=== PATIENT | female | born 1960 | race Caucasian/White ===

== ENCOUNTER → 2018-01-14 08:12 | Outpatient (CLI) | payer OTHER, SELFPAY ==
[2018-01-14 10:37] LABS: AST(SGOT) 22 U/L (15-37); Alanine Aminotransfer ALT/SGPT 29 U/L (13-56); Cholesterol 146 mg/dL (200); High Density Lipoprotein 38 mg/dL; Thyroid Stim Hormone (TSH) 0.82 uIU/mL (0.358-3.74); Triglycerides 100 mg/dL; Very Low Density Lipoprotein 20 mg/dL (5-40)
[2018-01-15 08:54] LABS: Vitamin D,25 Hydroxy 20.5 ng/mL (29.95-100.01)
== END ==
PROVIDERS: Family Provider Family Medicine; PCP Family Medicine; Visit Provider Family Medicine
DX: E78.00 Pure hypercholesterolemia, unspecified (principal); E03.9 Hypothyroidism, unspecified; E55.9 Vitamin D deficiency, unspecified
CPT/HCPCS: 36415; 80061; 82306; 84443; 84450; 84460

== ENCOUNTER → 2018-04-14 13:23 | Outpatient (CLI) | payer OTHER, SELFPAY ==
--- NOTE | 2018-04-14 13:23 | DT_ITS ---
This patient was seen during an EMR downtime April 14, 2018 - April 21, 2018. This patient may have a combination of paper and electronic documentation or all paper documentation. All documentation is viewable within the e-chart portion of [employer] for each patient visit.
--- NOTE | 2018-04-14 13:25 | BI_ITS ---
MAMMOGRAPHY - BILATERAL SCREENING REASON FOR EXAM: Female, 57 years old. Routine annual screening examination. PERTINENT HISTORY: FAM HX OF AUNT @ AGE 49 - NO PREV SURG'S - BILAT MOLES MARKED TECHNIQUE: Digital bilateral breast kanu (3D mammographic acquisition) in the CC and MLO projections. 2-D mediolateral oblique (MLO) and craniocaudad (CC) views of both breasts were obtained. CAD: Full Field Digital Mammography with Computer Added Detection was performed. COMPARISON: 05/17/2017, 05/17/2016 and 03/19/2014 FINDINGS: Breast Composition: The breasts are heterogeneously dense, which may obscure small masses. There are no dominant masses or suspicious calcifications. No other significant abnormalities are identified. BI/SCREENING MAMM (CAD), BILAT IMPRESSION: Stable bilateral screening mammogram. Yearly follow-up mammogram recommended. (A) ASSESSMENT CATEGORY: BIRADS Category 2: Benign. A letter regarding these results will be sent to the patient by the facility within 30 days. Approximately 10% of breast cancers are not detected by mammography. A normal mammogram should not delay biopsy of a clinically suspicious abnormality. [id number] Electronically Signed: Emilio Dowell MD at 14:11 EDT Tel , Service support ,
== END ==
PROVIDERS: Family Provider Family Medicine; PCP Family Medicine; Visit Provider Obstetrics & Gynecology
DX: Z12.31 Encounter for screening mammogram for malignant neoplasm of breast (principal)
CPT/HCPCS: 77063; 77067

== ENCOUNTER 2018-08-20 10:27 | Day surgery (SDC) | payer OTHER, SELFPAY ==
--- NOTE | 2018-08-15 15:13 | EKG12_ITS ---
Test Reason : PREOP Blood Pressure : / mmHG Vent. Rate : 068 BPM Atrial Rate : 068 BPM P-R Int : 188 ms QRS Dur : 090 ms QT Int : 398 ms P-R-T Axes : 025 012 034 degrees QTc Int : 423 ms Normal sinus rhythm Septal infarct , age undetermined Abnormal ECG Confirmed by YANG ESPINOZA, OTTONIEL ([id number]), greeting card editor ROSEANN CERVANTES ([id number]) on 08/18/2018 2:23:01 PM Referred By: Jane Howard Confirmed By:OTTONIEL SORIA MD
[2018-08-15 16:47] LABS: Thyroid Stim Hormone (TSH) 2.29 uIU/mL (0.358-3.74)
[2018-08-20] VITALS (10 sets, daily range): BP systolic 113–127; BP diastolic 68–80; PULSE 58–88; RESP 16–18; TEMP 36.4–37.1; O2SAT 94–100; BMI 28.5
[2018-08-20 11:07] LABS: Hematocrit 45.9 % (37-47); Hemoglobin 15.2 g/dl (12.0-15.0); Mean Corp Hgb Conc 33.1 g/gl (32-36); Mean Corpuscular Volume 93.7 fL (81-99); Mean Platelet Vol. 9.2 fl (6.2-12.0); Platelet Count 205 K/mm3 (150-450); RBC Distribution Width SD 44.3 fl (35.1-43.9); White Blood Count 7.1 K/mm3 (4.4-11.0)
[2018-08-20 11:09] LABS: Scan Indicated on CBC? Y/N NO
[2018-08-20 11:13] LABS: International Normalized Ratio 1.1
[2018-08-20 11:14] LABS: Partial Thromboplast Time 34.7 Seconds (24.1-36.2)
--- NOTE | 2018-08-20 12:19 | PCM.DC.VHY ---
Discharge Diet: No Restrictions Discharge Activity: May not drive while taking narcotic pain medications., May Shower, May Take a Tub Bath Return to work on:: 09/29/18 May resume sexual activity in: 4-6 weeks Lifting Restrictions: 20 # or less for 4-6 wk to allow healing Call your doctor if you observe: Fever of 101 or Higher, Inability to have a bowel movement, Using more than one pad per hour, Calf discomfort, Uncontrolled pain Additional Instructions: OK to walk as tolerated. Allergies/Adverse Reactions: Allergies No Known Allergies Allergy (Verified 08/13/18 14:30) Medications to take at Discharge Cholecalciferol (VIT D3) [Vitamin D3] 2,000 unit PO DAILY 07/01/15 Levothyroxine [Synthroid] 75 mcg PO DAILY 07/01/15 Atorvastatin Calcium [Lipitor] 10 mg PO QHS 08/13/18 L.acidoph,Paracasei, B.lactis [Probiotic] 1 each PO DAILY 08/13/18 Multivits Min/Iron/FA/Herb#186 [Hair, Skin and Nails Caplet] 1 each PO DAILY 08/13/18 Ubidecarenone [Coq10] 100 mg PO DAILY 08/13/18 Docusate Sodium [Colace] 100 mg PO BID #30 capsule 08/20/18 Naproxen [Naprosyn] 250 - 500 mg PO TID PRN #30 tablet 08/20/18 Oxycodone [Oxyir] 5 - 10 mg PO Q6H PRN PRN 7 Days #20 tablet 08/20/18 The following prescriptions were given: Oxycodone [Oxyir] 5 - 10 mg PO Q6H PRN PRN 7 Days #20 tablet PRN Reason: Mod-Severe Pain (-08/20) Docusate Sodium [Colace] 100 mg PO BID #30 capsule Primary Care Physician: Tory Hernandez MD [Primary Care Provider] - Test Results: Test results from this visit will be discussed in further detail at your follow-up appointment, if applicable. Please Follow Up With: Jane Howard MD - [phone] When: in 2 wks as scheduled for postop follow up appointment Proposed Discharge Date: 08/21/18
--- NOTE | 2018-08-20 12:26 | DCINST_ITS ---
Discharge Diet: No Restrictions Discharge Activity: May not drive while taking narcotic pain medications., May Shower, May Take a Tub Bath Return to work on:: 09/29/18 May resume sexual activity in: 4-6 weeks Lifting Restrictions: 20 # or less for 4-6 wk to allow healing Call your doctor if you observe: Fever of 101 or Higher, Inability to have a bowel movement, Using more than one pad per hour, Calf discomfort, Uncontrolled pain Additional Instructions: OK to walk as tolerated. Allergies/Adverse Reactions: Allergies No Known Allergies Allergy (Verified 08/13/18 14:30) Medications to take at Discharge Cholecalciferol (VIT D3) [Vitamin D3] 2,000 unit PO DAILY 07/01/15 Levothyroxine [Synthroid] 75 mcg PO DAILY 07/01/15 Atorvastatin Calcium [Lipitor] 10 mg PO QHS 08/13/18 L.acidoph,Paracasei, B.lactis [Probiotic] 1 each PO DAILY 08/13/18 Multivits Min/Iron/FA/Herb#186 [Hair, Skin and Nails Caplet] 1 each PO DAILY 08/13/18 Ubidecarenone [Coq10] 100 mg PO DAILY 08/13/18 Docusate Sodium [Colace] 100 mg PO BID #30 capsule 08/20/18 Naproxen [Naprosyn] 250 - 500 mg PO TID PRN #30 tablet 08/20/18 Oxycodone [Oxyir] 5 - 10 mg PO Q6H PRN PRN 7 Days #20 tablet 08/20/18 The following prescriptions were given: Oxycodone [Oxyir] 5 - 10 mg PO Q6H PRN PRN 7 Days #20 tablet PRN Reason: Mod-Severe Pain (-08/20) Docusate Sodium [Colace] 100 mg PO BID #30 capsule Primary Care Physician: Tory Hernandez MD [Primary Care Provider] - Test Results: Test results from this visit will be discussed in further detail at your follow- up appointment, if applicable. Please Follow Up With: Jane Howard MD - [phone] When: in 2 wks as scheduled for postop follow up appointment Proposed Discharge Date: 08/21/18
--- NOTE | 2018-08-20 12:30 | UT_PTH ---
PATIENT: TILA NEGRO LOC: [facility] – [place] U#:[id number] AGE/SX: 57/F ROOM: RE08/20/[address]: Dr. Jane Howard MD : 1960 BED: DIS: 08/21/2018 SPEC #: [id number] RECD: 08/21/18 09:32 STATUS: MEGHAN NICANOR #: [id number] GURINDER: 08/20/18 12:[address]: Jane Howard DEPT: SURGICAL PATHOLOGY RECD BY: Simon Springer ENTERED: 08/21/18 12:03 SP TYPE: UTERUS OTHR DR: Dr. Tory Hernandez MD Tissues: Uterus, NOS Procedures: Surgery Specimen Level V HEADER OPERATION: Vaginal hysterectomy, A & P repair PRE-OP DIAGNOSIS: Incomplete uterovaginal prolapse, cystocele, rectocele TISSUE SUBMITTED: Uterus and vaginal mucosa MICROSCOPIC DIAGNOSIS Uterus, hysterectomy: Cervix - minimal chronic inflammation. Endometrium - weakly proliferative to inactive endometrium. Myometrium - adenomyosis. Vaginal mucosa, anterior and posterior repair: Vascular congestion and mild chronic inflammation. AM:isaiah 08/22/18 COMMENT Case has been reviewed in consultation with Dr. Pat who concurs with the above diagnosis. IDC:SJ MICROSCOPIC DESCRIPTION Slides are reviewed. GROSS DESCRIPTION Received in fixative is one container labeled with the patient's name and designated uterus and vaginal mucosa. The specimen consists of a hysterectomy specimen consisting of uterus with cervix and detached pieces of mucosal tissue. The uterus with cervix weighs 37.2 gm and measures 7.5 x 3.5 x 3 cm. The serosal surface is congested. The ectocervical mucosa is unremarkable. The external os is slitlike in contour. The endocervical canal measures 2 cm in length and the endocervical mucosa is chapin, glistening and unremarkable. The endometrial cavity is narrow and measures 3.5 cm in length and up to 1 cm in width. The endometrium is chapin, congested and without any mass lesion and measures <0.1 cm in thickness. Sections of the uterine wall do not reveal any mass lesion and it measures up to 1.5 cm in thickness. Also present in the container are six variable sized pieces of chapin mucosal tissue measuring in aggregate 5 x 4 x 1 cm. No mucosal lesion is identified. Paranormal Investigator sections are submitted in seven cassettes as follows: 1 - anterior cervix, 2 - posterior cervix, 3 & 4 - anterior uterine wall, 5 & 6 - posterior uterine wall, 7 - mucosal tissue. / ELKE:isaiah 08/21/18 TC:5 CPT: 31282
[2018-08-20] MEDS: Lubricating Jelly 60 GM Tube 30 GM TOPICAL (12:45)
--- NOTE | 2018-08-20 16:38 | PCM.OP.BLANK ---
Operative Report Date of Procedure: 08/20/18 PROCEDURE: Total vaginal hysterectomy. Anterior and posterior repair Preoperative diagnosis: Symptomatic , incomplete uterovaginal prolapse Grade I uterine prolapse Moderate rectocele Mild cystocele Postop diagnosis: Symptomatic , incomplete uterovaginal prolapse Grade I uterine prolapse Moderate rectocele Mild cystocele Anesthesia: General Dr. Morales, Gurjit Johnson MD and Wallace Watkins CRNA Surgeon: Jane Howard MD [employer] Principal: ALEXI Farris RNFA EBL 200 cc Complications: none Drains: Frias draining clear yellow urine Fluids: replacement LR Findings: On exam under anesthesia, the cervix has mild prolapse and is parous appearing. There is a small cystocele, and rectocele noted. PATH: Uterus, Strips of vaginal mucosa. Narrative account: After the risks, benefits and alternatives of the procedure were reviewed with the patient , informed consent was obtained. The patient was taken to the Operating room with an IV running . She was positioned in the dorsal supine position on the operating table and given general anesthesia. Once asleep she was positioned to the dorsal lithotomy position and prepped and draped in the usual sterile fashion. A Frias catheter was inserted to drain the bladder and left open to drain in the drape. The weighted speculum was placed into the vagina and a single tooth tenaculum was placed at the cervix. The cervical mucosal was then incised circumferentially using Bovie cautery and a knife. The posterior cul de sac was entered by sharp dissection with Garduno scissors and a weighted speculum was placed into the posterior cul se sac. Dissection then was initiated at the anterior cervix to enter the anterior cul se sac. The uterosacral ligaments were clamped bilaterally with curved Balaji clamps and the pedicles divided and suture ligated and tagged for later identification. Next the cardinal ligament was clamped bilaterally and divided and suture ligated. Adequate hemostasis was noted. The anterior cul de sac peritoneum was then entered by sharp dissection and a narrow Martinez retractor was placed into the anterior cul de sac to retract the bladder out of harm's way for the remainder of the case. The uterine arteries were clamped bilaterally , divided and suture ligated. Dissection then continued along each side of the uterus. Each pedicle was secured with a Balaji clamp, divided and suture ligated until ultimately the uterine fundus was reached. The superior pedicles on each side were secured with a curved Balaji clamp and the uterus and attached fallopian tubes were surgically amputated and set aside. The superior pedicle was then suture ligated, then free tied and tagged for identification. The superior pedicles were dry. There was bleeding noted along the posterior vaginal cuff and along the anterior vaginal cuff . The peritoneum was then closed with a running purse string suture of 1 Vicryl, incorporating the superior pedicles and uterosacral ligament tags. There was bleeding noted at the R uterine angle and this area was oversewn with a figure of eight stitch of 1 Vicryl. Attention was then turned to the anterior repair. Allis clamps were used to grasp the anterior vaginal mucosa and the vaginal mucosa was dissected from from the underlying pubovesical cervical fascia from the vaginal cuff to a point approximately 1-2 cm away from the urethra. Liliya plication stitches of 1Vicryl were placed, reducing the small cystocele. The anterior vaginal mucosa was trimmed and the anterior vaginal incision was then repaired with interrupted stitches of 2-0 chromic. The posterior vaginal cuff was then reapproximated with the posterior cul de sac peritoneum in a running locked fashion with 1 Vicryl for hemostasis. The vaginal cuff was then reapproximated with interrupted and fig of eight stitches of 1-0 Vicryl . Excellent hemostasis was noted. Attention was then turned to the posterior repair A triangular piece of tissue was excised at the posterior vagina / perineal body and the posterior vaginal longitudinal incision was then created using Metzenbaum scissors. The linear incision was carried from the posterior introitus to approx 2-3 cm proximal to the vaginal cuff repair. The vaginal epithelium was then dissected from the underlying rectovaginal septum. Liliya plication stitches of 1-0 Vicryl were then placed reducing the rectocele. The posterior vaginal mucosa was trimmed and the linear incision closed with 2-0 chromic in a running locked fashion. Vaginal packing was then inserted: 1 plain gauze Excellent hemostasis was noted. The Frias was attached to the Frias bag and clear yellow urine returned. The patient was then awaked from general anesthesia and transferred to the recovery room bed in stable condition after tolerating the procedure well. Sponge, lap, needle and instrument counts correct times two. Medications given preop and intraoperatively included: Cefotetan IV was given chemical radiation technician to the operating room. For a complete listing of medications given preop and intraoperatively, please see the anesthesia record.
[2018-08-20] MEDS: Ketorolac 30 MG/ML Syringe IV (18:10)
[2018-08-20] MEDS: Lactated Ringers 1,000 ML 125 ML IV (18:10)
[2018-08-20] MEDS: 0.9% NaCl Peripheral Flush Adult/Peds IV (18:10)
[2018-08-20] MEDS: Docusate Sodium 100 MG Capsule PO (21:19)
[2018-08-20] MEDS: Atorvastatin Calcium 10 MG Tablet PO (21:19)
[2018-08-21] MEDS: Ketorolac 30 MG/ML Syringe IV ×2 (00:23→05:44)
[2018-08-21] MEDS: 0.9% NaCl Peripheral Flush Adult/Peds IV ×2 (00:23→05:44)
[2018-08-21 02:40] VITALS: BP 116/72; PULSE 78; RESP 18; TEMP 36.8; O2SAT 97
[2018-08-21] MEDS: Levothyroxine 75 MCG Tablet PO (05:44)
[2018-08-21 06:47] LABS: Hematocrit 39.9 % (37-47); Hemoglobin 13.3 g/dl (12.0-15.0); Mean Corp Hgb Conc 33.3 g/gl (32-36); Mean Corpuscular Hgb 31.4 pg (27.0-32.0); Mean Corpuscular Volume 94.1 fL (81-99); Mean Platelet Vol. 9.4 fl (6.2-12.0); Platelet Count 163 K/mm3 (150-450); RBC Distribution Width CV 12.7 % (11.6-14.6); Red Blood Count 4.24 M/mm3 (4.2-5.4); White Blood Count 9.7 K/mm3 (4.4-11.0)
[2018-08-21 06:49] LABS: Scan Indicated on CBC? Y/N NO
[2018-08-21 07:00] LABS: Creatinine, Serum 0.78 mg/dL (0.55-1.02); EST Glomerular Filtration Rate 81 mL/min (>60); Est Glom Filt Rate - Afr Amer 98 mL/min (>60); Estimated Creatinine Clearance 70.74 ml/min
[2018-08-21 07:15] VITALS: O2SAT 92
--- NOTE | 2018-08-21 07:58 | PCM.PROGNOTE ---
Subjective: POD#1 TVH, A and P repair Doing well. Pain control adequate Rates at 1-2/ this am. Has been getting Toradol. Using K pad off and on. No N/V Some motion sickness initially postop. No concerns today. - Physical Exam General: Alert, Oriented x3, Cooperative, No apparent distress HEENT: Atraumatic Neck: Supple Abdomen: Soft, Non Tender Neurological: Cranial nerves II-XII grossly intact Psych/Mental Status: Normal Affect Comment: Peripad with scant dischg. White in place Vaginal packing removed. Vital Signs Temp Pulse Resp BP Pulse Ox 98.2 F 78 18 116/72 97 08/21/18 02:40 08/21/18 02:40 08/21/18 02:40 08/21/18 02:40 08/21/18 02:40 Oxygen Flow Rate (L/min) 2 Oxygen Delivery Method Room Air Weight: 79.2 kg Body Mass Index (BMI) 28.5 Intake and Output for Last 24 Hours 08/19/18 08/20/18 08/21/18 23:59 23:59 23:59 Intake Total 1983 / 1983 1759 / 1759 Output Total 150 / 150 825 / 825 Balance 1834 / 1834 934 / 934 Laboratory Tests Past 24 Hrs 08/20/18 08/20/18 08/20/18 11:00 11:00 11:00 WBC 7.1 RBC 4.90 Hgb 15.2 H Hct 45.9 MCV 93.7 MCH 31.0 MCHC 33.1 RDW 13.0 RDW Differential 44.3 H Plt Count 205 MPV 9.2 PT 14.0 INR 1.1 APTT 34.7 Creatinine Estim Creat Clear Calc Est GFR (MDRD) Af Amer Est GFR (MDRD) Non-Af Blood Type A POSITIVE Antibody Screen NEGATIVE 08/21/18 08/21/18 06:24 06:24 WBC 9.7 RBC 4.24 Hgb 13.3 Hct 39.9 MCV 94.1 MCH 31.4 MCHC 33.3 RDW 12.7 RDW Differential 43.0 Plt Count 163 MPV 9.4 PT INR APTT Creatinine 0.78 Estim Creat Clear Calc 70.74 Est GFR (MDRD) Af Amer 98 Est GFR (MDRD) Non-Af 81 Blood Type Antibody Screen Medical Necessity - Tobacco Use Smoking Status: Never smoker Assessment/Plan POD#1 TVH, A and P repair. Stable postop. Inc diet and activity sa tolerated. Begin po meds. D/C white for voiding trial. Dischg later today if criteria met. RTO in 2 kw for postop check.
[2018-08-21 08:50] VITALS: BP 111/69; PULSE 76; RESP 16; TEMP 36.6; O2SAT 94
[2018-08-21] MEDS: Enoxaparin 40 MG/0.4 ML Syringe SC (08:57)
[2018-08-21] MEDS: Polyethylene Glycol 3350 17 GM PACKET PO (08:57)
[2018-08-21] MEDS: Docusate Sodium 100 MG Capsule PO (08:57)
== END 2018-08-21 10:30 | disposition home or self-care (01) ==
LOC: SDC 10:28 → AC 10:28 → MS2 15:00
PROVIDERS: Family Provider Family Medicine; PCP Family Medicine; Visit Provider Obstetrics & Gynecology
PROC: (CPT 58260; principal; 2018-08-20 12:10)
DX: N81.2 Incomplete uterovaginal prolapse (principal); N72 Inflammatory disease of cervix uteri; N80.0 Endometriosis of uterus; N76.1 Subacute and chronic vaginitis; R32 Unspecified urinary incontinence; E07.9 Disorder of thyroid, unspecified; Z79.899 Other long term (current) drug therapy
CPT/HCPCS: 57285; 58260; 36415; 82565; 84443; 85027; 85610; 85730; 86850; 86900; 88307; 93005; J7120; A4216; J2405

== ENCOUNTER → 2018-10-20 15:19 | Outpatient (CLI) | payer OTHER, SELFPAY ==
[2018-08-20 15:59] VITALS: BMI 28.5
--- NOTE | 2018-10-20 15:22 | RAD_ITS ---
STUDY: X-RAY - RIGHT SHOULDER REASON FOR EXAM: Female, 58 years old. Pain for 2 months. TECHNIQUE: 4 view(s) of the shoulder. COMPARISON: None. FINDINGS: Normal glenohumeral articulation. Normal acromioclavicular joint. Normal acromion. Normal humeral head and visualized proximal humerus. The soft tissue structures are unremarkable. Normal visualized pulmonary apex. RAD/Shoulder min 2 Views IMPRESSION: Normal x-ray examination of the shoulder. Electronically Signed: Brock De La Rosa MD at 4:07 EST , Service support ,
--- OUTSIDE RECORDS SUMMARY | 2018-12-06 21:47 | XMS RPT_ITS ---
:1960 Author Organization [place] Support Name Relationship Address Phone RICHARDDAMARIS Unavailable Unavailable + [employer] Unavailable [address] + [place] [address] DWIGHT NEGRO Unavailable [address] + [place] [address] RICHARD DAMARIS Unavailable Unavailable + [employer] Unavailable [address] + [place] [address] DWIGHT NEGRO Unavailable [address] + [place] [address] BLAKE RAMOSA Unavailable Unavailable + [employer] Unavailable [address] + [place] [address] DWIGHT NEGRO Unavailable [address] + [place] [address] BLAKE RAMOSA Unavailable Unavailable + [employer] Unavailable [address] + [place] [address] DWIGHT NEGRO Unavailable [address] + [place] [address] BLAKE RAMOSA Unavailable Unavailable + [employer] Unavailable [address] + [place] [address] DWIGHT NEGRO Unavailable [address] + [place] [address] BLAKE RAMOSA Unavailable Unavailable + [employer] Unavailable [address] + [place] [address] Sharri NEGRO Unavailable [address] + [place] [address] DAMARIS RAMOS Unavailable . + VELMA, [place] U [employer] Unavailable [address] + [place] [address] Sharri NEGRO Unavailable [address] [facility] [address] + [place] [address] Care Team Providers Name Role Phone Tory Hernandez Attending Unavailable Jolliff, Tory Referring Unavailable Jolliff, Tory Primary Care Unavailable Jolliff, Tory Attending Unavailable Jolliff, Tory Primary Care Unavailable Jolliff, Tory Referring Unavailable Jolliff, Tory Primary Care Unavailable Referred, Self Attending Unavailable Jolliff, Tory Attending Unavailable Jolliff, Tory Primary Care Unavailable Benekos, Jane Attending Unavailable Jolliff, Tory Primary Care Unavailable Benekos, Jane Referring Unavailable Benekos, Jane Attending Unavailable Benekos, Jane Referring Unavailable Jolliff, Tory Primary Care Unavailable Jose Ramon, Hutchinson Attending Unavailable Benekos, Jane Referring Unavailable PROBLEMS PROBLEMS DATE TYPE CONDITION / CODE ATTENDING STATUS SOURCE 11/26/2018 Unknown S46.919D - Strain of Mary, Tory Active [place] unspecified muscle, Community fascia and tendon at Hospital shoulder and upper arm Repository level, unspecified arm, subsequent encounter / S46.919D(ICD-10) 08/21/2018 Unknown R10.9 - Unspecified Benekos, Jane Active [place] abdominal pain / Community R10.9(ICD-10) Hospital Repository 08/21/2018 Unknown Z90.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, 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 / Hospital Z90.710(ICD-10) Repository 09/11/2018 Unknown R94.31 - Abnormal Jose Ramon, Thomas Active [place] electrocardiogram Community [ECG] [EKG] / Hospital R94.31(ICD-10) Repository 05/07/2018 Unknown Z12.31 - Encounter for Benekos, Jane Active [place] screening mammogram Community for malignant neoplasm [facility] breast / Repository Z12.31(ICD-10) PROCEDURES PROCEDURES No Procedure Records FoundRESULTS RESULTS RE-EVALUATION - PT (1) Observed: 11/27/2018 Status: F Source: [place] 11:41 AM [facility] REPOSITORY [facility] [address] [place] [address]. [address] [place] [address] / REEVALUATION / MEDICARE RECERTIFICATION PHYSICAL THERAPY MR#: [id number] Acct: [id number] Name: LYNN NEGRO Rep #: [id number] : 1960 58 From: Gurjit Reno DPT, OCS, CSCS Referring Dr.: Tory Hernandez MD Status: REG RCR Insurance: [employer] SELF PAY INSURANCE Tory Hernandez MD, It has been my pleasure to treat LYNN NEGRO over the last 6 visits for R shoulder strain. Please see the progress note below for an update on the physical therapy plan of care! Subjective: Exercises 2x/day. Pain is up and down. Last week had maddie day in whole upper back. Next day was fine. Is perservering through and not letting it bother her. No f/u scheduled with doctor. Feels more free in shoulders but stills tiff R shoulder. Sliding up the wall ex still pretty tough. No pain since Saturday. Objective/Function: 70 ext rot, 145 flexiona dn 144 abd and belt line IR. Still tight at end range but slowly improving. Sterngth is symmetrical adn without pain today in shoulder and elbows. Plan Plan: increased aggressiveness of shoulder stretches adn f/u two weeks to check ROM and back to doctor or D/C if doing better. Goals Goal 1:: Full aROM R shoulder without scapular compensation Goal Time Frame: 4-6 Weeks Goal 2:: Pain in R shoulder 90% better adn 1/10 at worst. Goal Time Frame: 4-6 Weeks Goal 3:: Dress without noticing R shoulder Goal Time Frame: 4-6 Weeks Goal 4:: I approp HEP for R shoulder pain minimization Goal Time Frame: 4-6 Weeks Anticipated Interventions Patient/Client Instruction: Educate patient on: Condition, Plan of Care For the Purpose of:: To decrease pain, To increase ROM Therapeutic Exercise to Include: Strength training, Passive ROM, Active ROM, Scapular Strength/Stabilization For the Purpose of:: To decrease pain, To increase ROM, To increase tolerance to activity/condition/position, To improve ability of physical actions for home/community/work/leisure Manual Therapy Techniques to Include: Mobilization, Passive ROM For the Purpose of:: To increase ROM Cryotherapy (ice pack, ice massage): Yes Thermo therapy (hot pack): Yes For the Purpose of:: To decrease pain, To decrease swelling/inflammation, To improve nutrient delivery to tissue Please do not hesitate to contact me at [phone] by phone or if you have questions or concerns regarding this new plan of care! Sincerely, Gurjit Reno DPT, HADLEY, CSCS <Electronically signed by HADLEY Navarro DPT, CSCS> 11/27/18 1141 CC: Tory Hernandez MD EBG Signed For Medicare only, by signing this I certify the plan of care. Physicians Signature Date INITAL EVALUATION (1) Observed: 10/29/2018 Status: F Source: [place] - PT 7:00 AM [facility] REPOSITORY [facility] [address] [place] [address] Fax REHABILITATION SERVICES INITIAL EVALUATION MR#: [id number] Acct: [id number] Name: LYNN NEGRO Rep #: [id number] : 1960 58 From: HADLEY Navarro DPT, CSCS Referring Dr.: Tory Hernandez MD Status: REG RCR Insurance: [employer] SELF PAY INSURANCE Patient's Visit Information LYNN NEGRO is a 58 year old F referred to Physical Therapy by Tory Hernandez MD with a diagnosis of R shoulder strain. Date of Evaluation: 10/27/18 Physical Therapist: Gurjit Reno DPT, HADLEY, CSCS - Visit Plan Frequency: 2x /Week Duration: 4-6 Weeks Plan: 2x/week for 2-6 weeks... 1. start with adhesive capsulitis treatment of R shoulder AA-AROM, PROM, mobs for g-h. and montior tolerance. Strength of posture adn RC. Progress HEP ROM and strength. MH prior and ice after if needed. - Subjective Findings: 2 months ago started with gentle R shoulder pain. Had hysterectomy adn lost focus on shoulder but not improving. R shoulder hurts to lift laterally and makes her slow to raise and go behind back. Has knot R biceps says her massage therapist. R scapula also has some tenderness with massage therapy. Comfortable at rest. Sleep is OK with shoulder. Sleeps on L side adn back. Taking shirt off cross armed is not possible. has to modify the way she dresses for R shoulder ROM. Reaching into cupboards is doable but has to focus due to pain. 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 Modifies basic ADLs. Activity: Hobbies include taking care of mom, reading and biking. elliptical. - Pain R shoulder Pain Intensity (Out of 10): 0 Pain Intensity Range: 0, 8 - Objective Posture is forward shoulder and forward head. Tender to touch R suprascap adn subscap and biceps tendon. reflexes 2/3 bi and tri. Sensation UE WNl to gross light touch. ROM 135 flexion and abd limited by pain and stiffness PROM same with firm endfeel. ext rotation 45 with pain, IR to belt line with pain. Both are stiff passively and scapular compensation. - ext rotation lag test. - drop arm test. + Bakari Winter. - sulcus test - Goals Goal 1:: Full aROM R shoulder without scapular compensation Goal Time Frame: 4-6 Weeks Goal 2:: Pain in R shoulder 90% better adn 1/10 at worst. Goal Time Frame: 4-6 Weeks Goal 3:: Dress without noticing R shoulder Goal Time Frame: 4-6 Weeks Goal 4:: I approp HEP for R shoulder pain minimization Goal Time Frame: 4-6 Weeks - Rehabilitation Potential Physical Therapy Diagnosis: R shoulder tendonitis vs adhesive capsulitis. Rehabilitation Potential: Fair - Anticipated Interventions Patient/Client Instruction: Educate patient on: Condition, Plan of Care For the Purpose of:: To decrease pain, To increase ROM Therapeutic Exercise to Include: Strength training, Passive ROM, Active ROM, Scapular Strength/Stabilization For the Purpose of:: To decrease pain, To increase ROM, To increase tolerance to activity/condition/position, To improve ability of physical actions for home/community/work/leisure Manual Therapy Techniques to Include: Mobilization, Passive ROM For the Purpose of:: To increase ROM Cryotherapy (ice pack, ice massage): Yes Thermo therapy (hot pack): Yes For the Purpose of:: To decrease pain, To decrease swelling/inflammation, To improve nutrient delivery to tissue Thank you for the opportunity to evaluate your patient. For Medicare and Medicare HMO plans, please review the plan of care and approve it. It will need to be FAXED BACK to us at [phone] for Medicare purposes. For Medicare only, by signing this I certify the plan of care. Please let me know if there are questions or concerns regarding this plan of care. Physician Signature: Date: <Electronically signed by Gurjit Reno DPT, OCS, CSCS> 10/29/18 0700 CC: Tory Hernandez MD EBG Signed SHOULDER MIN 2 VIEWS Observed: 10/20/2018 Status: F Source: [place] 3:22 PM [facility] REPOSITORY [facility] Imaging Services [address] [place] [id number] Shoulder min 2 Views MR#: [id number] Acct: [id number] Name: LYNN NEGRO Rep #: [id number] : 1960 F 58 From: Brock De La Rosa PCP: Tory Hernandez MD Status: REG CLI Study: Shoulder min 2 Views Date of Exam: 10/20/18 Exam# [id number] Ordering Dr: Tory Hernandez MD STUDY: X-RAY - RIGHT SHOULDER REASON FOR EXAM: Female, 58 years old. Pain for 2 months. TECHNIQUE: 4 view(s) of the shoulder. COMPARISON: None. FINDINGS: Normal glenohumeral articulation. Normal acromioclavicular joint. Normal acromion. Normal humeral head and visualized proximal humerus. The soft tissue structures are unremarkable. Normal visualized pulmonary apex. RAD/Shoulder min 2 Views IMPRESSION: Normal x-ray examination of the shoulder. Electronically Signed: Brock De La Rosa MD at 4:07 EST , Service support , CC: Tory Hernandez MD Aerospace Engineer: Signed OPERATIVE REPORT Observed: 08/21/2018 Status: F Source: [place] 8:03 AM [facility] REPOSITORY [facility] Medical Records Department [address] [place] [address] Operative Report 08/20/18 1638 MR#: [id number] Acct: [id number] Name: LYNN NEGRO Rep #: [id number] : 1960 57 From: Jane Howard MD PCP: Tory Hernandez MD Status: REG [facility] [place] Location: [facility] AT207-5 Operative Report Date of Procedure: 08/20/18 PROCEDURE: Total vaginal hysterectomy. Anterior and posterior repair Preoperative diagnosis: Symptomatic , incomplete uterovaginal prolapse Grade I uterine prolapse Moderate rectocele Mild cystocele Postop diagnosis: Symptomatic , incomplete uterovaginal prolapse Grade I uterine prolapse Moderate rectocele Mild cystocele Anesthesia: General Dr. Morales, Gurjit Johnson MD and Wallace Watkins CRNA Surgeon: Jane Howard MD Plate Glass Installer: ALEXI Farris RNFA EBL 200 cc Complications: none Drains: Frias draining clear yellow urine Fluids: replacement LR Findings: On exam under anesthesia, the cervix has mild prolapse and is parous appearing. There is a small cystocele, and rectocele noted. PATH: Uterus, Strips of vaginal mucosa. Narrative account: After the risks, benefits and alternatives of the procedure were reviewed with the patient , informed consent was obtained. The patient was taken to the Operating room with an IV running . She was positioned in the dorsal supine position on the operating table and given general anesthesia. Once asleep she was positioned to the dorsal lithotomy position and prepped and draped in the usual sterile fashion. A Frias catheter was inserted to drain the bladder and left open to drain in the drape. The weighted speculum was placed into the vagina and a single tooth tenaculum was placed at the cervix. The cervical mucosal was then incised circumferentially using Bovie cautery and a knife. The posterior cul de sac was entered by sharp dissection with Garduno scissors and a weighted speculum was placed into the posterior cul se sac. Dissection then was initiated at the anterior cervix to enter the anterior cul se sac. The uterosacral ligaments were clamped bilaterally with curved Balaji clamps and the pedicles divided and suture ligated and tagged for later identification. Next the cardinal ligament was clamped bilaterally and divided and suture ligated. Adequate hemostasis was noted. The anterior cul de sac peritoneum was then entered by sharp dissection and a narrow Delray retractor was placed into the anterior cul de sac to retract the bladder out of harm's way for the remainder of the case. The uterine arteries were clamped bilaterally , divided and suture ligated. Dissection then continued along each side of the uterus. Each pedicle was secured with a Balaji clamp, divided and suture ligated until ultimately the uterine fundus was reached. The superior pedicles on each side were secured with a curved Balaji clamp and the uterus and attached fallopian tubes were surgically amputated and set aside. The superior pedicle was then suture ligated, then free tied and tagged for identification. The superior pedicles were dry. There was bleeding noted along the posterior vaginal cuff and along the anterior vaginal cuff . The peritoneum was then closed with a running purse string suture of 1 Vicryl, incorporating the superior pedicles and uterosacral ligament tags. There was bleeding noted at the R uterine angle and this area was oversewn with a figure of eight stitch of 1 Vicryl. Attention was then turned to the anterior repair. Allis clamps were used to grasp the anterior vaginal mucosa and the vaginal mucosa was dissected from from the underlying pubovesical cervical fascia from the vaginal cuff to a point approximately 1-2 cm away from the urethra. Liliya plication stitches of 1Vicryl were placed, reducing the small cystocele. The anterior vaginal mucosa was trimmed and the anterior vaginal incision was then repaired with interrupted stitches of 2-0 chromic. The posterior vaginal cuff was then reapproximated with the posterior cul de sac peritoneum in a running locked fashion with 1 Vicryl for hemostasis. The vaginal cuff was then reapproximated with interrupted and fig of eight stitches of 1-0 Vicryl . Excellent hemostasis was noted. Attention was then turned to the posterior repair A triangular piece of tissue was excised at the posterior vagina / perineal body and the posterior vaginal longitudinal incision was then created using Metzenbaum scissors. The linear incision was carried from the posterior introitus to approx 2-3 cm proximal to the vaginal cuff repair. The vaginal epithelium was then dissected from the underlying rectovaginal septum. Liliya plication stitches of 1-0 Vicryl were then placed reducing the rectocele. The posterior vaginal mucosa was trimmed and the linear incision closed with 2-0 chromic in a running locked fashion. Vaginal packing was then inserted: 1 plain gauze Excellent hemostasis was noted. The Frias was attached to the Frias bag and clear yellow urine returned. The patient was then awaked from general anesthesia and transferred to the recovery room bed in stable condition after tolerating the procedure well. Sponge, lap, needle and instrument counts correct times two. Medications given preop and intraoperatively included: Cefotetan IV was given security operations manager to the operating room. For a complete listing of medications given preop and intraoperatively, please see the anesthesia record. 08/21/18 0803 <Electronically signed by Jane Howard MD> Date Jane Howard MD CC: Tory Hernandez MD; Jane Howard MD Signed CBC-COMPLETE BLOOD CNT Collected: 08/21/2018 Status: F Source: [place] NO DIFF 6:24 AM [facility] REPOSITORY TYPE CODE TESTS RESULT OUT OF RANGE REFERENCE UNITS LAB L100.1000 4.4-11.0 K/mm3 Normal WBC 9.7 LAB L100.1200 4.2-5.4 M/mm3 Normal RBC 4.24 LAB L100.1300 12.0-15.0 g/dl Normal HGB 13.3 LAB L100.1400 37-47 % Normal HCT 39.9 LAB L100.1500 81-99 fL Normal MCV 94.1 LAB L100.1600 27.0-32.0 pg Normal MCH 31.4 LAB L100.1700 32-36 g/gl Normal MCHC 33.3 LAB L100.1810 11.6-14.6 % Normal RDW CV 12.7 LAB L100.1820 35.1-43.9 fl Normal RDW SD 43.0 LAB L100.1900 150-450 K/mm3 Normal PLT 163 LAB L100.2000 6.2-12.0 fl Normal MPV 9.4 Performed By: #### L100.0500 #### [facility] [address] [place], [address] SERUM CREATININE AND Collected: 08/21/2018 Status: F Source: [place] GFR 6:24 AM [facility] REPOSITORY TYPE CODE TESTS RESULT OUT OF RANGE REFERENCE UNITS LAB L501.1100 0.55-1.02 mg/dL Normal 0.78 CREAT,SERUM Result Comment: The validity of the calculated GFR AND GFRAA in patients over 70 years has not been determined. Clinical correlation is essential. LAB L501.1110 >60 mL/min Normal EST GFR 81 Result Comment: Non- GFR Calc LAB L501.1115 >60 mL/min Normal EST GFR - AA 98 Result Comment: GFR Calc LAB L501.1255 ml/min Normal Estimated CRCL 70.74 Performed By: #### L501.1105 #### [facility] [address] [place], [address] UTERUS Observed: 08/20/2018 Status: F Source: [place] 12:30 PM [facility] REPOSITORY Patient: LYNN NEGRO : 1960 (57/F) Acct Num: [id number] Phys: Anita ESPINOZA,Jane Unit Num: [id number] Loc: [facility] Specimen: [id number] Received: 08/21/18931 Spec Type: UTERUS TISSUES 1 TISSUES: Uterus, NOS COMMENT Case has been reviewed in consultation with Dr. Pat who concurs with the above diagnosis. IDC:SJ GROSS DESCRIPTION Received in fixative is one container labeled with the patient's name and designated uterus and vaginal mucosa. The specimen consists of a hysterectomy specimen consisting of uterus with cervix and detached pieces of mucosal tissue. The uterus with cervix weighs 37.2 gm and measures 7.5 x 3.5 x 3 cm. The serosal surface is congested. The ectocervical mucosa is unremarkable. The external os is slitlike in contour. The endocervical canal measures 2 cm in length and the endocervical mucosa is chapin, glistening and unremarkable. The endometrial cavity is narrow and measures 3.5 cm in length and up to 1 cm in width. The endometrium is chapin, congested and without any mass lesion and measures <0.1 cm in thickness. Sections of the uterine wall do not reveal any mass lesion and it measures up to 1.5 cm in thickness. Also present in the container are six variable sized pieces of chapin mucosal tissue measuring in aggregate 5 x 4 x 1 cm. No mucosal lesion is identified. Undergraduate Intern sections are submitted in seven cassettes as follows: 1 - anterior cervix, 2 - posterior cervix, 3 AND 4 - anterior uterine wall, 5 AND 6 - posterior uterine wall, 7 - mucosal tissue. / SJ:isaiah 08/21/18 TC:5 CPT: 58838 HEADER OPERATION: Vaginal hysterectomy, A AND P repair PRE-OP DIAGNOSIS: Incomplete uterovaginal prolapse, cystocele, rectocele TISSUE SUBMITTED: Uterus and vaginal mucosa MICROSCOPIC DESCRIPTION Slides are reviewed. MICROSCOPIC DIAGNOSIS Uterus, hysterectomy: Cervix - minimal chronic inflammation. Endometrium - weakly proliferative to inactive endometrium. Myometrium - adenomyosis. Vaginal mucosa, anterior and posterior repair: Vascular congestion and mild chronic inflammation. AM:isaiah 08/22/18 Signed Christos Hardin 08/22/18 <signature on file> Performed By: #### PUT #### [facility] [address] [place], [address] DISCHARGE INSTRUCTION Observed: 08/20/2018 Status: F Source: [place] 12:27 PM [facility] REPOSITORY [facility] Medical Records Department [address] [facility] [place] [address] Instructions for Home/Discharge Instructions 08/20/18 1219 MR#: [id number] Acct: [id number] Name: LYNN NEGRO Rep #: [id number] : 1960 57 From: Jane Howard MD PCP: Tory Hernandez MD Status: REG [facility] Discharge Diet: No Restrictions Discharge Activity: May not drive while taking narcotic pain medications., May Shower, May Take a Tub Bath Return to work on:: 09/29/18 May resume sexual activity in: 4-6 weeks Lifting Restrictions: 20 # or less for 4-6 wk to allow healing Call your doctor if you observe: Fever of 101 or Higher, Inability to have a bowel movement, Using more than one pad per hour, Calf discomfort, Uncontrolled pain Additional Instructions: OK to walk as tolerated. Allergies/Adverse Reactions: Allergies No Known Allergies Allergy (Verified 08/13/18 14:30) Medications to take at Discharge Cholecalciferol (VIT D3) [Vitamin D3] 2,000 unit PO DAILY 07/01/15 Levothyroxine [Synthroid] 75 mcg PO DAILY 07/01/15 Atorvastatin Calcium [Lipitor] 10 mg PO QHS 08/13/18 L.acidoph,Paracasei, B.lactis [Probiotic] 1 each PO DAILY 08/13/18 Multivits Min/Iron/FA/Herb#186 [Hair, Skin and Nails Caplet] 1 each PO DAILY 08/13/18 Ubidecarenone [Coq10] 100 mg PO DAILY 08/13/18 Docusate Sodium [Colace] 100 mg PO BID #30 capsule 08/20/18 Naproxen [Naprosyn] 250 - 500 mg PO TID PRN #30 tablet 08/20/18 Oxycodone [Oxyir] 5 - 10 mg PO Q6H PRN PRN 7 Days #20 tablet 08/20/18 The following prescriptions were given: Oxycodone [Oxyir] 5 - 10 mg PO Q6H PRN PRN 7 Days #20 tablet PRN Reason: Mod-Severe Pain (-08/20) Docusate Sodium [Colace] 100 mg PO BID #30 capsule Primary Care Physician: Tory Hernandez MD [Primary Care Provider] - Test Results: Test results from this visit will be discussed in further detail at your follow-up appointment, if applicable. Please Follow Up With: Jane Howard MD - [phone] When: in 2 wks as scheduled for postop follow up appointment Proposed Discharge Date: 08/21/18 08/20/18 1227 <Electronically signed by Jane Howard MD> Date Jane Howard MD CC: Tory Hernandez MD CBC-COMPLETE BLOOD CNT Collected: 08/20/2018 Status: F Source: [place] NO DIFF 11:00 AM [facility] REPOSITORY TYPE CODE TESTS RESULT OUT OF RANGE REFERENCE UNITS LAB L100.1000 4.4-11.0 K/mm3 Normal WBC 7.1 LAB L100.1200 4.2-5.4 M/mm3 Normal RBC 4.90 LAB L100.1300 12.0-15.0 g/dl High HGB 15.2 LAB L100.1400 37-47 % Normal HCT 45.9 LAB L100.1500 81-99 fL Normal MCV 93.7 LAB L100.1600 27.0-32.0 pg Normal MCH 31.0 LAB L100.1700 32-36 g/gl Normal MCHC 33.1 LAB L100.1810 11.6-14.6 % Normal RDW CV 13.0 LAB L100.1820 35.1-43.9 fl High RDW SD 44.3 LAB L100.1900 150-450 K/mm3 Normal PLT 205 LAB L100.2000 6.2-12.0 fl Normal MPV 9.2 Performed By: #### L100.0500 #### [facility] [address] [place], [place], [address] PROTHROMBIN TIME W/INR Collected: 08/20/2018 Status: F Source: [place] 11:00 AM [facility] REPOSITORY TYPE CODE TESTS RESULT OUT OF RANGE REFERENCE UNITS LAB L300.4150 11.7-14.9 SECONDS Normal PROTIME 14.0 LAB L300.4200 Normal INR 1.1 Performed By: #### L300.3900, L300.4310 #### [facility] [address] [place], [place], [address] PARTIAL THROMBOPLAST Collected: 08/20/2018 Status: F Source: [place] TIME 11:00 AM [facility] REPOSITORY TYPE CODE TESTS RESULT OUT OF RANGE REFERENCE UNITS LAB L300.4310 24.1-36.2 Seconds Normal PTT 34.7 Performed By: #### L300.3900, L300.4310 #### [facility] [address] [place], [address] TYPE AND SCREEN Collected: 08/20/2018 Status: F Source: [place] 11:00 AM [facility] REPOSITORY Order Comment: Reason for Type AND Screen/Red Cells: SURGERY Surgery Date: 08/20/18 Time: 1200 Type of Surgery: HYSTERECTOMY TYPE CODE TESTS RESULT OUT OF RANGE REFERENCE UNITS LAB B10.0800 A Normal BLOOD TYPE GEL POSITIVE LAB B100.4000 Normal Antibody NEGATIVE Screen Performed By: #### B101.7450 #### [facility] [address] [place], [place], [address] 12 LEAD ELECTROCARDIOGRAM Observed: 08/18/2018 Status: F Source: [place] 2:23 PM [facility] REPOSITORY [facility] Cardiovascular Services [address] [place] [address] 12 Lead EKG 08/15/18 1520 MR#: [id number] Acct: [id number] Name: LYNN NEGRO Rep #: [id number] : 1960 57 From: Thomas Albright MD Attending Dr: Jane Howard MD Status: PRE ORC Ordering Dr: Jane Howard MD Date: 08/15/18 Location[place] [facility] [place] Sex: F C Admitted: Test Reason : PREOP Blood Pressure : / mmHG Vent. Rate : 068 BPM Atrial Rate : 068 BPM P-R Int : 188 ms QRS Dur : 090 ms QT Int : 398 ms P-R-T Axes : 025 012 034 degrees QTc Int : 423 ms Normal sinus rhythm Septal infarct , age undetermined Abnormal ECG Confirmed by THOMAS ALBRIGHT MD ([id number]), newspaper photo editor ROSEANN CERVANTES ([id number]) on 08/18/2018 2:23:01 PM Referred By: Jane Howard Confirmed By:THOMAS ALBRIGHT MD 08/18/18 1423 Date Thomas Albright MD CC: Tory Hernandez MD; Jane Howard MD Signed THYROID STIM HORMONE Collected: 08/15/2018 Status: F Source: [place] (TSH) 3:30 PM [facility] REPOSITORY TYPE CODE TESTS RESULT OUT OF RANGE REFERENCE UNITS LAB L501.9520 0.358-3.74 uIU/mL Normal TSH 2.29 Performed By: #### L501.9520 #### [facility] [address] [place], [address] DOWNTIME REPORT Observed: 05/01/2018 Status: F Source: [place] 11:59 AM [facility] Medical Records Department [address] [place] [address] Downtime Report MR#: [id number] Acct: [id number] Name: LYNN NEGRO Rep #: [id number] : 1960 57 From: Steve Cervantes PCP: Tory Hernandez MD Status: REG RCR This patient was seen during an EMR downtime April 14, 2018 - April 21, 2018. This patient may have a combination of paper and electronic documentation or all paper documentation. All documentation is viewable within the e-chart portion of [employer] for each patient visit. DOWNTIME REPORT Observed: 05/01/2018 Status: F Source: [place] 11:49 AM [facility] Medical Records Department [address] [place] [address] Downtime Report MR#: [id number] Acct: [id number] Name: LYNN NEGRO Rep #: [id number] : 1960 57 From: Steve Cervantes PCP: Tory Hernandez MD Status: REG CLI This patient was seen during an EMR downtime April 14, 2018 - April 21, 2018. This patient may have a combination of paper and electronic documentation or all paper documentation. All documentation is viewable within the e-chart portion of [employer] for each patient visit. SCREENING MAMM (CAD), Observed: 04/18/2018 Status: F Source: [place] BILAT 10:03 AM [facility] REPOSITORY [facility] Imaging Services [address] [place] [address] SCREENING MAMM (CAD), BILAT MR#: [id number] Acct: [id number] Name: LYNN NEGRO Rep #: [id number] : 1960 F 57 From: Emilio Dowell MD PCP: Tory Hernandez MD Status: REG CLI Study: SCREENING MAMM (CAD), BILAT Date of Exam: 04/14/18 Exam# [id number] Ordering Dr: Jane Howard MD MAMMOGRAPHY - BILATERAL SCREENING REASON FOR EXAM: Female, 57 years old. Routine annual screening examination. PERTINENT HISTORY: FAM HX OF AUNT @ AGE 49 - NO PREV SURG'S - BILAT MOLES MARKED TECHNIQUE: Digital bilateral breast kanu (3D mammographic acquisition) in the CC and MLO projections. 2-D mediolateral oblique (MLO) and craniocaudad (CC) views of both breasts were obtained. CAD: Full Field Digital Mammography with Computer Added Detection was performed. COMPARISON: 05/17/2017, 05/17/2016 and 03/19/2014 FINDINGS: Breast Composition: The breasts are heterogeneously dense, which may obscure small masses. There are no dominant masses or suspicious calcifications. No other significant abnormalities are identified. BI/SCREENING MAMM (CAD), BILAT IMPRESSION: Stable bilateral screening mammogram. Yearly follow-up mammogram recommended. (A) ASSESSMENT CATEGORY: BIRADS Category 2: Benign. A letter regarding these results will be sent to the patient by the facility within 30 days. Approximately 10% of breast cancers are not detected by mammography. A normal mammogram should not delay biopsy of a clinically suspicious abnormality. [id number] Electronically Signed: Emilio Dowell MD at 14:11 EDT Tel , Service support , CC: Tory Hernandez MD; Jane Howard MD Aerospace Engineer: Signed LIPID PROFILE Collected: 01/14/2018 Status: F Source: [place] 8:15 AM [facility] REPOSITORY Order Comment: Order Date: 12/04/17 Order Info: 99967-0 - LIPID Order Info: 1920-06 - AST Order Info: 1742-04 - ALT Order Date: 12/16/17 Order Info: 3016-3 - TSH TYPE CODE TESTS RESULT OUT OF RANGE REFERENCE UNITS LAB L501.4900 200 mg/dL Normal CHOL 146 Result Comment: <200 mg/dL Desirable 200-240 mg/dL Borderline >240 mg/dL High Risk LAB L501.5000 mg/dL Normal TRIG 100 Result Comment: The drugs N-Acetylcysteine and Metamizole may falsely depress this assay. Serum Triglycerides Reference Interval Normal <150 mg/dL Borderline high 150 - 199 mg/dL High 200 - 499 mg/dL Very High > or = 500 mg/dL LAB L501.6400 mg/dL Low HDL 38 Result Comment: The drugs N-Acetylcysteine and Metamizole may falsely depress this assay. Reference Range HDL <40 mg/dL Low HDL Cholesterol HDL >or= 60 mg/dL High HDL Cholesterol LAB L501.6500 0-130 mg/dL Normal LDL 88 LAB L501.6600 5-40 mg/dL Normal VLDL 20 Performed By: #### L500.4100, L501.4100, L501.4405 #### [facility] [address] [place], [address] AST(SGOT) Collected: 01/14/2018 Status: F Source: [place] 8:15 AM [facility] REPOSITORY Order Comment: Order Date: 12/04/17 Order Info: 31299-9 - LIPID Order Info: 1920-06 - AST Order Info: 17412-17 - ALT Order Date: 12/16/17 Order Info: 3016-3 - TSH TYPE CODE TESTS RESULT OUT OF RANGE REFERENCE UNITS LAB L501.4100 15-37 U/L Normal AST 22 Performed By: #### L500.4100, L501.4100, L501.4405 #### [facility] [address] [place], [address] ALANINE AMINOTRANSFERAS Collected: 01/14/2018 Status: F Source: [place] (SGPT) 8:15 AM [facility] REPOSITORY Order Comment: Order Date: 12/04/17 Order Info: 85541-4 - LIPID Order Info: 1920-06 - AST Order Info: 1742-04 - ALT Order Date: 12/16/17 Order Info: 3016-3 - TSH TYPE CODE TESTS RESULT OUT OF RANGE REFERENCE UNITS LAB L501.4405 13-56 U/L Normal ALT 29 Result Comment: Please note revised ALT reference range effective 2017. Performed By: #### L500.4100, L501.4100, L501.4405 #### [facility] [address] [place], [address] THYROID STIM HORMONE Collected: 01/14/2018 Status: F Source: [place] (TSH) 8:15 AM [facility] REPOSITORY Order Comment: Order Date: 12/04/17 Order Info: 36083-3 - LIPID Order Info: 1920-06 - AST Order Info: 1742-04 - ALT Order Date: 12/16/17 Order Info: 3016-3 - TSH TYPE CODE TESTS RESULT OUT OF RANGE REFERENCE UNITS LAB L501.9520 0.358-3.74 uIU/mL Normal TSH 0.82 Performed By: #### L501.9520, L506.1000 #### [facility] [address] [place], [address] VITAMIN D,25 HYDROXY Collected: 01/14/2018 Status: F Source: [place] 8:15 AM [facility] REPOSITORY Order Comment: Order Date: 12/16/17 Order Info: 11036-1 - VITD25 TYPE CODE TESTS RESULT OUT OF REFERENCE UNITS RANGE LAB L506.1000 29.95-100.01 ng/mL Low Vitamin D 20.5 25-OH Result Comment: Vitamin D 25(OH) Status Range Deficiency <20 ng/mL (50nmol/L) Insuffciency 20 - 30 ng/mL (50 - 75 nmol/L) Sufficiency 30 - 100 ng/mL (75 - 250 nmol/L) Toxicity >100 ng/mL (>250 nmol/L) Performed By: #### L501.9520, L506.1000 #### [facility] [address] [place], [address] ALLERGIES ALLERGIES DATE TYPE / CODE NAME / CODE REACTION SEVERITY SOURCE 08/13/2018 Drug No Known Unknown [facility] Allergy/4160 Allergies/F00 Hospital 22455(SNOMED [id number](RXNOR Repository CT) M) ENCOUNTERS ENCOUNTERS ADMIT/DISCHARGE ACCOUNT ADMITTING ENCOUNTER LOCATION SOURCE NUMBER CLASS 11/27/2018 [id number] Ambulatory [place] 4 [facility] ing:MASS Repository 11/26/2018 [id number] [facility] ing:PT Repository 10/20/2018 [id number] Ambulatory [place] 6 [facility] ing:MTRAD Repository 08/20/2018/ [id number] Ambulatory [place] 8 9 [facility] ing:SDCRoom: Repository MS211 08/15/2018 [id number] Ambulatory BMSBuilding:W [place] 6 [facility] Repository 04/14/2018 [id number] Ambulatory [place] 1 [facility] ing:OPBI Repository 01/14/2018 [id number] [facility] ing:MFPLAB Repository PAYERS PAYERS ENCOUNTER GUARANTOR PAYER SUBSCRIBER SOURCE 11/27/2018 LYNN [id number] Primary NOT [facility]K [place] [facility] Insurance:SELF PAY [place] [id number]: (041) Number: Effective Repository [phone] () Date:2017-12-09 11/26/2018 LYNN [id number] Primary EPI HIThomasJILLIAN [place] Insurance:AULTCAREAlin Arora: [place] icy Number: [id number] [facility] 13[address]Tzk: ([phone]) [id number] Repository [phone] (HP) Date:0328-28-87XV [address] [place] [phone]: 11/26/2018 Secondary NOT GIVENUNK [place] Insurance:SELF PAY [facility] Number: Effective Repository Date:2018-10-21 10/20/2018 LYNN [id number] Primary EPI [place] Insurance:AULTCAREPol Jr.: [place] icy Number: [id number] [facility] [address]Hux: 330 [id number] Repository [phone] (HP) Date:9020-44-55HF [address] [place] [phone]: 10/20/2018 Secondary NOT GIVENUNK [place] Insurance:SELF PAY [facility] Number: Effective Repository Date:2018-10-20 08/20/2018 LYNN NEGRO1248 Primary EPI [place] Insurance:AULTCAREPol Jr.: [place] Number: [id number] Hospital [id number]: 330 [id number] Repository [phone] (HP) Date:2031-74-91YB [address] [place] [phone]: 08/20/2018 Secondary NOT GIVENUNK [place] Insurance:SELF PAY [facility] Number: Effective Repository Date:2018-07-09 08/15/2018 LYNN NEGRO1248 Primary EPI [place] Insurance:AULTCAREPol Jr.: [place] icy Number: [id number] Hospital [id number]: 330 [id number] Repository [phone] (HP) Date:6385-40-82TB [address] [place] [phone]: 08/15/2018 Secondary NOT GIVENUNK [place] Insurance:SELF PAY [facility] Number: Effective Repository Date:2018-08-15 04/14/2018 Lynn [id number] Primary EPI Santana [facility] Insurance:AULTCAREPol [facility] [place] Number: [id number] Hospital [address]Tev: 330 [id number] Repository [phone] () Date:8194-20-62CP [address] [place] [phone]: 04/14/2018 Secondary NOT GIVENUNK [place] Insurance:SELF PAY [facility] Number: Effective Repository Date:2018-03-12 01/14/2018 Lynn [id number] [facility]AULTCAREPol JRDOB: [facility] [place] Number: [id number] Hospital [address]Fig: 330 [id number] Repository [phone] () Date:7370-97-26WB [address] [place] [phone]: 01/14/2018 Secondary NOT GIVENUNK [place] Insurance:SELF PAY [facility] Number: Effective Repository Date:2018-01-14
== END ==
PROVIDERS: Family Provider Family Medicine; PCP Family Medicine; Referring Provider Family Medicine; Visit Provider Family Medicine
DX: M25.511 Pain in right shoulder (principal)
CPT/HCPCS: 73030

== ENCOUNTER 2018-12-11 13:00 | Outpatient (RCR) | payer OTHER, SELFPAY ==
--- NOTE | 2018-10-27 13:46 | HP.PTEVAL_ITS ---
Patient's Visit Information TILA NEGRO is a 58 year old F referred to Physical Therapy by Tory Hernandez MD with a diagnosis of R shoulder strain. Date of Evaluation: 10/27/18 Physical Therapist: Gurjit Reno DPT, OCS, CSCS - Visit Plan Frequency: 2x /Week Duration: 4-6 Weeks Plan: 2x/week for 2-6 weeks... 1. start with adhesive capsulitis treatment of R shoulder AA-AROM, PROM, mobs for g-h. and montior tolerance. Strength of posture adn RC. Progress HEP ROM and strength. MH prior and ice after if needed. - Subjective Findings: 2 months ago started with gentle R shoulder pain. Had hysterectomy adn lost focus on shoulder but not improving. R shoulder hurts to lift laterally and makes her slow to raise and go behind back. Has knot R biceps says her massage therapist. R scapula also has some tenderness with massage therapy. Comfortable at rest. Sleep is OK with shoulder. Sleeps on L side adn back. Taking shirt off cross armed is not possible. has to modify the way she dresses for R shoulder ROM. Reaching into cupboards is doable but has to focus due to pain. 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 Modifies basic ADLs. Activity: Hobbies include taking care of mom, reading and biking. elliptical. - Pain R shoulder Pain Intensity (Out of 10): 0 Pain Intensity Range: 0, 8 - Objective Posture is forward shoulder and forward head. Tender to touch R suprascap adn subscap and biceps tendon. reflexes 2/3 bi and tri. Sensation UE WNl to gross light touch. ROM 135 flexion and abd limited by pain and stiffness PROM same with firm endfeel. ext rotation 45 with pain, IR to belt line with pain. Both are stiff passively and scapular compensation. - ext rotation lag test. - drop arm test. + Bakari Winter. - sulcus test - Goals Goal 1:: Full aROM R shoulder without scapular compensation Goal Time Frame: 4-6 Weeks Goal 2:: Pain in R shoulder 90% better adn 1/10 at worst. Goal Time Frame: 4-6 Weeks Goal 3:: Dress without noticing R shoulder Goal Time Frame: 4-6 Weeks Goal 4:: I approp HEP for R shoulder pain minimization Goal Time Frame: 4-6 Weeks - Rehabilitation Potential Physical Therapy Diagnosis: R shoulder tendonitis vs adhesive capsulitis. Rehabilitation Potential: Fair - Anticipated Interventions Patient/Client Instruction: Educate patient on: Condition, Plan of Care For the Purpose of:: To decrease pain, To increase ROM Therapeutic Exercise to Include: Strength training, Passive ROM, Active ROM, Scapular Strength/Stabilization For the Purpose of:: To decrease pain, To increase ROM, To increase tolerance to activity/condition/position, To improve ability of physical actions for home/community/work/leisure Manual Therapy Techniques to Include: Mobilization, Passive ROM For the Purpose of:: To increase ROM Cryotherapy (ice pack, ice massage): Yes Thermo therapy (hot pack): Yes For the Purpose of:: To decrease pain, To decrease swelling/inflammation, To improve nutrient delivery to tissue Thank you for the opportunity to evaluate your patient. For Medicare and Medicare HMO plans, please review the plan of care and approve it. It will need to be FAXED BACK to us at [phone] for Medicare purposes. For Medicare only, by signing this I certify the plan of care. Please let me know if there are questions or concerns regarding this plan of care. Physician Signature: Date:
--- NOTE | 2018-11-26 13:26 | HP.PTREVAL ---
Tory Hernandez MD, It has been my pleasure to treat TILA NEGRO over the last 6 visits for R shoulder strain. Please see the progress note below for an update on the physical therapy plan of care! Subjective: Exercises 2x/day. Pain is up and down. Last week had maddie day in whole upper back. Next day was fine. Is perservering through and not letting it bother her. No f/u scheduled with doctor. Feels more free in shoulders but stills tiff R shoulder. Sliding up the wall ex still pretty tough. No pain since Saturday. Objective/Function: 70 ext rot, 145 flexiona dn 144 abd and belt line IR. Still tight at end range but slowly improving. Sterngth is symmetrical adn without pain today in shoulder and elbows. Plan Plan: increased aggressiveness of shoulder stretches adn f/u two weeks to check ROM and back to doctor or D/C if doing better. Goals Goal 1:: Full aROM R shoulder without scapular compensation Goal Time Frame: 4-6 Weeks Goal 2:: Pain in R shoulder 90% better adn 1/10 at worst. Goal Time Frame: 4-6 Weeks Goal 3:: Dress without noticing R shoulder Goal Time Frame: 4-6 Weeks Goal 4:: I approp HEP for R shoulder pain minimization Goal Time Frame: 4-6 Weeks Anticipated Interventions Patient/Client Instruction: Educate patient on: Condition, Plan of Care For the Purpose of:: To decrease pain, To increase ROM Therapeutic Exercise to Include: Strength training, Passive ROM, Active ROM, Scapular Strength/Stabilization For the Purpose of:: To decrease pain, To increase ROM, To increase tolerance to activity/condition/position, To improve ability of physical actions for home/community/work/leisure Manual Therapy Techniques to Include: Mobilization, Passive ROM For the Purpose of:: To increase ROM Cryotherapy (ice pack, ice massage): Yes Thermo therapy (hot pack): Yes For the Purpose of:: To decrease pain, To decrease swelling/inflammation, To improve nutrient delivery to tissue Please do not hesitate to contact me at [phone] by phone or if you have questions or concerns regarding this new plan of care! Sincerely, Gurjit Reno, DPT, OCS, CSCS
--- NOTE | 2018-12-11 13:17 | HP.PTDCSUM ---
HP - PT D/C Summary It has been my pleasure to treat TILA NEGRO under orders from Tory Hernandez MD, for the diagnosis of R shoulder strain for a total of 7 visit(s). Discharge Date: 12/11/18 Please see the following information for a summary of their discharge status. - Subjective Subjective: Depends on the day. Is up and down. Some days feel really loose and other days gets some bad pain in R UE with movement. Tender in bicpe area today and some days into forearm. Is Ok with slow progress as long as she is sure it is frozen shoulder. - Pain R shoulder Pain Intensity (Out of 10): 1 - Overall Improvement % Improvement: 75 - Objective Objective/Function: 150 flexiona dn abduction. er:70. L3 tightness. ALL IMPROVING. Strength is 4+/5 in flexion adn ext rot and IR adn 5/5 bi and tri without pain, abduction gives slight pain and 4/5 on R. OVERALL SLOWLY IMPROVING BUT UP AND DOWN PAIN IS STILL FRUSTRATING FOR PATIENT. - Goals Goal 1:: Full aROM R shoulder without scapular compensation Goal Progress: Progressing Goal 2:: Pain in R shoulder 90% better adn 1/10 at worst. Goal Progress: Progressing Goal 3:: Dress without noticing R shoulder Goal Progress: Goal Met Goal 4:: I approp HEP for R shoulder pain minimization Goal Progress: Goal Met - Plan Plan: d/c - D/C Information Discharge Comments: Doing well, will continue via HEP and contact doctor if improvement slows. If there are questions or concerns regarding this patient's physical therapy, please feel free to call me at [phone]. Thank you for the referral of this patient. Sincerely, Gurjit Reno, DPT, OCS, CSCS
--- OUTSIDE RECORDS SUMMARY | 2019-01-29 03:32 | XMS RPT_ITS ---
:1960 Author Organization [place] Support Name Relationship Address Phone RICHARDDAMARIS Unavailable Unavailable + [employer] Unavailable [address] + [place] [address] DWIGHT NEGRO Unavailable [address] + [place] [address] RICHARD DAMARIS Unavailable Unavailable + [employer] Unavailable [address] + [place] [address] DWIGHT NEGRO Unavailable [address] + [place] [address] BLAKE RAMOSA Unavailable Unavailable + [employer] Unavailable [address] + [place] [address] DWIGHT NEGRO Unavailable [address] + [place] [address] BLAKE RAMOSA Unavailable Unavailable + [employer] Unavailable [address] + [place] [address] DWIGHT NEGRO Unavailable [address] + [place] [address] BLAKE RAMOSA Unavailable Unavailable + [employer] Unavailable [address] + [place] [address] DWIGHT NEGRO Unavailable [address] + [place] [address] BLAKE RAMOSA Unavailable Unavailable + [employer] Unavailable [address] + [place] [address] Sharri NEGRO Unavailable [address] + [place] [address] DAMARIS RAMOS Unavailable . + [place] [employer] Unavailable [address] + [place] [address] Sharri NEGRO Unavailable [address] [facility] [address] + [place] [address] Care Team Providers Name Role Phone Prasad Albrightril Attending Unavailable Benekos, Jane Referring Unavailable Benekos, Jane Attending Unavailable Benekos, Jane Referring Unavailable Jolliff, Tory Primary Care Unavailable Benekos, Jane Attending Unavailable Jolliff, Tory Primary Care Unavailable Benekos, Jane Referring Unavailable Jolliff, Tory Attending Unavailable Jolliff, Tory Primary Care Unavailable Jolliff, Tory Primary Care Unavailable Referred, Self Attending Unavailable Jolliff, Tory Attending Unavailable Jolliff, Tory Primary Care Unavailable Jolliff, Tory Referring Unavailable Jolliff, Tory Attending Unavailable Jolliff, Tory Referring Unavailable Jolliff, Tory Primary Care Unavailable PROBLEMS PROBLEMS DATE TYPE CONDITION / CODE ATTENDING STATUS SOURCE 11/26/2018 Unknown S46.919D - Strain of Jolliff, Tory Active [place] unspecified muscle, Community fascia and tendon at Hospital shoulder and upper arm Repository level, unspecified arm, subsequent encounter / S46.919D(ICD-10) 08/21/2018 Unknown R10.9 - Unspecified TykoJaen huston Active [place] abdominal pain / Community R10.9(ICD-10) Hospital Repository 08/21/2018 Unknown Z90.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 breast / Repository Z12.31(ICD-10) PROCEDURES PROCEDURES No Procedure Records FoundRESULTS RESULTS RE-EVALUATION - PT (1) Observed: 11/27/2018 Status: F Source: [place] 11:41 AM [facility] REPOSITORY [facility] Physical [facility] [address] [place] [address]. [address] [place] [address] / REEVALUATION / MEDICARE RECERTIFICATION PHYSICAL THERAPY MR#: [id number] Acct: [id number] Name: LYNN NEGRO Rep #: [id number] : 1960 58 From: Gurjit Reno DPT, [...] do not hesitate to contact me at [phone] by phone or if you have questions or concerns regarding this new plan of care! Sincerely, Gurjit Reno DPT, HADLEY, CSCS <Electronically signed by HADLEY Navarro DPT, CSCS> 11/27/18 1141 CC: Tory Hernandez MD EBG Signed For Medicare only, by signing this I certify the plan of care. Physicians Signature Date INITAL EVALUATION (1) Observed: 10/29/2018 Status: F Source: [place] - PT 7:00 AM [facility] REPOSIT[facility] Physical Therapy [facility] [address] [place] [address] Fax REHABILITATION SERVICES INITIAL EVALUATION MR#: [id number] Acct: [id number] Name: LYNN NEGRO Rep #: [id number] : 1960 58 From: HADLEY Navarro DPT, CSCS Referring Dr.: Tory Hernandez MD Status: REG RCR Insurance: [employer] SELF PAY INSURANCE Patient's Visit Information LYNN [...] but has to focus due to pain. 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 [...] to be FAXED BACK to us at [phone] for Medicare purposes. For Medicare only, by signing this I certify the plan of care. Please let me know if there are questions or concerns regarding this plan of care. Physician Signature: Date: <Electronically signed by Gurjit Reno DPT, OCS, CSCS> 10/29/18 0700 CC: Tory Hernandez MD EBG Signed SHOULDER MIN 2 VIEWS Observed: 10/20/2018 Status: F Source: [place] 3:22 PM [facility] Imaging Services [address] [place] [address] Shoulder min 2 Views MR#: [id number] Acct: [id number] Name: LYNN NEGRO Rep #: [id number] : 1960 F 58 From: Brock [place] PCP: Tory Hernandez MD Status: REG CLI Study: Shoulder min 2 Views Date of Exam: 10/20/18 Exam# [id number] Ordering Dr: Tory Hernandez MD STUDY: X-RAY [...] Service support , CC: Tory Hernandez MD In Class Special Education Teacher: Signed OPERATIVE REPORT Observed: 08/21/2018 Status: F Source: [place] 8:03 AM [facility] Medical Records Department [address] [place] [address] Operative Report 08/20/18 1638 MR#: [id number] Acct: [id number] Name: LYNN NEGRO Rep #: [id number] : 1960 57 From: Jane Howard MD PCP: Tory Hernandez MD Status: [place] [facility] [place] [facility] [id number] Operative Report Date of Procedure: 08/20/18 PROCEDURE: Total vaginal hysterectomy. Anterior and posterior repair Preoperative diagnosis: Symptomatic , incomplete uterovaginal prolapse Grade I uterine prolapse Moderate rectocele Mild cystocele Postop diagnosis: Symptomatic , incomplete uterovaginal prolapse Grade I uterine prolapse Moderate rectocele Mild cystocele Anesthesia: General Dr. Morales, Gurjit Johnson MD and Wallace Watkins CRNA Surgeon: Jane Howard MD Pearl Maker: ALEXI Farris RNFA EBL 200 cc Complications: [...] entered by sharp dissection and a narrow [place] retractor was placed into the anterior cul [...] and intraoperatively included: Cefotetan IV was given funeral location manager to the operating room. For a complete listing of medications given preop and intraoperatively, please see the anesthesia record. 08/21/18 0803 <Electronically signed by Jane Howard MD> Date Jane Howard MD CC: Tory Hernandez MD; Jane Howard MD Signed CBC-COMPLETE BLOOD CNT Collected: 08/21/2018 Status: F Source: [place] NO DIFF 6:24 AM [facility] TYPE CODE TESTS RESULT OUT OF [...] MPV 9.4 Performed By: #### L100.0500 #### [facility] Laboratory [address] [place], [address] SERUM CREATININE AND Collected: 08/21/2018 Status: F Source: [place] GFR 6:24 AM [facility] TYPE CODE TESTS RESULT OUT OF [...] CRCL 70.74 Performed By: #### L501.1105 #### [facility] Laboratory [address] [place], [address] UTERUS Observed: 08/20/2018 Status: F Source: [place] 12:30 PM [facility] Patient: LYNN NEGRO : 1960 (57/F) Acct Num: [id number] Phys: Anita ESPINOZA,Jane Unit Num: [id number] [place] [facility] Specimen: [id number] Received: 08/21/18931 Spec Type: UTERUS TISSUES 1 [...] 1 cm. No mucosal lesion is identified. Strawberry Grower sections are submitted in seven cassettes as follows: 1 - anterior cervix, 2 - posterior cervix, 3 AND 4 - anterior uterine wall, 5 AND 6 - posterior uterine wall, 7 - mucosal tissue. / SJ:isaiah 08/21/18 TC:5 CPT: 35064 HEADER OPERATION: Vaginal hysterectomy, A AND P [...] on file> Performed By: #### PUT #### [facility] Laboratory [address] [facility] [place], [address] DISCHARGE INSTRUCTION Observed: 08/20/2018 Status: F Source: [place] 12:27 PM [facility] Medical Records Department [address] [facility] [address] Instructions for Home/Discharge Instructions 08/20/18 1219 MR#: [id number] Acct: [id number] Name: LYNN NEGRO Rep #: [id number] : 1960 57 From: Jane Howard MD PCP: Tory Hernandez MD Status: REG [facility] Discharge Diet: No Restrictions Discharge Activity: May [...] Follow Up With: Jane Howard MD - [phone] When: in 2 wks as scheduled for postop follow up appointment Proposed Discharge Date: 08/21/18 08/20/18 1227 <Electronically signed by Jane Howard MD> Date Jane Howard MD CC: Tory Hernandez MD CBC-COMPLETE BLOOD CNT Collected: 08/20/2018 Status: F Source: [place] NO DIFF 11:00 AM [facility] TYPE CODE TESTS RESULT OUT OF [...] MPV 9.2 Performed By: #### L100.0500 #### [facility] Laboratory [address] [place], [place], [address] PROTHROMBIN TIME W/INR Collected: 08/20/2018 Status: F Source: [place] 11:00 AM [facility] TYPE CODE TESTS RESULT OUT OF RANGE REFERENCE UNITS LAB L300.4150 11.7-14.9 SECONDS Normal PROTIME 14.0 LAB L300.4200 Normal INR 1.1 Performed By: #### L300.3900, L300.4310 #### [facility] [address] [place], [place], [address] PARTIAL THROMBOPLAST Collected: 08/20/2018 Status: F Source: [place] TIME 11:00 AM [facility] TYPE CODE TESTS RESULT OUT OF RANGE REFERENCE UNITS LAB L300.4310 24.1-36.2 Seconds Normal PTT 34.7 Performed By: #### L300.3900, L300.4310 #### [facility] [address] [place], [address] TYPE AND SCREEN Collected: 08/20/2018 Status: F Source: [place] 11:00 AM [facility] Order Comment: Reason for Type AND Screen/Red Cells: SURGERY Surgery Date: 08/20/18 Time: 1200 Type of Surgery: HYSTERECTOMY TYPE CODE TESTS RESULT OUT OF RANGE REFERENCE UNITS LAB B10.0800 A Normal BLOOD TYPE GEL POSITIVE LAB B100.4000 Normal Antibody NEGATIVE Screen Performed By: #### B101.7450 #### [facility] [address] [facility] [place], [place], [address] 12 LEAD ELECTROCARDIOGRAM Observed: 08/18/2018 Status: F Source: [place] 2:23 PM [facility] Cardiovascular Services [address] [place] [address] 12 Lead EKG 08/15/18 1520 MR#: [id number] Acct: [id number] Name: LYNN NEGRO Rep #: [id number] : 1960 57 From: Thomas Albright MD Attending Dr: Jane Howard MD Status: PRE ARC Ordering Dr: Jane Howard MD Date: 08/15/18 [place] [facility] Sex: F C Admitted: Test Reason : [...] ECG Confirmed by THOMAS ALBRIGHT MD ([id number]), multimedia editor ROSEANN CERVANTES ([id number]) on 08/18/2018 2:23:01 PM Referred By: Jane Howard Confirmed By:THOMAS ALBRIGHT MD 08/18/18 1423 Date Thomas Albright MD CC: Tory Hernandez MD; Jane Howard MD Signed THYROID STIM HORMONE Collected: 08/15/2018 Status: F Source: [place] (TSH) 3:30 PM [facility] RE[facility] TYPE CODE TESTS RESULT OUT OF RANGE REFERENCE UNITS LAB L501.9520 0.358-3.74 uIU/mL Normal TSH 2.29 Performed By: #### L501.9520 #### [facility] [address] [place], [address] DOWNTIME REPORT Observed: 05/01/2018 Status: F Source: [place] 11:59 AM [facility] Medical Records Department [address] [place] [address] Downtime Report MR#: [id number] Acct: [id number] Name: LYNN NEGRO Rep #: [id number] : 1960 57 From: Steve Cervantes PCP: Tory Hernandez MD Status: REG RCR This patient was seen during an EMR downtime April 14, 2018 - April 21, 2018. This patient may have a combination of paper and electronic documentation or all paper documentation. All documentation is viewable within the e-chart portion of [employer] for each patient visit. DOWNTIME REPORT Observed: 05/01/2018 Status: F Source: [place] 11:49 AM [facility] Medical Records Department [address] [place] [address] Downtime Report MR#: [id number] Acct: [id number] Name: LYNN NEGRO Rep #: [id number] : 1960 57 From: Steve Cervantes PCP: Tory Hernandez MD Status: REG CLI This patient was seen during an EMR downtime April 14, 2018 - April 21, 2018. This patient may have a combination of paper and electronic documentation or all paper documentation. All documentation is viewable within the e-chart portion of [employer] for each patient visit. SCREENING MAMM (CAD), Observed: 04/18/2018 Status: F Source: [place] BILAT 10:03 AM [facility] REPOS[facility] Imaging Services [address] [place] [address] SCREENING MAMM (CAD), BILAT MR#: [id number] Acct: [id number] Name: LYNN NEGRO Rep #: [id number] : 1960 F 57 From: Emilio Dowell MD PCP: Tory Hernandez MD Status: REG CLI Study: SCREENING MAMM (CAD), BILAT Date of Exam: 04/14/18 Exam# [id number] Ordering Dr: Jane Howard MD MAMMOGRAPHY - [...] delay biopsy of a clinically suspicious abnormality. [id number] Electronically Signed: Emilio Dowell MD at 14:11 EDT Tel , Service support , CC: Tory Hernandez MD; Jane Howard MD In Class Special Education Teacher: Signed LIPID PROFILE Collected: 01/14/2018 Status: F Source: [place] 8:15 AM [facility] Order Comment: Order Date: 12/04/17 Order Info: 33599-6 - LIPID Order Info: 1920-06 - AST [...] Performed By: #### L500.4100, L501.4100, L501.4405 #### [facility] [address] [place], [address] AST(SGOT) Collected: 01/14/2018 Status: F Source: [place] 8:15 AM [facility] Order Comment: Order Date: 12/04/17 Order Info: 95243-1 - LIPID Order Info: 1920-06 - AST Order Info: 17412-17 - ALT Order Date: 12/16/17 Order Info: 3016-3 - TSH TYPE CODE TESTS RESULT OUT OF RANGE REFERENCE UNITS LAB L501.4100 15-37 U/L Normal AST 22 Performed By: #### L500.4100, L501.4100, L501.4405 #### [facility] [address] [place], [address] ALANINE AMINOTRANSFERAS Collected: 01/14/2018 Status: F Source: [place] (SGPT) 8:15 AM [facility] Order Comment: Order Date: 12/04/17 Order Info: 05832-5 - LIPID Order Info: 1920-06 - AST Order Info: 1742-04 - ALT Order Date: 12/16/17 Order Info: 3016-3 - TSH TYPE CODE TESTS RESULT OUT OF RANGE REFERENCE UNITS LAB L501.4405 13-56 U/L Normal ALT 29 Result Comment: Please note revised ALT reference range effective 2017. Performed By: #### L500.4100, L501.4100, L501.4405 #### [facility] [address] [place], [address] THYROID STIM HORMONE Collected: 01/14/2018 Status: F Source: [place] (TSH) 8:15 AM [facility] Order Comment: Order Date: 12/04/17 Order Info: 80289-4 - LIPID Order Info: 1920-06 - AST Order Info: 1742-04 - ALT Order Date: 12/16/17 Order Info: 3016-3 - TSH TYPE CODE TESTS RESULT OUT OF RANGE REFERENCE UNITS LAB L501.9520 0.358-3.74 uIU/mL Normal TSH 0.82 Performed By: #### L501.9520, L506.1000 #### [facility] [address] [place], [address] VITAMIN D,25 HYDROXY Collected: 01/14/2018 Status: F Source: [place] 8:15 AM [facility] REPOSITORY Order Comment: Order Date: 12/16/17 Order Info: 76930-3 - VITD25 TYPE CODE TESTS RESULT OUT OF REFERENCE UNITS RANGE LAB L506.1000 29.95-100.01 ng/mL Low Vitamin D 20.5 25-OH Result Comment: Vitamin D 25(OH) Status Range Deficiency <20 ng/mL (50nmol/L) Insuffciency 20 - 30 ng/mL (50 - 75 nmol/L) Sufficiency 30 - 100 ng/mL (75 - 250 nmol/L) Toxicity >100 ng/mL (>250 nmol/L) Performed By: #### L501.9520, L506.1000 #### [facility] [address] [place], [address] ALLERGIES ALLERGIES DATE TYPE / CODE NAME / CODE REACTION SEVERITY SOURCE 08/13/2018 Drug No Known Unknown [facility] Allergy/4160 Allergies/F00 Hospital 43149(SNOMED 7450238(RXNOR Repository CT) M) ENCOUNTERS ENCOUNTERS ADMIT/DISCHARGE ACCOUNT ADMITTING ENCOUNTER LOCATION SOURCE NUMBER CLASS 11/27/2018 [id number] [place] [address] [facility] ing:MASS Repository 11/26/2018 [id number] [facility] [address] [facility] ing:PT Repository 10/20/2018 [id number] Amb[place] [address] [facility] ing:MTRAD Repository 08/20/2018/ [id number] Ambulatory [place] [address] [facility] ing:SDCRoom: Repository MS211 08/15/2018 [id number] Ambulatory BMSBuilding:W [place] 6 [facility] Repository 04/14/2018 [id number] Amb[place] [address] [facility] ing:OPBI Repository 01/14/2018 [id number] [facility] [address] [facility] ing:MFPLAB Repository PAYERS PAYERS ENCOUNTER GUARANTOR PAYER SUBSCRIBER SOURCE 11/27/2018 LYNN [id number] Primary [facility]UNK [place] [facility] Insurance:SELF PAY [place] [id number]: (372) Number: Effective Repository [phone] () Date:2017-12-09 11/26/2018 LYNN NEGRO1248 Primary EPI HIThomasJILLIAN [place] [address] Insurance:AULTCAREAlin Arora: [place] icy Number: [id number] [facility] [address]Wkb: [phone]) [id number] Repository [phone] (HP) Date:6849-63-23JF [address] [place] [id number]: 11/26/2018 Secondary NOT GIVENUNK [place] Insurance:SELF PAY [facility] Number: Effective Repository Date:2018-10-21 10/20/2018 LYNN NEGRO1248 Primary EPI [place] [address] Insurance:AULTCAREPol Jr.: [place] Number: [id number] [address]Kxe: 330 [id number] Repository [phone] (HP) Date:7319-06-81HR [address] [place] [id number]: 10/20/2018 Secondary NOT GIVENUNK [place] Insurance:SELF PAY [facility] Number: Effective Repository Date:2018-10-20 08/20/2018 LYNN NEGRO1248 Primary EPI [place] [address] Insurance:AULTCAREPol Jr.: [place] Number: [id number] [address]Vaj: 330 [id number] Repository [phone] (HP) Date:1236-50-55KF [address] [place] [id number]: 08/20/2018 Secondary NOT GIVENUNK [place] Insurance:SELF PAY [facility] Number: Effective Repository Date:2018-07-09 08/15/2018 LYNN NEGRO1248 Primary EPI [place] [address] Insurance:AULTCAREPol Jr.: [place] icy Number: [id number] Hospital [address]Jtr: 330 [id number] Repository [phone] (HP) Date:4495-73-75RZ [address] [place] [address]YG: 08/15/2018 Secondary NOT GIVENUNK [place] Insurance:SELF PAY [facility] Number: Effective Repository Date:2018-08-15 04/14/2018 Lynn [id number] Primary EPI [place] [facility] Insurance:AULTCAREPol [facility] [place] Number: [id number] [address]Ppz: 330 [id number] Repository [phone] () Date:2231-37-37US [address] [place] [phone]: 04/14/2018 Secondary NOT GIVENUNK [place] Insurance:SELF PAY [facility] Number: Effective Repository Date:2018-03-12 01/14/2018 Lynn [id number] [facility] [facility]AULTCAREPol JRD[facility] [place] Number: [id number] [address]Ayo: 330 [id number] Repository [phone] () Date:7324-13-99FE [address] [place] [phone]: 01/14/2018 Secondary NOT GIVENUNK [place] Insurance:SELF PAY [facility] Number: Effective Repository Date:2018-01-14
== END 2018-12-11 19:00 | disposition home or self-care (01) ==
LOC: PT 13:00
PROVIDERS: Family Provider Family Medicine; PCP Family Medicine; Referring Provider Family Medicine; Visit Provider Family Medicine
DX: S46.919D Strain of unspecified muscle, fascia and tendon at shoulder and upper arm level, unspecified arm, subsequent encounter (principal)
CPT/HCPCS: 97110; 97162; 97530

== ENCOUNTER → 2019-01-09 08:02 | Outpatient (CLI) | payer OTHER, SELFPAY ==
[2019-01-09 10:34] LABS: Vitamin D,25 Hydroxy 16.5 ng/mL (29.95-100.01)
[2019-01-09 10:36] LABS: AST(SGOT) 21 U/L (15-37); Alanine Aminotransfer ALT/SGPT 28 U/L (13-56); Cholesterol 142 mg/dL (200); High Density Lipoprotein 41 mg/dL; Triglycerides 114 mg/dL; Very Low Density Lipoprotein 23 mg/dL (5-40)
== END ==
PROVIDERS: Family Provider Family Medicine; PCP Family Medicine; Referring Provider Family Medicine; Visit Provider Family Medicine
DX: Z00.00 Encounter for general adult medical examination without abnormal findings (principal)
CPT/HCPCS: 36415; 80061; 82306; 84450; 84460

== ENCOUNTER → 2019-04-13 13:33 | Outpatient (CLI) | payer OTHER, SELFPAY ==
[2018-08-20 15:59] VITALS: BMI 28.5
--- NOTE | 2019-04-13 13:36 | BI_ITS ---
MAMMOGRAPHY - BILATERAL SCREENING REASON FOR EXAM: Female, 58 years old. Routine annual screening examination. PERTINENT HISTORY: Aunt with breast cancer. TECHNIQUE: Digital bilateral breast charlotte (3D mammographic acquisition) in the CC and MLO projections. 2-D mediolateral oblique (MLO) and craniocaudad (CC) views of both breasts were obtained. CAD: Full Field Digital Mammography with Computer Added Detection was performed. COMPARISON: Comparison is made with prior study dated April 14, 2018 and May 17, 2017. FINDINGS: Breast Composition: The breasts are heterogeneously dense, which may obscure small masses. There are no dominant masses or suspicious calcifications. No other significant abnormalities are identified. There has been no significant change since the prior study. BI/SCREEN MAMM (CAD) W/CHARLOTTE BILAT IMPRESSION: Stable bilateral screening mammogram. Yearly follow-up mammogram recommended. (A) ASSESSMENT CATEGORY: BIRADS Category 1: Negative. A letter regarding these results will be sent to the patient by the facility within 30 days. Approximately 10% of breast cancers are not detected by mammography. A normal mammogram should not delay biopsy of a clinically suspicious abnormality. [id number] Electronically Signed: Avni Blake, at 9:12 EDT , Service support ,
== END ==
PROVIDERS: Family Provider Family Medicine; PCP Family Medicine; Referring Provider Family Medicine; Visit Provider Family Medicine
DX: Z12.31 Encounter for screening mammogram for malignant neoplasm of breast (principal)
CPT/HCPCS: 77063; 77067

== ENCOUNTER → 2019-07-01 | Outpatient (CLI) | payer OTHER, SELFPAY ==
[2018-08-20 15:59] VITALS: BMI 28.5
[2019-07-01 14:33] LABS: Free T3 2.7 pg/mL (2.18-3.98); Thyroid Stim Hormone (TSH) 1.43 uIU/mL (0.358-3.74)
== END | disposition home or self-care (01) ==
LOC: MFPLAB 12:17
PROVIDERS: Family Provider Family Medicine; PCP Family Medicine; Referring Provider Family Medicine; Visit Provider Family Medicine
DX: E03.9 Hypothyroidism, unspecified (principal)
CPT/HCPCS: 36415; 84436; 84443; 84481

== ENCOUNTER → 2020-04-08 14:03 | Outpatient (CLI) | payer SELFPAY ==
[2020-04-08 18:13] LABS: Vitamin D,25 Hydroxy 31.7 ng/mL
[2020-04-08 18:26] LABS: Cholesterol 180 mg/dL (200); High Density Lipoprotein 39 mg/dL; T4 Total, Thyroxin 10.8 ug/dL (4.8-13.9); Thyroid Stim Hormone (TSH) 0.84 uIU/mL (0.358-3.74); Triglycerides 103 mg/dL; Very Low Density Lipoprotein 21 mg/dL (5-40)
== END ==
PROVIDERS: PCP Family Medicine; Referring Provider Family Medicine; Visit Provider Family Medicine
DX: E03.9 Hypothyroidism, unspecified (principal); E55.9 Vitamin D deficiency, unspecified; E78.00 Pure hypercholesterolemia, unspecified
CPT/HCPCS: 36415; 80061; 82306; 84436; 84443

== ENCOUNTER → 2021-04-28 09:23 | Outpatient (CLI) | payer OTHER, SELFPAY ==
[2018-08-20 15:59] VITALS: BMI 28.5
[2021-04-28 12:47] LABS: Creatinine, Serum 0.91 mg/dL (0.55-1.02); EST Glomerular Filtration Rate 67 mL/min (>60); Est Glom Filt Rate - Afr Amer 81 mL/min (>60)
== END ==
PROVIDERS: PCP Family Medicine; Referring Provider Otolaryngology; Visit Provider Otolaryngology
DX: H93.12 Tinnitus, left ear (principal)
CPT/HCPCS: 36415; 82565

== ENCOUNTER → 2021-05-18 16:31 | Outpatient (CLI) | payer OTHER, SELFPAY ==
--- NOTE | 2021-05-18 17:18 | MRI_ITS ---
STUDY: MRI BRAIN WITH AND WITHOUT CONTRAST REASON FOR EXAM: Female, 60 years old. L WILFRED, TECHNIQUE: Standardized multiplanar fat and water weighted pulse sequences were obtained. IV DOTAREM 15CC was administered for the contrast portion of the examination. COMPARISON: None. FINDINGS: Normal size of the ventricles and extra-axial spaces for the patient''s age. Normal white matter tracts of the supratentorial brain. Normal bilateral basal ganglia. Normal thalami. There is no extra-axial fluid accumulation. Normal flow voids within the major intracranial circulation suggesting patency by spin echo criteria. Normal venous enhancement. There is no enhancing intra-axial or extra-axial abnormality. Normal sella turcica, pituitary gland, infundibular stalk, optic chiasm and hypothalamus. Normal tectal plate and pineal gland. Normal midbrain, angelo and medulla. Normal cerebellum. Normal basal cisterns. Normal bilateral temporal bones. Normal bilateral internal auditory canals. No demonstrated orbital abnormality, within the constraints of a routine brain study. Normal visualized paranasal sinuses. Normal calvarium and skull base. Normal visualized soft tissue structures. Normal visualized upper cervical spine. MRI/Brain W/WO Contrast IMPRESSION: Normal unenhanced and enhanced MRI of the brain. Electronically Signed: Klever Sims MD at 21:01 EDT , Service support ,
[2021-05-18 17:21] LABS: CREATININE FINGERSTICK 0.7 mg/dL (0.55-1.02); EGFR FINGERSTICK > 60.0000 mL/min (>60)
== END ==
PROVIDERS: PCP Family Medicine; Referring Provider Otolaryngology; Visit Provider Otolaryngology
DX: H93.12 Tinnitus, left ear (principal)
CPT/HCPCS: 70553; A9575

== ENCOUNTER → 2021-08-08 10:19 | Outpatient (CLI) | payer OTHER, SELFPAY | PROVIDERS: PCP Family Medicine; Referring Provider Family Medicine; Visit Provider Family Medicine | DX: Z00.00 Encounter for general adult medical examination without abnormal findings (principal) ==

== ENCOUNTER → 2021-08-24 09:16 | Outpatient (CLI) | payer OTHER, SELFPAY ==
[2021-08-24 11:36] LABS: AST(SGOT) 12 U/L (15-37); Alanine Aminotransfer ALT/SGPT 22 U/L (13-56); Cholesterol 179 mg/dL (200); High Density Lipoprotein 38 mg/dL; T4 Total, Thyroxin 10.4 ug/dL (4.8-13.9); Thyroid Stim Hormone (TSH) 1.36 uIU/mL (0.358-3.74); Triglycerides 118 mg/dL; Very Low Density Lipoprotein 24 mg/dL (5-40)
== END ==
PROVIDERS: PCP Family Medicine; Referring Provider Family Medicine; Visit Provider Family Medicine
DX: E78.00 Pure hypercholesterolemia, unspecified (principal); E03.9 Hypothyroidism, unspecified
CPT/HCPCS: 80061; 82306; 84436; 84443; 84450; 84460

== ENCOUNTER → 2022-06-18 | Outpatient (CLI) | payer OTHER, SELFPAY ==
--- NOTE | 2022-06-18 08:01 | BI_ITS ---
MAMMOGRAPHY - BILATERAL SCREENING REASON FOR EXAM: Female, 61 years old. Routine annual screening examination. PERTINENT HISTORY: Aunt with breast cancer. TECHNIQUE: Digital bilateral breast charlotte (3D mammographic acquisition) in the CC and MLO projections. 2-D mediolateral oblique (MLO) and craniocaudad (CC) views of both breasts were obtained. CAD: Full Field Digital Mammography with Computer Added Detection was performed. COMPARISON: Comparison is made with prior study dated 04/13/2019 and 04/14/2018. FINDINGS: Breast Composition: The breasts are heterogeneously dense, which may obscure small masses. There are no dominant masses or suspicious calcifications. No other significant abnormalities are identified. There has been no significant change since the prior study. BI/SCRN MAMM (CAD)W/CHARLOTTE BILAT IMPRESSION: Stable bilateral screening mammogram. Yearly follow-up mammogram recommended. (A) ASSESSMENT CATEGORY: BIRADS Category 1: Negative. A letter regarding these results will be sent to the patient by the facility within 30 days. Approximately 10% of breast cancers are not detected by mammography. A normal mammogram should not delay biopsy of a clinically suspicious abnormality. [id number] Electronically Signed: Avni Blake MD at 11:06 EDT ,
== END | disposition home or self-care (01) ==
LOC: OPBI 07:56
PROVIDERS: PCP Family Medicine; Visit Provider Obstetrics & Gynecology
DX: Z12.31 Encounter for screening mammogram for malignant neoplasm of breast (principal)
CPT/HCPCS: 77063; 77067

== ENCOUNTER → 2023-01-14 | Outpatient (CLI) | payer OTHER, SELFPAY ==
[2023-01-14 13:34] LABS: AST(SGOT) 16 U/L (15-37); Alanine Aminotransfer ALT/SGPT 24 U/L (13-56); Cholesterol 176 mg/dL (200); High Density Lipoprotein 38 mg/dL; PTHIN 62.3 pg/mL (18.4-80.1); T4 Total, Thyroxin 11.9 ug/dL (4.8-13.9); Thyroid Stim Hormone (TSH) 1.21 uIU/mL (0.358-3.74); Triglycerides 123 mg/dL; Very Low Density Lipoprotein 25 mg/dL (5-40)
[2023-01-14 13:35] LABS: Vitamin D,25 Hydroxy 34.9 ng/mL
== END | disposition home or self-care (01) ==
LOC: MFPLAB 10:35
PROVIDERS: PCP Family Medicine; Visit Provider Family Medicine
DX: E55.9 Vitamin D deficiency, unspecified (principal); E03.9 Hypothyroidism, unspecified
CPT/HCPCS: 36415; 80061; 82306; 83970; 84436; 84443; 84450; 84460

== ENCOUNTER → 2023-06-24 | Outpatient (CLI) | payer OTHER, SELFPAY ==
--- NOTE | 2023-06-24 13:08 | BI_ITS ---
MAMMOGRAPHY - BILATERAL SCREENING REASON FOR EXAM: Female, 62 years old. Routine annual screening examination. PERTINENT HISTORY: Aunt with breast cancer. TECHNIQUE: Digital bilateral breast charlotte (3D mammographic acquisition) in the CC and MLO projections. 2-D mediolateral oblique (MLO) and craniocaudad (CC) views of both breasts were obtained. CAD: Full Field Digital Mammography with Computer Added Detection was performed. COMPARISON: Comparison is made with prior study June 18, 2022 and April 13, 2019. FINDINGS: Breast Composition: The breasts are extremely dense, which lowers the sensitivity of mammography. There are no dominant masses or suspicious calcifications. No other significant abnormalities are identified. There has been no significant change since the prior study. BI/SCRN MAMM (CAD)W/CHARLOTTE BILAT IMPRESSION: Stable bilateral screening mammogram. Yearly follow-up mammogram recommended. (A) ASSESSMENT CATEGORY: BIRADS Category 1: Negative. A letter regarding these results will be sent to the patient by the facility within 30 days. Approximately 10% of breast cancers are not detected by mammography. A normal mammogram should not delay biopsy of a clinically suspicious abnormality. [id number] Electronically Signed: Avni Blake MD at 14:59 EDT ,
== END | disposition home or self-care (01) ==
LOC: OPBI 13:08
PROVIDERS: PCP Family Medicine; Referring Provider Obstetrics & Gynecology; Visit Provider Obstetrics & Gynecology
DX: Z12.31 Encounter for screening mammogram for malignant neoplasm of breast (principal)
CPT/HCPCS: 77063; 77067

== ENCOUNTER → 2024-01-15 | Outpatient (CLI) | payer OTHER, SELFPAY ==
[2024-01-16 10:25] LABS: Cholesterol 172 mg/dL (200); High Density Lipoprotein 43 mg/dL; T4 Free Direct 1.14 ng/dL (0.76-1.46); Thyroid Stim Hormone (TSH) 1.66 uIU/mL (0.358-3.74); Triglycerides 112 mg/dL; Very Low Density Lipoprotein 22 mg/dL (5-40)
== END | disposition home or self-care (01) ==
LOC: MFPLAB 08:29
PROVIDERS: PCP Family Medicine; Visit Provider Family Medicine
DX: E03.9 Hypothyroidism, unspecified (principal)
CPT/HCPCS: 36415; 80061; 84439; 84443

== ENCOUNTER → 2024-06-29 | Outpatient (CLI) | payer OTHER, SELFPAY ==
--- NOTE | 2024-06-29 10:08 | BI_ITS ---
MAMMOGRAPHY - BILATERAL SCREENING REASON FOR EXAM: Female, 63 years old. Routine annual screening examination. PERTINENT HISTORY: Aunt with breast cancer. TECHNIQUE: Digital bilateral breast charlotte (3D mammographic acquisition) in the CC and MLO projections. 2-D mediolateral oblique (MLO) and craniocaudad (CC) views of both breasts were obtained. CAD: Full Field Digital Mammography with Computer Added Detection was performed. COMPARISON: Comparison is made with prior study June 24, 2023 and June 18, 2022. FINDINGS: Breast Composition: The breasts are extremely dense, which lowers the sensitivity of mammography. There are no dominant masses or suspicious calcifications. Stable small benign-appearing bilateral axillary lymph nodes. No other significant abnormalities are identified. There has been no significant change since the prior study. BI/SCRN MAMM (CAD)W/CHARLOTTE BILAT IMPRESSION: Stable bilateral screening mammogram. Yearly follow-up mammogram recommended. (A) ASSESSMENT CATEGORY: BIRADS Category 2: Benign. A letter regarding these results will be sent to the patient by the facility within 30 days. Approximately 10% of breast cancers are not detected by mammography. A normal mammogram should not delay biopsy of a clinically suspicious abnormality. [id number] Electronically Signed: Avni Blake MD at 11:00 EDT ,
== END | disposition home or self-care (01) ==
LOC: OPBI 10:08
PROVIDERS: PCP Family Medicine; Referring Provider Advanced Practice Midwife; Visit Provider Advanced Practice Midwife
DX: Z12.31 Encounter for screening mammogram for malignant neoplasm of breast (principal)
CPT/HCPCS: 77063; 77067

== ENCOUNTER → 2025-02-01 | Outpatient (CLI) | payer MEDICARE, OTHER, SELFPAY ==
[2025-02-01 22:44] LABS: AST(SGOT) 22 U/L (<=31); Alanine Aminotransfer ALT/SGPT 16 U/L (<=34); T4 Total, Thyroxin 8.5 ug/dL (4.8-13.9)
[2025-02-01 23:10] LABS: Cholesterol 170 mg/dL (<=200); High Density Lipoprotein 42 mg/dL; Low Density Lipoprotein Calc. 111 mg/dL; Triglycerides 85 mg/dL; Very Low Density Lipoprotein 17 mg/dL (5-40); cholesterol:hdl ratio screen 4.01
[2025-02-02 22:31] LABS: Hemoglobin A1c 5.6 % (<=5.6)
== END | disposition home or self-care (01) ==
LOC: MTLAB 14:50
PROVIDERS: PCP Family Medicine
DX: Z13.29 Encounter for screening for other suspected endocrine disorder (principal); Z13.220 Encounter for screening for lipoid disorders; Z13.1 Encounter for screening for diabetes mellitus
CPT/HCPCS: 36415; 80061; 83036; 84436; 84443; 84450; 84460

== ENCOUNTER → 2025-02-04 | Outpatient (CLI) | payer MEDICARE, OTHER, SELFPAY ==
--- NOTE | 2025-02-04 13:44 | BD_ITS ---
EXAM: DEXA BONE DENSITY STUDY 02/04/2025 REASON FOR EXAM: F,64 y/o patient is postmenopausal. TECHNIQUE: DXA scan of the lumbar spine and total body less head, using make and model. REFERENCE LINKS: ISCD Pediatric Positions ISCD Adult Positions COMPARISON: None. FINDINGS: BMD and Z-SCORES DEXA examination of lumbar spine shows bone mineral density measured 0.975 grams/centimeter squared. T-score measures -0.7 and Z-score measures 1.1. DEXA examination left femoral neck shows a bone mineral density measured 0.733 grams/centimeter squared. T-score measures -1.0 and Z-score measures 0.5. Total bone mineral density of the left hip measures 0.941 grams/centimeter squared. T-score measured 0 and Z-score measures 1.2. DEXA examination right femoral neck shows a bone mineral density measured 0.781 grams/centimeter squared. T-score measures -0.6 and Z-score measures 0.9. Total bone mineral density of the right hip measures 0.967 grams/centimeter squared. T-score measures 0.2 and Z-score measures 1.4. Fracture Risk Calculation: FRAX (10-year Fracture Risk) Score: BD/Dexa Bone Density Study IMPRESSION: Patient demonstrates osteopenia of the left hip and normal bone mineral density of the lumbar spine and right hip. Recommend follow-up, if clinically warranted. Reading Location: [id number]
== END | disposition home or self-care (01) ==
LOC: OPBD 13:42
PROVIDERS: PCP Family Medicine
DX: Z13.820 Encounter for screening for osteoporosis (principal); Z78.0 Asymptomatic menopausal state
CPT/HCPCS: 77080

== ENCOUNTER → 2025-06-30 | Outpatient (CLI) | payer MEDICARE, OTHER, SELFPAY ==
--- NOTE | 2025-06-30 10:15 | BI_ITS ---
EXAM: SCRN MAMM (CAD)W/CHARLOTTE BILAT DATE: 06/30/2025 CLINICAL HISTORY: F, Age 64 y/o , SCREEN FOR BREAST CANCER Aunt with breast cancer. TECHNIQUE: SCRN MAMM (CAD)W/CHARLOTTE BILAT COMPARISON: Prior exam(s) dated June 29, 2024.. FINDINGS: TISSUE DENSITY: The breasts are extremely dense, which lowers the sensitivity of mammography. Bilateral Breast Mammographic Findings: No significant masses, calcifications or other abnormalities are identified. Stable bilateral axillary lymph nodes. No suspicious masses, areas of developing architectural distortion, or suspicious calcifications. There has been no significant interval change. BI/SCRN MAMM (CAD)W/CHARLOTTE BILAT IMPRESSION: Stable examination. OVERALL FINAL ASSESSMENT BI-RADS 2: BENIGN RECOMMENDATION: Routine annual follow-up in 1 Year A letter with findings and recommendations will be mailed to the patient. Reading Location: [id number]
--- OUTSIDE RECORDS SUMMARY | 2025-06-30 12:52 | XMS RPT_ITS | CCD ---
Author Organization [facility] Care Team Providers Care Disc Jockey Name Role Phone Dr. Tory Hernandez Primary Care Provider [phone] Tory Hernandez Referring Provider [phone] Betsy Henley Attending Provider Dr. Tory Hernandez MD Primary Care Provider Charlesorrow CHICKEN VACCINATOR-CNikko Attending Provider Charlesorrow CHICKEN VACCINATOR-C, Nikko Referring Provider Dr. Tory Hernandez MD Referring Provider Bigg CHICKEN VACCINATOR-CEmily Attending Provider [phone] McMorrow CHICKEN VACCINATOR, Nikko Attending Unavailable McMorrow CHICKEN VACCINATORNikko Referring Unavailable Tory Hernandez Primary Care Unavailable McMorrow CHICKEN VACCINATORNikko Referring Unavailable Tory Hernandez S Primary Care Unavailable McMorrow CHICKEN VACCINATORNikko Attending Unavailable Tory Hernandez Primary Care Unavailable Emily Pride Attending Unavailable Emily Pride Referring Unavailable Tory Hernandez Primary Care Unavailable Tory Hernandez Referring Unavailable Emily Pride Attending Unavailable Medications Current Medications Medication Drug Class(es) Dates Sig (Normalized) Sig (Original) atorvastatin 10 mg oral tablet (8 sources) HMG-CoA Reductase Inhibitor Start: 08-13-2018 take 1 tablet by mouth at bedtime Atorvastatin 10 MG tablet Active 10 mg PO AT BEDTIME August 13, 2018 12:00am betamethasone 0.5 mg/ml topical lotion (8 sources) Corticosteroid Start: 05-29-2022 Betamethasone Dipropionate 0.05 % lotion Active 1 NMA TOPICAL DAILY May 29, 2022 12:00am calcium carbonate 1500 mg / cholecalciferol 800 unt chewable tablet (8 sources) Vitamin D Start: 05-29-2022 Calcium Carbonate-Vitamin D3 (Caltrate 600 Plus D) 600 mg-20 mcg (800 unit) tablet,chewable Active 1 {tbl} PO DAILY May 29, 2022 12:00am cholecalciferol 0.025 mg oral tablet (8 sources) Vitamin D Start: 07-01-2015 take 2 tablets by mouth once daily Cholecalciferol (Vitamin D3) (Vitamin D3) 1,000 UNIT tablet Active 2000 U PO DAILY July 01, 2015 12:00am L.Acidoph, Paracasei,B. Lactis (5 sources) Start: 08-13-2018 L.Acidoph, Paracasei,B. Lactis Active 1 EACH PO DAILY August 13, 2018 12:00am Multivit Prt-Akux-So-Herb 186 (Hair, Skin And Nails Advanced) 1 EACH tablet (8 sources) Start: 08-13-2018 take 1 tablet by mouth once daily Multivit Evk-Pqmh-Rt-Herb 186 (Hair, Skin And Nails Advanced) 1 EACH tablet Active 1 NMA PO DAILY August 13, 2018 12:00am Start: 08-13-2018 take 1 tablet by sharif th once daily Multivit Idz-Dodo-Wp-Herb 186 (Hair, Skin And Nails Advanced) 1 EACH tablet Active 1 EACH PO DAILY August 13, 2018 12:00am ubidecarenone 75 mg oral cap julio (16 sources) Start: 05-29-2022 Coenzyme Q10 ( Ultra Coq10) 75 mg capsule Active 75 mg PO DAILY May 29, 2022 12:00am Start: 08-13-2018 End: 05-29-2022 take 10 tablets by mouth once daily Coenzyme Q10 50 MG tablet,chewable Discontinued 100 mg PO DAILY August 13, 2018 12:00am May 29, 2022 9:16am Completed/Discontinued Medications Medication Drug Class(es) Dates Sig (Normalized) Sig (Original) docusate sodium 100 mg oral capsule (8 sources) Start: 08-20-2018 End: 05-29-2022 take 1 capsule by mouth twice daily Docusate Sodium (Colace) 100 MG capsule Discontinued 100 mg PO TWICE A DAY August 20, 2018 12:00am May 29, 2022 9:16am 1 po bid to prevent constipation. estradiol 0.1 mg/ml vaginal cream (20 sources) Estrogen Start: 05-29-2022 End: 04-29-2025 Estradiol 0.01 % (0.1 mg/gram) cream Discontinued 1 g VAGINAL .3xw 42.5 May 03, 2023 3:22pm April 28, 2024 9:42am Start: 05-29-2022 End: 05-29-2022 Estradiol 0.01 % (0.1 mg/gra m) cream Discontinued 1 g VAGINAL TWICE A WEEK May 29, 2022 12:00am May 29, 2022 9:24am folic acid 0.4 mg oral tablet (8 sources) Start: 05-29-2022 End: 04-29-2025 take 0.4 mg by mouth once daily Folic Acid 400 mcg tablet Discontinued 0.4 mg PO DAILY May 29, 2022 12:00am April 29, 2025 10:46am Start: 05-29-2022 take 0.4 mg by mouth once gray y Folic Acid Active 0.4 MG PO DAILY May 29, 2022 12:00am L.Acidoph,Paracasei,B.Animal is 1 EACH capsule (3 sources) Start: 08-13-2018 End: 04-29-2025 take 1 capsule by mouth once daily L.Acidoph,Paracasei,B.Animalis 1 EACH capsule Discontinued 1 NMA PO DAILY August 13, 2018 12:00am April 29, 2025 10:47am Start: 08-13-2018 take 1 capsule by mouth once daily L.Acidoph,Paracasei,B.Animalis 1 EACH ca psule Active 1 NMA PO DAILY August 13, 2018 12:00am levothyroxine sodium 0.075 mg oral tablet (8 sources) l-Thyroxine Start: 07-01-2015 End: 04-29-2025 take 1 tablet by mouth once daily Levothyroxine 75 MCG tablet Discontinued 75 ug PO DAILY July 01, 2015 12:00am April 29, 2025 10:46am mecobalamin 1 mg sublingual tablet (8 sources) Start: 05-29-2022 End: 04-29-2025 Mecobalamin (Vitamin B12) 1,000 mcg tablet,disintegratin g Discontinued 1000 ug SL DAILY May 29, 2022 12:00am April 29, 2025 10:[address] tablet under tongue and allow to dissolve for at least30 secs before swallowing Start: 05-29-2022 Mecobalamin (V itamin B12) Active 1000 MCG SL DAILY May 29, 2022 12:00am place tablet under tongue and allow to dissolve for at least30 secs before swallowing naproxen 250 mg oral tablet (8 sources) Nonsteroidal Anti-inflammatory Drug Start: 08-20-2018 End: 05-29-2022 take 250-500 mg by mouth three times daily as needed for pain Naproxen 250 MG tablet Discontinued 250 - 500 mg PO THREE TIMES A DAY as needed for Mild-Mod Pain (1-03/20) August 20, 2018 12:26pm May 29, 2022 9:17am oxyCODONE hydrochloride 5 mg oral tablet (8 sources) Opioid Agonist Start: 08-20-2018 End: 08-27-2018 take 5-10 mg by mouth every six hours as needed for pain Oxycodone 5 MG tablet Discontinued 5 - 10 mg PO EVERY 6 HOURS NEEDED as needed for Mod-Severe Pain (-08/20) 30 05August 20, 2018 12:00am August 26, 2018 12:00am August 27, 2018 12:08am pyridoxine hydrochloride 25 mg oral tablet (8 sources) Start: 05-29-2022 End: 04-29-2025 take 1 tablet by mouth once daily Pyridoxine (Vitamin B6) 25 mg tablet Discontinued 25 mg PO DAILY May 29, 2022 12:00am April 29, 2025 10:47am Problems Problem Classification Problem Date Documented Da te Episodic/Chronic Disorders of lipid metabolism (8 sources) Hyperlipidemia; Translations: [Hyperlipidemia, unspecified] 05-29-2022 Chronic Other screening for suspected conditions (not mental disorders or infectious disease) (4 sources) Encounter for screening mammogram for malignant neoplasm of breast; Translations: [Encounter for screening for osteoporosis] Onset: 02-06-2025 Episodic Thyroid disorders (8 sources) Hypothyroidism; Translations: [Hypothyroidism, unspecified] 05-29-2022 Chronic Results Test Name Value Interpretation Reference Range Facility [facility] Office Visit Reporton 04-29-2025 [facility] Office Visit Report [address], [address] [place] [address] OFFICE VISIT Date of Service: 04/29/25 MR#: [id number] Acct: [id number] Name: TILA NEGRO Rep #: [id number] : 1960 Provider: DELMA Narayan Age/Sex: 64/F Location: [facility] [place] Status: Signed Intake Vital Signs 04/28/24 09:38 04/29/25 10:44 Height 5 ft 5.5 in 5 ft 5.5 in Weight: 181 lb BMI 29.6 BP 112/76 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 Voice Required: No Is patient in pain?: No Allergies No Known Allergies Allergy (Verified 04/29/25 10:41) Medications ???Medication ???Instructions ???Recorded ???Confirmed ???Type cholecalciferol (vitamin D3) 25 2,000 unit PO DAILY 07/01/1504/29 History mcg (1,000 unit) tablet (Vitamin D3) atorvastatin 10 mg tablet 10 mg PO QHS 08/13/18 04/29/25 His tory multivitamin,min-ferr ous fumarate 1 ea PO DAILY 08/13/18 04/29/25 H istory 3.3 mg-folic 25 mcg-herb tablet (Hair, Skin and Nails Advanced) betamethasone dipropionate 0.05 % 1 applic topical DAILY 05/29/22 0 04/29/25 History lotion calcium 600 mg (as carbonate)-vit 1 tab PO DAILY 05/29/22 04/29/25 History D3 20 mcg (800 unit) chewable tablet (Caltrate plus D) coenzyme Q10 75 mg capsule (Ultra 75 mg PO DAILY 05/29/22 04/29/25 History CoQ10) estradiol 0.01% (0.1 mg/gram) 1 g vaginal .3xw #42.5 grams 04/2904/29/25 Rx vaginal cream Is last menstrual period known: No Post menopausal: No Patient : No : No PFSH Surgical History S/P hemorrhoidectomy S/P vaginal hysterectomy S/P colonoscopy Family History Mother Thyroid disorder Aunt Breast cancer Brother Heart disease Other Diabetes Hypertension Social History Smoking Status: Never smoker alcohol intake: never substance use type: does not use caffeine: No what type of physical activity do you participate in: walking frequency: 5-6 times per week seatbelt use: always do you feel safe at home: Yes additional social history: -Fredis History 3 Elective abortions Hx Para 3 Spontaneous abortions Hx # Term Pregnancies Ectopic pregnancies Hx # Pregnancies Multiple births # of living children Past Pregnancies Del. Date Name GA/Weeks Outcome Route Bth Weight Infant Gen Labor Lgth Anesthesia Del Locatn Provider FOB Unknown Lorraine Unknown Sophia Unknown Chris HPI Encounter for routine gynecological examination Details: TILA NEGRO is a 64 year old who presents for annual exam. She reports no issues or concerns today. Last PAP: prior to hyst History of abnormal PAP: no Last mammogram: 2023; normal History of abnormal mammogram: no Colon cancer screenin; normal Other preventative health care screenings: Dr. Unger; PCP. Female Reproductive History Questions: metorrhagia: No, sexually active: Yes, dyspareunia: No and PCB: No Menopausal Symptoms: No hot flashes, Yes night sweats (mild), No weight change, No mood changes, No difficulty concentrating, No sleep problems and No change in libido Menopausal Treatment: Yes Vaginal Estrogen ROS Const Constitutional: Reports night sweats (mild); Denies body ache, chills or fever(s) Eyes Eyes: Denies change in vision ENT ENT: Denies dizziness Cardio Card: Denies chest pain at rest or palpitations Resp Resp: Denies cough or dyspnea GI GI: Denies abdominal pain, constipation or nausea : Reports vaginal dryness; Denies hot flashes, nipple discharge, pelvic pain, prolapse symptoms, vaginal discharge, vaginal odor or vaginal pruritus Skin Skin/Breast: Denies alopecia, rash, breast mass, breast pain, breast skin changes or nipple discharge Neuro Neuro: Denies dizziness Psych Psych: Denies change in libido or difficulty concentrating Endo Endo: Denies cold intolerance, excessive sweating or heat intolerance Exam Const General: cooperative, healthy appearing, comfortable, no acute distress, well groomed and well hydrated Nutritional Appearance: well nourished Orientation: alert, awake and oriented x3 HENMT Head: normal to inspection and normocephalic Ears: hearing grossly normal bilaterally and external ears normal Nose: external nose normal Face and sinus: normal facial exam Eyes General: appearance normal, both eyes and all related structures Neck Neck: normal visual inspection, full ROM and no lymphadenopathy Thyroid: thyroid normal Chest Chest palpation inspection: normal inspection of the chest Breast inspection: normal inspection of the breasts and normal inspection of the axillae Breast pal (more content not included)... Normal [facility] Bone density reportOrdered B y: Marquita Alvarez on 02-05-2025 Study report Skeletal system DXA [facility] Imaging Services [address] [place] [address] Dexa Bone Density Study MR#: [id number] Acct: [id number] Name: TILA NEGRO DEBORAH Rep #: [id number] : 1960 F 64 From: Woodrow Alvarez DO PCP: Dr. Tory Hernandez MD Status: REG CLI Study:Dexa Bone Density Study Date of Exam: 02/04/25 Exam# [id number] Ordering Dr: Nikko Jeter CHICKEN VACCINATOR CHICKEN VACCINATOR-C EXAM: DEXA BONE DENSITY STUDY 02/04/2025 REASON FOR EXAM: F,64 y/o patient is postmenopausal. TECHNIQUE: DXA scan of the lumbar spine and total body less head, using make and model. REFERENCE LINKS: ISCD Pediatric Positions ISCD Adult Positions COMPARISON: None. FINDINGS: BMD and Z-SCORES DEXA examination of lumbar spine shows bone mineral density measured 0.975 grams/centimeter squared. T-score measures -0.7 and Z-score measures 1.1. DEXA examination left femoral neck shows a bone mineral density measured 0.733 grams/centimeter squared. T-score measures -1.0 and Z-score measures 0.5. Total bone mineral density of the left hip measures 0.941 grams/centimeter squared. T-score measured 0 and Z-score measures 1.2. DEXA examination right femoral neck shows a bone mineral density measured 0.781 grams/centimeter squared. T-score measures -0.6 and Z-score measures 0.9. Total bone mineral density of the right hip measures 0.967 grams/centimeter squared. T-score measures 0.2 and Z-score measures 1.4. Fracture Risk Calculation: FRAX (10-year Fracture Risk) Score: BD/Dexa Bone Density Study IMPRESSION: Patient demonstrates osteopenia of the left hip and normal bone mineral density of the lumbar spine and right hip. Recommend follow-up, if clinically warranted. Reading Location: [id number] CC: Nikko ROMO NP-Chinyere Jeter; Dr. Tory Hernandez MD ~ Clean Rice Grader And Reel Tender: Signed [facility] Dexa Bone Density Studyon Dexa Bone Density Study [facility] Imaging Services [address] [place] [address] Dexa Bone Density Study MR#: [id number] Acct: [id number] Name: TILA NEGRO Rep #: [id number] : 1960 F 64 From: Marquita Sellers PCP: Dr. Tory Hernandez MD Status: REG CLI Study: Dexa Bone Density Study Date of Exam: 02/04/25 Exam# [id number] Ordering Dr: Nikko Jeter NP CHICKEN VACCINATOR -Chinyere EXAM: DEXA BONE DENSITY STUDY 02/04/2025 REASON FOR EXAM: F,64 y/o patient is postmenopausal. TECHNIQUE: DXA scan of the lumbar spine and total body less head, using make and model. REFERENCE LINKS: ISCD Pediatric Positions ISCD Adult Positions COMPARISON: None. FINDINGS: BMD and Z-SCORES DEXA examination of lumbar spine shows bone mineral density measured 0.975 grams/centimeter squared. T-score measures -0.7 and Z-score measures 1.1. DEXA examination left femoral neck shows a bone mineral density measured 0.733 grams/centimeter squared. T-score measures -1.0 and Z-score measures 0.5. Total bone mineral density of the left hip measures 0.941 grams/centimeter squared. T-score measured 0 and Z-score measures 1.2. DEXA examination right femoral neck shows a bone mineral density measured 0.781 grams/centimeter squared. T-score measures -0.6 and Z-score measures 0.9. Total bone mineral density of the right hip measures 0.967 grams/centimeter squared. T-score measures 0.2 and Z-score measures 1.4. Fracture Risk Calculation: FRAX (10-year Fracture Risk) Score: BD/Dexa Bone Density Study IMPRESSION: Patient demonstrates osteopenia of the left hip and normal bone mineral density of the lumbar spine and right hip. Recommend follow-up, if clinically warranted. Reading Location: [id number] CC: Nikko NGUYỄN McMorrow; Dr. Tory Hernandez MD Clean Rice Grader And Reel Tender: Signed Normal [facility] Hemoglobin A1con 02-02-2025 HbA1c (Bld) [Mass fraction] 5.6 % Low <=5.6 [facility] Comment on above: Order Comment: Order Date: 02/01/25 Order Info: 4548-4 - A1C Performed By: #### L [id number] #### [facility] [address] [place], [place], [id number] AST(SGOT)on 02-01-2025 AST [Catalytic activity/Vol] 22 U/L Normal <=31 [facility] Comment on above: Order Comment: Order Date: 02/01/25 Order Info: [id number] - LIPID Order Info: 1920-06 - AST Order Info: 1742-04 - ALT Order Info: 3025-2 - T4 Order Info: 3 - TSH Performed By: #### L [id number] #### [facility] [address] [place], [place], [address] Alanine Aminotransferas (SGP T)on 02-01-2025 ALT [Catalytic activity/Vol] 16 U/L Normal <=34 [facility] Comment on above: Order Comment: Order Date: 02/01/25 Order Info: [id number] - LIPID Order Info: 1920-06 - AST Order Info: 1742-04 - ALT Order Info: 3025-2 - T4 Order Info: 3 - TSH Performed By: #### L [id number] #### [facility] [address] [facility] [place], [id number] Calculated very low density lipoprotein (VLDL) cholesterol measurementOrdered By: Nikko Jeter on 02-01-2025 Calculated very low density lipoprotein (VLDL) cholesterol measurement 17 mg/dL 5-40 [facility] VLDL Cholesterol 17 mg/dL 5-40 [facility] Hemoglobin A1c percentageOrd ered By: Nikko Jeter on 02-01-2025 HbA1c (Bld) [Mass fraction] 5.6 % Low >5.7 [facility] LDL calc ser/plasOrdered By: Nikko Jeter on 02-01-2025 Cholesterol in LDL [Mass/Vol] 111 mg/dL [facility] Comment on above: Togproadwt=631-192 m g/dL & Higher Oqhq=490 mg/dL or greater LDL Cholesterol, Calculated 111 mg/dL [facility] Comment on above: Exuuhfkhbl=960-839 m g/dL & Higher Xhjp=100 mg/dL or greater Laboratory - Chemistry and C hemistry - challengeOrdered By: Nikko Jeter on 02-01-2025 AST [Catalytic activity/Vol] 22 U/L <32 [facility] Lipid Profileon 02-01-2025 CHOL:HDL 4.01 Normal [facility] Comment on above: Order Comment: Order Date: 02/01/25 Order Info: [id number] - LIPID Order Info: 1920-06 - AST Order Info: 1742-04 - ALT Order Info: 2 - T4 Order Info: 3015-3 - TSH Performed By: #### L 500.4100 #### [facility] [address] [place], [place], [address] Cholesterol [Mass/Vol] 170 mg/dL Normal <=200 [facility] Comment on above: Order Comment: Order Date: 02/01/25 Order Info: [id number] - LIPID Order Info: 1920-06 - AST Order Info: 1742-04 - ALT Order Info: 3025-2 - T4 Order Info: 3015-3 - TSH Result Comment: Chol esterol level, Desirable <200 mg/dL Borderline high cholesterol 200-239 mg/dL High cholesterol >=240 mg/dL Recommendations of the NCEP Adult Treatment Panel for the following risk-cutoff thresholds for the [place] population. Performed By: #### L [id number] #### [facility] [address] [place], [address] Cholesterol in HDL [Mass/Vol] 42 mg/dL Normal [facility] Comment on above: Order Comment: Order Date: 02/01/25 Order Info: [id number] - LIPID Order Info: 1920-06 - AST Order Info: 1742-04 - ALT Order Info: 3026-2 - T4 Order Info: 3016-3 - TSH Result Comment: Jennifer onal Cholesterol Education Program (NCEP) guidelines: <40 mg/dL: Low HDL-cholesterol (major risk factor for CHD) >= 60 mg/dL: High HDL-cholesterol (negative risk factor for CHD) HDL-cholesterol is affected by a number of factors, e.g. smoking, exercise, hormones, sex and age. Performed By: #### L [id number] #### [facility] [address] [place], [address] Cholesterol in LDL [Mass/Vol] 111 mg/dL Normal [facility] Comment on above: Order Comment: Order Date: 02/01/25 Order Info: [id number] - LIPID Order Info: 1920-06 - AST Order Info: 1742-04 - ALT Order Info: 3025-2 - T4 Order Info: 3015-3 - TSH Result Comment: Bord ecfskq=760-822 mg/dL Higher Gyyc=787 mg/dL or greater Performed By: #### L 500.4100 #### [facility] [address] [place], [address] Cholesterol in VLDL [Mass/Vol] 17 mg/dL Normal 5-40 [facility] Comment on above: Order Comment: Order Date: 02/01/25 Order Info: [id number] - LIPID Order Info: 1920-06 - AST Order Info: 1742-04 ALT Order Info: 3026-2 - T4 Order Info: 3016-3 - TSH Performed By: #### L [id number] #### [facility] [address] [place], [place], [address] Triglyceride [Mass/Vol] 85 mg/dL Normal [facility] Comment on above: Order Comment: Order Date: 02/01/25 Order Info: [id number] - LIPID Order Info: 1920-06 - AST Order Info: 1742-04 - ALT Order Info: 3026-2 - T4 Order Info: 3016-3 - TSH Result Comment: The drugs N-Acetylcysteine and Metamizole may falsely depress this assay. Normal range: <150 mg/dL Borderline High: 150-199 mg/dL High: 200-499 mg/dL Very High: >500 mg/dL Performed By: #### L [id number] #### [facility] [address] [place], [place], [address] Screening total cholesterol/ high density lipoprotein (HDL) cholesterol ratioOrdered By: Nikko Jeter on 02-01-2025 Cholesterol.total/Debra sterol in HDL [Mass ratio] 4.01 {ratio} [facility] Serum or plasma alanine jeffers otransferase (ALT) measurementOrdered By: Nikko Jeter on 02-01-2025 ALT [Catalytic activity/Vol] 16 U/L <35 [facility] Serum or plasma cholesterol in HDL measurement (mass/volume)Ordered By: Nikko Jeter on 02-01-2025 Cholesterol in HDL [Mass/Vol] 42 mg/dL >40 [facility] Comment on above: National Cholesterol Education Program (NCEP) guidelines:<40 mg/dL: Low HDL-cholesterol (major risk factor for CHD)>= 60 mg/dL: High HDL-cholesterol (negative risk factor for CHD)HDL-cholesterol is affected by a number of factors, e.g. smoking, exercise, hormones, sex and age. Serum or plasma cholesterol measurement (mass/volume)Ordered By: Nikko Jeter on 02-01-2025 Cholesterol [Mass/Vol] 170 mg/dL <201 [facility] Comment on above: Cholesterol level, D esirable <200 mg/dLBorderline high cholesterol 200-239 mg/dLHigh cholesterol >=240 mg/dLRecommendations of the NCEP Adult Treatment Panel for the following risk-cutoff thresholds for the [place] population. T4 Total, Thyroxinon T4 [Mass/Vol] 8.5 ug/dL Normal 4.8-13.9 [facility] Comment on above: Order Comment: Order Date: 02/01/25 Order Info: [id number] - LIPID Order Info: 1920-06 - AST Order Info: 1742-04 ALT Order Info: 3025-2 - T4 Order Info: 6-3 - TSH Performed By: #### L [id number] #### [facility] [address] [place], [address] TSH DL <= 0.005 mIU/L QnOrde red By: Nikko Jeter on 02-01-2025 Thyroid Stimulating Hormone (TSH) 1.450 uIU/mL 0.300-4.200 [facility] TSH Qn 1.450 uIU/mL 0.300-4.200 [facility] Thyroid Stim Hormone (TSH)on 02-01-2025 TSH 1.450 uIU/mL Normal 0.300-4.200 [facility] Comment on above: Order Comment: Order Date: 02/01/25 Order Info: [id number] - LIPID Order Info: 1920-06 - AST Order Info: 1742-04 Order Info: 3025-12 - T4 Order Info: 3 - TSH Performed By: #### L [id number] #### [facility] [address] [facility] [place], [address] ThyroxineOrdered By: Nikko Moody on 02-01-2025 T4 [Mass/Vol] 8.5 ug/dL 4.8-13.9 [facility] Triglycerides measurementOrd ered By: Nikko Jeter on 02-01-2025 Triglyceride [Mass/Vol] 85 mg/dL <199 [facility] Comment on above: The drugs N-Acetylcy steine and Metamizole may falsely depress this assay. Normal range: <150 mg/dLBorderline High: 150-199 mg/dLHigh: 200-499 mg/dLVery High: >500 mg/dL Basophil percentageOrdered B y: Tory Hernandez on 01-16-2024 Cholesterol [Mass/Vol] 172 mg/dL <200 [facility] Comment on above: <200 mg/dL Desirable 200-240 mg/dL Borderline >240 mg/dL High Risk Triglyceride [Mass/Vol] 112 mg/dL <199 [facility] Comment on above: The drugs N-Acetylcy steine and Metamizole may falsely depress this assay.Serum Triglycerides Reference Interval Normal <150 mg/dL Borderline high 150 - 199 mg/dL High 200 - 499 mg/dL Very High > or = 500 mg/dL Laboratory - Chemistry and C hemistry - challengeOrdered By: Tory Hernandez on 01-16-2024 Cholesterol in HDL [Mass/Vol] 43 mg/dL >40 [facility] Comment on above: The drugs N-Acetylcy steine and Metamizole may falsely depress this assay. Reference Range HDL <40 mg/dL Low HDL Cholesterol HDL >or= 60 mg/dL High HDL Cholesterol Cholesterol in LDL [Mass/Vol] 107 mg/dL 0-130 [facility] No Panel InformationOrdered By: Tory Hernandez on 01-16-2024 VLDL Cholesterol 22 mg/dL 5-40 [facility] Serum or plasma thyroid stim ulating hormone (TSH) measurement (units/volume)Ordered By: Tory Hernandez on 01-16-2024 TSH Qn 1.66 uIU/mL 0.358-3.74 [facility] Thin prep Papanicolaou smear with manual screeningOrdered By: Tory Hernandez on 01-16-2024 Thin prep Papanicolaou smear with manual screening 1.14 ng/dL 0.76-1.46 [facility] Basophil percentageOrdered B y: Dr. Hernandez on 01-14-2023 Cholesterol [Mass/Vol] 176 mg/dL <200 [facility] Comment on above: <200 mg/dL Desirable 200-240 mg/dL Borderline >240 mg/dL High Risk Triglyceride [Mass/Vol] 123 mg/dL <199 [facility] Comment on above: The drugs N-Acetylcy steine and Metamizole may falsely depress this assay.Serum Triglycerides Reference Interval Normal <150 mg/dL Borderline high 150 - 199 mg/dL High 200 - 499 mg/dL Very High > or = 500 mg/dL Laboratory - Chemistry and C hemistry - challengeOrdered By: Dr. Hernandez on 01-14-2023 ALT [Catalytic activity/Vol] 24 U/L 13-56 [facility] T4 [Mass/Vol] 11.9 ug/dL 4.8-13.9 [facility] No Panel InformationOrdered By: Dr. Hernandez on 01-14-2023 Parathyroid Hormone (Intact) 62.3 pg/mL 18.4-80.1 [facility] Thyroid Stimulating Hormone (TSH) 1.21 uIU/mL 0.358-3.74 [facility] Vitamin D 25-Hydroxy 34.9 ng/mL [facility] Comment on above: Vitamin D 25(OH) Sta tus Range Deficiency <20 ng/mL (50nmol/L) Insufficiency 20 - 30 ng/mL (50 - 75 nmol/L) Sufficiency 30 - 100 ng/mL (75 - 250 nmol/L) Toxicity >100 ng/mL (>250 nmol/L) Serum or plasma cholesterol in HDL measurement (mass/volume)Ordered By: Dr. Hernandez on 01-14-2023 Cholesterol in HDL [Mass/Vol] 38 mg/dL >40 [facility] Comment on above: The drugs N-Acetylcy steine and Metamizole may falsely depress this assay. Reference Range HDL <40 mg/dL Low HDL Cholesterol HDL >or= 60 mg/dL High HDL Cholesterol Serum or plasma cholesterol in VLDL measurement (mass/volume)Ordered By: Dr. Hernandez on 01-14-2023 Cholesterol in VLDL [Mass/Vol] 25 mg/dL 5-40 [facility] Serum or plasma low density lipoprotein (LDL) cholesterol measurement (mass/volume)Ordered By: Dr. Hernandez on 01-14-2023 Cholesterol in LDL [Mass/Vol] 113 mg/dL 0-130 [facility] Thin prep Papanicolaou smear with manual screeningOrdered By: Dr. Hernandez on 01-14-2023 Thin prep Papanicolaou smear with manual screening 16 U/L 15-37 [facility] Vital Signs Date Time Vital Sign Value Performing Clinician Trenton hutton 04-29-2025 10:44-0404 Body height 166.[address] Tory Hernandez MD Work Phone: [facility] 04-29-2025 10:44-0400 Body mass index (BMI) [Ratio] 29.6 kg/m2 Dr. Tory Hernandez MD Work Phone: [facility] 04-29-2025 10:44-0400 Body weight 82.[address] Tory Hernandez MD Work Phone: [facility] 04-29-2025 10:44-0400 Diastolic blood pressure 76 mm[Hg] Dr. Tory Hernandez MD Work Phone: [facility] 04-29-2025 10:44-0400 Systolic blood pressure 112 mm[Hg] Dr. Tory Hernandez MD Work Phone: [facility] 05-29-2022 09:14-0400 Body height 166.[address] Tory Hernandez Work Phone: [facility] Work Phone: Encounters Encounter Date Encounter Type Care Provider Facility Start: 06-30-2025 ambulatory Tory Hernandez Facility: [facility] Start: 04-29-2025 Encounter for gynecological examination (general) (routine) [facility] Start: 04-29-2025 End: 04-29-2025 Patient encounter procedure Emily NGUYỄN -[facility] Work Phone: Start: 04-29-2025 End: 04-29-2025 Patient encounter status Emily NGUYỄN [facility] Start: 04-29-2025 End: 04-29-[address] Tory Hernandez MD Work Phone: [facility] Work Phone: Start: 02-04-2025 End: 02-04-[address] Tory Hernandez MD Work Phone: [facility] Work Phone: Start: 02-04-2025 End: 02-04-2025 Patient encounter procedure Nikko Jeter [facility] Work Phone: Start: 02-04-2025 End: 02-04-2025 ambulatory Nikko Abreu CHICKEN VACCINATOR Facility:[facility] Start: 02-01-2025 End: 02-01-[address] Tory Hernandez MD Work Phone: [facility] Work Phone: Start: 02-01-2025 End: 02-01-2025 [facility] Work Phone: Start: 02-01-2025 End: 02-01-2025 ambulatory Nikko [facility] CHICKEN VACCINATOR Facility:[facility] Start: 01-15-2024 End: 01-15-2024 ambulatory [facility] Work Phone: Start: 01-15-2024 End: 01-15-2024 Patient encounter procedure [facility] Start: 06-24-2023 End: 06-24-2023 ambulatory [facility] Work Phone: Start: 06-24-2023 End: 06-24-2023 Patient encounter procedure [facility]-Outpatient Breast Imaging Work Phone: Start: 01-14-2023 End: 01-14-2023 ambulatory [facility] Work Phone: Start: 01-14-2023 End: 01-14-2023 Patient encounter procedure [facility] Start: 06-18-2022 End: 06-18-[address] Tory Hernandez Work Phone: [facility]-Outpatient Breast Imaging Start: 05-29-2022 End: 05-29-[address] Tory Hernandez Work Phone: [facility] Procedures Date Procedure Procedure Detail Performing Clinician Start: 02-04-2025 Dual energy X-ray absorptiometry Dr. Tory Hernandez MD Work Phone: Start: 06-24-2023 Screening mammography Start: 06-18-2022 Screening mammography Mariana Hernandez Work Phone: Plan of Treatment Date Care Activity Detail Author MG Breast - bilateral Screening [facility] Payers Date Payer Category Payer Medicare [id number] 2025 Self-pay [id number] 2025 Unknown [id number] 2012 Unknown SELF PAY INSURANCE [id number] 9E [id number] 2012 Unknown [employer] [id number] Unknown [id number] Unknown [id number] Unknown [id number] [id number] Unknown [id number] [id number] Unknown [id number] [id number] [id number] Unknown [id number] [id number] Social History Date Type Detail Facility Start: [facility]29-[facility]22 [facility] Start: 1960 Sex Assigned At Female [facility] Start: 05-29-2022 [facility] (finding) [facility] Start: 02-06-2025 End: 02-08-2025 Sex Female (finding) [facility] Progress note 04-29-2025 Note Date & Type Note Facility 04-29-2025 Progress note [facility] Evaluation note Note Date & Type Note Facility Evaluation note Diagnosis Onset Date Encounter for routine gyneco logical examination noneactive [facility] Work Phone: Evaluation note Note Date & Type Note Facility Evaluation note No assessment information availa ble [facility] Work Phone: Evaluation note Note Date & Type Note Facility Evaluation note Diagnosis Onset Date Resolution Encounter for routine gynecological examination noneactive April 29, 2025 10:24am [facility] Work Phone: Progress note Note Date & Type Note Facility Progress note Note Date/Time April 29, 2025 11:09am [facility] [address] [place] [address], [address] [place] [address] OFFICE VISIT Date of Service: 04/29/25 MR#: [id number] Acct: [id number] Name: TILA NEGRO Rep #: [id number] : 1960 Provider: DELMA Pride Age/Sex: 64/F Location: [facility] [place] Status: Signed Intake Vital Signs 04/28/24 09:38 04/29/25 10:44 Height 5 ft 5.5 in 5 ft 5.5 in Weight: 181 lb BMI 29.6 BP 112/76 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 Voice Required: No Is patient in pain?: No Allergies No Known Allergies Allergy (Verified 04/29/25 10:41) Medications ?Medication ?Instructions ?Recorded ?Confirmed ?Type cholecalciferol (vitamin D3) 25 2,000 unit PO DAILY 04/29/25 History mcg (1,000 unit) tablet (Vitamin D3) atorvastatin 10 mg tablet 10 mg PO QHS 08/13/18 History multivitamin,min-ferrous fumarate 1 ea PO DAILY 04/29/25 History 3.3 mg-folic 25 mcg-herb tablet (Hair, Skin and Nails Advanced) betamethasone dipropionate 0.05 % 1 applic topical EDWARD LY 05/29/22 04/29/25 History lotion calcium 600 mg (as carbonate)-vit 1 tab PO DAILY 05/2904/29/25 History D3 20 mcg (800 unit) chewable tablet (Caltrate plus D) coenzyme Q10 75 mg capsule (Ultra 75 mg PO DAILY 05/2904/29/25 History CoQ10) estradiol 0.01% (0.1 mg/gram) 1 g vaginal .3xw #42.5 g juventino 04/29/25 04/29/25 Rx vaginal cream Is last menstrual period known: No Post menopausal: No Patient : No : No PFSH Surgical History S/P hemorrhoidectomy S/P vaginal hysterectomy S/P colonoscopy Family History Mother Thyroid disorder Aunt Breast cancer Brother Heart disease Other Diabetes Hypertension Social History Smoking Status: Never smoker alcohol intake: never substance use type: does not use caffeine: No what type of physical activity do you participate in: walking frequency: 5-6 times per week seatbelt use: always do you feel safe at home: Yes additional social history: -Fredis History 3 Elective abortions Hx Para 3 Spontaneous abortions Hx # Term Pregnancies Ectopic pregnancies Hx # Pregnancies Multiple births # of living children Past Pregnancies Del. Date Name GA/Weeks Outcome Route Bth Weight Gen Labor Lgth Anesthesia Del Locatn Provider FOB Unknown Lorraine Unknown Sophia Unknown Chris HPI Encounter for routine gynecological examination Details: TILA NEGRO is a 64 year old who presents for annual exam. She reports no issuesor concerns today. Last PAP: prior to hyst History of abnormal PAP: no Last mammogram: 2023; normal History of abnormal mammogram: no Colon cancer screenin; normal Other preventative health care screenings: Dr. Unger; PCP. Female Reproductive History Questions: metorrhagia: No, sexually active: Yes, dyspareunia: No and PCB: No Menopausal Symptoms: No hot flashes, Yes night sweats (mild), No weight change, No mood changes, No difficulty concentrating, No sleep problems and No change inlibido Menopausal Treatment: Yes Vaginal Estrogen ROS Const Constitutional: Reports night sweats (mild); Denies body ache, chills or fever(s) Eyes Eyes: Denies change in vision ENT ENT: Denies dizziness Cardio Card: Denies chest pain at rest or palpitations Resp Resp: Denies cough or dyspnea GI GI: Denies abdominal pain, constipation or nausea : Reports vaginal dryness; Denies hot flashes, nipple discharge, pelvic pain, prolapse symptoms, vaginal discharge, vaginal odor or vaginal pruritus Skin Skin/Breast: Denies alopecia, rash, breast mass, breast pain, breast skin changes or nipple discharge Neuro Neuro: Denies dizziness Psych Psych: Denies change in libido or difficulty concentrating Endo Endo: Denies cold intolerance, excessive sweating or heat intolerance Exam Const General: cooperative, healthy appearing, comfortable, no acute distress, well groomed and well hydrated Nutritional Appearance: well nourished Orientation: alert, awake and oriented x3 HENMT Head: normal to inspection and normocephalic Ears: hearing grossly normal bilaterally and external ears normal Nose: external nose normal Face and sinus: normal facial exam Eyes General: appearance normal, both eyes and all related structures Neck Neck: normal visual inspection, full ROM and no lymphadenopathy Thyroid: thyroid normal Chest Chest palpation & inspection: normal inspection of the chest Breast inspection: normal inspection of the breasts and normal inspection of theaxillae Breast palpation: normal palpation of the breasts, normal palpation of the axillae and no axillary lymphadenopathy Resp Effort & Inspection: normal respiratory effort, able to speak in complete sentences and symmetric chest movement GI Inspection: normal to inspection Palpation: soft and no hepatosplenomegaly External Female Exam: normal external appearance and normal appearance of the urethra Urethra: normal appearance of the urethra Speculum Exam - Vagina: normal appearance of the vagina, normal vaginal discharge, vagina atrophic, no lesions and nontender Speculum Exam - Cervix: absent Bimanual Exam- Vagina & Uterus: uterus absent Bimanual Exam- Adnexa, other: normal adnexae, no masses, normal and non-tender Pelvic Support: normal Skin General: no rashes or lesions noted Neuro General: patient alert, patient awake, patient oriented x3 and moves all extremities Psych Appearance: grossly normal Mental Status: mental status grossly normal Affect: normal affect Speech and Movement: speech and movement normal Attitude: cooperative Coding Level of Care Code Established Pt Off vis,est,prev 65+yrs Patient Type Established Diagnoses Encounter for routine gynecological examination Z01.419 Assessment and Plan Assessment and Plan (1) Encounter for routine gynecological examination: Plan: Breast and pelvic exam complete. PAP due: hyst Mammogram due: orders placed to obtain Advised self breast exams monthly. Contraception: hyst/post menopausal. Bone density completed this year; osteopenia. Treatment through PCP. Advised incorporating healthy dietary choices such as increase in lean meats, fruits/vegetables, less processed food/sat fat/trans fats. Increase exercise to 30 minutes per day/5 days a week. This can include both weight bearing exercisesand/or brisk walking. Follow up with PCP for further preventative health screenings. Follow up 1 year for repeat annual oncology rep exam. Call office sooner with questions or concerns. Orders: Orders [facility]N MAMM (CAD)W/[place]TE BILAT 04/07/25 Z12.31 - Encounter for screening mammogramfor malignant neoplasm of breast Medications: Refilled estradiol 0.01%(0.1mg/gram) 1 g vaginal .3xw 42.5 grams 3RF 04/29/25 1109 <Electronically signed by Emily NGUYỄN> Date _ Emily NGUYỄN Cosigner Signature: Date (if applicable) CC: ~ [facility] Work Phone: Reason for referral (narrative) Note Date & Type Note Facility Reason for referral (narrative) No reason for referral information available [facility] Work Phone: Chief Complaint and Reason for Visit Chief Complaint 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 Reason for Visit Encounter for routin e gynecological examination Chief Complaint SCREENING Chief Complaint Admit Date EOERS February 01, 2025 2:4 7pm SCREENING February 04, 2025 1:3 6pm Chief Complaint Admit Date EORDERS February 01, 2025 2:4 7pm SCREENING February 04, 2025 1:3 6pm 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) April 29, 2025 10:2 4am Reason for Visit Admit Date Encounter for routine gynecological exam ination April 29, 2025 10:24am Family History No Family History Records Found Relationship Condition Age at Onset Recorded Date/T ozzy Not Specified Diabetes mellitus Unknown Hypertension Unknown mother Disorder of thyroid Unknown aunt Malignant neoplasm of breast Unknown Relationship Condition Age at Onset Recorded Date/T ozzy Not Specified Diabetes mellitus Unknown Hypertension Unknown mother Disorder of thyroid Unknown aunt Malignant neoplasm of breast Unknown brother Cardiac disease Unknown Advance Directives No Advanced Directives Records Found Advance Directive Response Recorded Date/ Time Advance Directives No July 07, 2015 6:55am Living Will Yes August 20 3:59pm Power of R D Intern Yes August 20, 2018 3:59pm Advance Directive Response Recorded Date/ Time Advance Directives No July 07, 2015 6:55am Summary Purpose Additional Source Comments Goals (unrecognized section and content) Goals may be documented in a n alternate sectionGoals may be documented in an alternate sectionGoals may be documented in an alternate sectionGoals may be documented in an alternate sectionGoals may be documented in an alternate sectionGoals may be documented in an alternate sectionGoals may be documented in an alternate section Care Teams (unrecognized sec tion and content) Team Status: Active Member Role Status Dates Dr. Tory Hernandez MD Family Provider Active Dr. Tory Hernandez MD Primary Care Provider Active Team Status: Inactive Member Role Status Dates Dr. Tory Hernandez MD Primary Care Provider, Attendin g Provider Active Team Status: Inactive Member Role Status Dates Dr. Tory Hernandez MD Primary Care Provider Active Dr. Betsy Henley DO Attending Provider, Refe ing Provider Active Team Status: Active Member Role Status Dates Dr. Tory Hernandez MD Primary Care Provider Active Team Status: Inactive Member Role Status Dates Dr. Tory Hernandez MD Primary Care Provider Active Start: February 01, 2025 End: February 01, 2025 Nikko Jeter NP [facility]INATOR-C Attending Provider Active Start: February 01, 2025 End: February 01, 2025 Nikko Jeter NP, [facility] V[facility]ATOR-C Referring Provider Active Start: February 01, 2025 End: February 01, 2025 Team Status: Active Member Role Status Dates Dr. Tory Hernandez MD Primary Care Provider Active Start: February 04, 2025 Nikko Jeter CHICKEN VACCINATOR, [facility]EN VACCINATOR-C Attending Provider Active Start: February 04, 2025 Nikko Jeter NP CHICKEN VACCINATOR-C Referring Provider Active Start: February 04, 2025 Team Status: Inactive Member Role Status Dates Dr. Tory Hernandez MD Primary Care Provider Active Start: February 04, 2025 End: February 04, 2025 DELMA Lopez NP Attending Provider Active Start: February 04, 2025 End: February 04, 2025 DELMA Lopez NP Referring Provider Active Start: February 04, 2025 End: February 04, 2025 Team Status: Inactive Member Role Status Dates Dr. Tory Hernandez MD Primary Care Provider Active Start: April 29, 2025 End: April 29, 2025 Dr. Tory Hernandez MD Referring Provider Active Start: April 29, 2025 End: April 29, 2025 DELMA Araya Attending Provider Active Start: April 29, 2025 End: April 29, 2025 INFORMATION SOURCE (unrecogn ized section and content) DATE CREATED AUTHOR 06/29/2025 [facility] FOR RECORDS PERTAINING TO PATIENTS WHO ARE OR HAVE BEEN ENROLLED IN A CHEMICAL DEPENDENCY/SUBSTANCEABUSE PROGRAM, SOME INFORMATION MAY BE OMITTED. This clinical summary was aggregated from multiple sources. Caution should be exercised in using it in the provision of clinical care. This summary normalizes information from multiple sources, and as a consequence, information in this document may materially change the coding, format and clinical context of patient data. In addition, data may be omitted in some cases. CLINICAL DECISIONS SHOULD BE BASED ON THE PRIMARY CLINICAL RECORDS. [facility] [facility] [employer] [facility]. provides no warranty or guarantee of the accuracy or completeness of information in this document.
== END | disposition home or self-care (01) ==
PROVIDERS: PCP Family Medicine; Referring Provider Nurse Practitioner Family; Visit Provider Nurse Practitioner Family
DX: Z12.31 Encounter for screening mammogram for malignant neoplasm of breast (principal)
CPT/HCPCS: 77063; 77067

== ENCOUNTER → 2025-10-05 | Outpatient (CLI) | payer MEDICARE, OTHER, SELFPAY ==
[2025-10-05 11:59] LABS: Hematocrit 44.2 % (37-47); Hemoglobin 14.6 g/dL (12.0-15.0); Mean Corp Hgb Conc 33.0 g/dL (32-36); Mean Corpuscular Volume 94.0 fL (81-99); Mean Platelet Vol. 8.8 fl (6.2-12.0); Platelet Count 227 K/mm3 (150-450); RBC Distribution Width CV 12.7 % (11.6-14.6); RBC Distribution Width SD 44.2 fl (35.1-43.9); Red Blood Count 4.70 M/mm3 (4.2-5.4); White Blood Count 5.9 K/mm3 (4.4-11.0)
[2025-10-05 12:31] LABS: AST(SGOT) 21 U/L (<=31); Alanine Aminotransfer ALT/SGPT 17 U/L (<=34); Albumin, Serum 4.4 g/dL (3.4-4.8); Alkaline Phosphatase 81 U/L (35-104); Anion Gap 10 (5-15); BUN 13 mg/dL (4-19); BUN/Creat Ratio 19.1 RATIO (10-20); Calcium,Total 9.1 mg/dL (7.6-11.0); Carbon Dioxide 27.3 mmol/L (21.0-32.0); Chloride 102 mmol/L (98-108); Globulin 2.8 g/dL (2.2-4.2); Glucose 96 mg/dL (70-99); Magnesium 2.5 mg/dL (1.5-2.2); Potassium 4.4 mmol/L (3.3-5.1)
--- OUTSIDE RECORDS SUMMARY | 2025-10-05 13:10 | XMS RPT_ITS | CCD ---
Author Organization [facility] Care Team Providers Care Pastry Cook Name Role Phone Dr. Tory Hernandez Primary Care Provider Dr. Tory Hernandez Referring Provider Dr. Betsy Henley Attending Provider Dr. Tory Hernandez MD Primary Care Provider McMorrow PURCHASE ORDER CHECKER-CNikko Attending Provider Charlesorrow PURCHASE ORDER CHECKER-C, Nikko Referring Provider Dr. Tory Hernandez MD Referring Provider Bigg ROMO-CEmily Attending Provider Dr. Tory Hernandez MD Primary Care Provider Bigg ROMO-C, Emily Referring Provider Dr. Greg Douglass MD Primary Care Provider Greg Douglass Primary Care Unavailable Emily Pride Referring Unavailable Emily Pride Attending Unavailable McMorrow PURCHASE ORDER CHECKERNikko Attending Unavailable Tory Hernandez Primary Care Unavailable McMorrow PURCHASE ORDER CHECKERNikko Referring Unavailable McMorrow PURCHASE ORDER CHECKERNikko Referring Unavailable McMorrow PURCHASE ORDER CHECKERNikko Attending Unavailable Tory Hernandez Primary Care Unavailable Emily Pride Attending Unavailable Tory Hernandez Referring Unavailable Tory Hernandez Primary Care Unavailable Medications Current Medications Medication Drug Class(es) Dates Sig (Normalized) Sig (Original) atorvastatin 10 mg oral tablet (9 sources) HMG-CoA Reductase Inhibitor Start: 08-13-2018 take 1 tablet by mouth at bedtime Atorvastatin 10 MG tablet Active 10 mg PO AT BEDTIME August 13, 2018 12:00am betamethasone 0.5 mg/ml topical lotion (9 sources) Corticosteroid Start: 05-29-2022 Betamethasone Dipropionate 0.05 % lotion Active 1 NMA TOPICAL DAILY May 29, 2022 12:00am calcium carbonate 1500 mg / cholecalciferol 800 unt chewable tablet (9 sources) Vitamin D Start: 05-29-2022 Calcium Carbonate-Vitamin D3 (Caltrate 600 Plus D) 600 mg-20 mcg (800 unit) tablet,chewable Active 1 {tbl} PO DAILY May 29, 2022 12:00am cholecalciferol 0.025 mg oral tablet (9 sources) Vitamin D Start: 07-01-2015 take 2 tablets by mouth once daily Cholecalciferol (Vitamin D3) (Vitamin D3) 1,000 UNIT tablet Active 2000 U PO DAILY July 01, 2015 12:00am L.Acidoph, Paracasei,B. Lactis (5 sources) Start: 08-13-2018 L.Acidoph, Paracasei,B. Lactis Active 1 EACH PO DAILY August 13, 2018 12:00am Multivit Kit-Evvh-Op-Herb 186 (Hair, Skin And Nails Advanced) 1 EACH tablet (9 sources) Start: 08-13-2018 take 1 tablet by mouth once daily Multivit Zbw-Wnrp-Gp-Herb 186 (Hair, Skin And Nails Advanced) 1 EACH tablet Active 1 NMA PO DAILY August 13, 2018 12:00am Start: 08-13-2018 take 1 tablet by sharif th once daily Multivit Koh-Fatw-Vs-Herb 186 (Hair, Skin And Nails Advanced) 1 EACH tablet Active 1 EACH PO DAILY August 13, 2018 12:00am ubidecarenone 75 mg oral cap julio (18 sources) Start: 05-29-2022 Coenzyme Q10 ( Ultra [...] (Original) docusate sodium 100 mg oral capsule (9 sources) Start: 08-20-2018 End: 05-29-2022 take 1 capsule by mouth twice daily Docusate Sodium (Colace) 100 MG capsule Discontinued 100 mg PO TWICE A DAY 30 0 August 20, 2018 12:00am May 29, 2022 9:16am 1 po bid to prevent constipation. estradiol 0.1 mg/ml vaginal cream (20 sources) Estrogen Start: 05-29-2022 End: 04-29-2025 Estradiol 0.01 % (0.1 mg/gram) cream Discontinued 1 g VAGINAL .3xw 42.5 3 May 03, 2023 3:22pm April 28, 2024 9:42am Start: 05-29-2022 End: 05-29-2022 Estradiol 0.01 % (0.1 mg/gra m) cream Discontinued 1 g VAGINAL TWICE A WEEK May 29, 2022 12:00am May 29, 2022 9:24am folic acid 0.4 mg oral tablet (9 sources) Start: 05-29-2022 End: 04-29-2025 take 0.4 mg by mouth once daily Folic Acid 400 mcg tablet Discontinued 0.4 mg PO DAILY May 29, 2022 12:00am April 29, 2025 10:46am Start: 05-29-2022 take 0.4 mg by mouth once gray y Folic Acid Active 0.4 MG PO DAILY May 29, 2022 12:00am L.Acidoph,Paracasei,B.Animal is 1 EACH capsule (4 sources) Start: 08-13-2018 End: 04-29-2025 take 1 capsule by mouth once daily L.Acidoph,Paracasei,B.Animalis 1 EACH capsule Discontinued 1 NMA PO DAILY August 13, 2018 12:00am April 29, 2025 10:47am Start: 08-13-2018 take 1 capsule by mouth once daily L.Acidoph,Paracasei,B.Animalis 1 EACH ca psule Active 1 NMA PO DAILY August 13, 2018 12:00am levothyroxine sodium 0.075 mg oral tablet (9 sources) l-Thyroxine Start: 07-01-2015 End: 04-29-2025 take 1 tablet by mouth once daily Levothyroxine 75 MCG tablet Discontinued 75 ug PO DAILY July 01, 2015 12:00am April 29, 2025 10:46am mecobalamin 1 mg sublingual tablet (9 sources) Start: 05-29-2022 End: 04-29-2025 Mecobalamin (Vitamin [...] before swallowing naproxen 250 mg oral tablet (9 sources) Nonsteroidal Anti-inflammatory Drug Start: 08-20-2018 End: 05-29-2022 take 250-500 mg by mouth three times daily as needed for pain Naproxen 250 MG tablet Discontinued 250 - 500 mg PO THREE TIMES A DAY as needed for Mild-Mod Pain (1-5/10) August 20, 2018 12:26pm May 29, 2022 9:17am oxyCODONE hydrochloride 5 mg oral tablet (9 sources) Opioid Agonist Start: 08-20-2018 End: 08-27-2018 take 5-10 mg by mouth every six hours as needed for pain Oxycodone 5 MG tablet Discontinued 5 - 10 mg PO EVERY 6 HOURS NEEDED as needed for Mod-Severe Pain (4-10/10) 20 7 0 August 20, 2018 12:00am August 26, 2018 12:00am August 27, 2018 12:08am Postoperative abdominal pain History of hysterectomy for benign disease Unspecified abdominal pain Acquired absence of both cervix and uterus pyridoxine hydrochloride 25 mg oral tablet (9 sources) Start: 05-29-2022 End: 04-29-2025 take 1 tablet by mouth once daily Pyridoxine (Vitamin B6) 25 mg tablet Discontinued 25 mg PO DAILY May 29, 2022 12:00am April 29, 2025 10:47am Problems Problem Classification Problem Date Documented Da te Episodic/Chronic Disorders of lipid metabolism (9 sources) Hyperlipidemia; Translations: [Hyperlipidemia, unspecified] 05-29-2022 Chronic Other screening for suspected conditions (not mental disorders or infectious disease) (3 sources) Encounter for screening mammogram for malignant neoplasm of breast; Translations: [Encounter for screening for osteoporosis] Onset: 02-06-2025 Episodic Thyroid disorders (9 sources) Hypothyroidism; Translations: [Hypothyroidism, unspecified] 05-29-2022 Chronic Results Test Name Value Interpretation Reference Range Facility Breast imaging reportOrdered By: Avni Blake on 06-30-2025 Study report [facility] [address] [place] [address] SCRN MAMM (CAD)W/CHARLOTTE BILAT MR#: [id number] Acct: [id number] Name: TILA NEGRO Rep #: [id number] : 1960 F 64 From: [place] Blake MD PCP: Dr. Greg Douglass MD Status: RE G CLI Study:SCRN MAMM (CAD)W/CHARLOTTE BILAT Date of Exa m: 06/30/25 Exam# [id number] Ordering Dr: Emily Pride PURCHASE ORDER CHECKER-C EXAM: SCRN MAMM (CAD)W/CHARLOTTE BILAT DATE: 06/30/2025 CLINICAL HISTORY: F, Age 64 y/o , SCREEN FOR BREAST CANCER Aunt with breast cancer. TECHNIQUE: SCRN MAMM (CAD)W/CHARLOTTE BILAT COMPARISON: Prior exam(s) dated June 29, 2024.. FINDINGS: TISSUE DENSITY: The breasts are extremely dense, which lowers the sensitivity ofmammography. Bilateral Breast Mammographic Findings: No significant masses, calcifications or other abnormalities are identified. Stable bilateral axillary lymph nodes. No suspicious masses, areas of developing architectural distortion, or suspicious calcifications. There has been no significant interval change. BI/SCRN MAMM (CAD)W/CHARLOTTE BILAT IMPRESSION: Stable examination. OVERALL FINAL ASSESSMENT BI-RADS 2: BENIGN RECOMMENDATION: Routine annual follow-up in 1 Year A letter with findings and recommendations will be mailed to the patient. Reading Location: [facility] CC: PURCHASE ORDER CHECKER-C Emily Pride; Dr. Greg Douglass MD ~ Piano Assembler: Signed [facility] SCRN MAMM (CAD)W/CHARLOTTE BILATo n 06-30-2025 SCRN MAMM (CAD)W/CHARLOTTE BILAT [facility] [address] [place] [address] SCRN MAMM (CAD)W/CHARLOTTE BILAT MR#: [id number] Acct: [id number] Name: TILA NEGRO Rep #: [id number] : 1960 F 64 From: Avni alanis MD PCP: Dr. Greg Douglass MD Status: REG CLI Study: SCRN MAMM (CAD)W/CHARLOTTE BILAT Date of Exam: 06/12 Exam# [id number] Ordering Dr: Emily Pride EXAM: SCRN MAMM (CAD)W/CHARLOTTE BILAT DATE: 06/30/2025 CLINICAL HISTORY: F, Age 64 y/o , SCREEN FOR BREAST CANCER Aunt with breast cancer. TECHNIQUE: SCRN MAMM (CAD)W/CHARLOTTE BILAT COMPARISON: Prior exam(s) dated June 29, 2024.. FINDINGS: TISSUE DENSITY: The breasts are extremely dense, which lowers the sensitivity of mammography. Bilateral Breast Mammographic Findings: No significant masses, calcifications or other abnormalities are identified. Stable bilateral axillary lymph nodes. No suspicious masses, areas of developing architectural distortion, or suspicious calcifications. There has been no significant interval change. BI/SCRN MAMM (CAD)W/CHARLOTTE BILAT IMPRESSION: Stable examination. OVERALL FINAL ASSESSMENT BI-RADS 2: BENIGN RECOMMENDATION: Routine annual follow-up in 1 Year A letter with findings and recommendations will be mailed to the patient. Reading Location: [place] CC: DELMA Pride; Dr. 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 Normal [facility] Bone density reportOrdered B y: Marquita Alvarez on 02-05-2025 Study report Skeletal system DXA [facility] [address] [place], [place] [address] Dexa Bone Density Study MR#: [id number] Acct: [id number] Name: TILA NEGRO DEBORAH Rep #: [id number] : 1960 F 64 From: Woodrow Alvarez DO PCP: Dr. Tory Hernandez MD Status: REG CLI Study:Dexa Bone Density Study Date of Exam: 02/04/25 Exam# [id number] Ordering Dr: Nikko Jeter NP PURCHASE ORDER CHECKER-C EXAM: DEXA BONE DENSITY STUDY 02/04/2025 REASON [...] Recommend follow-up, if clinically warranted. Reading Location: [facility] CC: Nikko Jeter; Dr. Tory Hernandez MD ~ Piano Assembler: Signed [facility] Dexa Bone Density Studyon Dexa Bone Density Study [facility] [address] [place], [place] [address] Dexa Bone Density Study MR#: [id number] Acct: [id number] Name: TILA NEGRO DEBORAH Rep #: [id number] : 1960 F 64 From: Marquita Sellers PCP: Dr. Tory Hernandez MD Status: REG CLI Study: Dexa Bone Density Study Date of Exam: 02/04/25 Exam# [id number] Ordering Dr: Nikko Jeter NP, NP EXAM: DEXA BONE DENSITY STUDY 02/04/2025 REASON [...] Recommend follow-up, if clinically warranted. Reading Location: [id number] CC: Nikko NGUYỄN McMorrrandy; Dr. Tory Hernandez MD Piano Assembler: Signed Normal [facility] Hemoglobin A1con 02-02-2025 HbA1c (Bld) [Mass fraction] 5.6 % Low <=5.6 [facility] Comment on above: Order Comment: Order Date: 02/01/25 Order Info: 4548-4 - A1C Performed By: #### L 501.9985 #### [facility] [address] [facility] [place], [place], [id number] AST(SGOT)on 02-01-2025 AST [Catalytic activity/Vol] 22 U/L Normal <=31 [facility] Comment on above: Order Comment: Order Date: 02/01/25 Order Info: [id number] - LIPID Order Info: 1920-06 - AST Order Info: 1742-04 - ALT Order Info: 6-2 - T4 Order Info: 3015-3 - TSH Performed By: #### L 501.4100 #### [facility] [address] [place], [address] Alanine Aminotransferas (SGP T)on 02-01-2025 ALT [Catalytic activity/Vol] 16 U/L Normal <=34 [facility] Comment on above: Order Comment: Order Date: 02/01/25 Order Info: [id number] - LIPID Order Info: 1920-06 - AST Order Info: 1742-04 - ALT Order Info: 6-2 - T4 Order Info: 3015-3 - TSH Performed By: #### L 501.4405 #### [facility] [address] [place], [place], [id number] Calculated very low density lipoprotein (VLDL) cholesterol measurementOrdered By: Nikko Jeter on 02-01-2025 Calculated very low density lipoprotein (VLDL) cholesterol measurement 17 mg/dL -40 [facility] VLDL Cholesterol 17 mg/dL 5-40 [facility] Hemoglobin A1c percentageOrd ered By: Nikko Jeter on 02-01-2025 HbA1c (Bld) [Mass fraction] 5.6 % Low >5.7 [facility] LDL calc ser/plasOrdered By: Nkiko Jeter on 02-01-2025 Cholesterol in LDL [Mass/Vol] 111 mg/dL [facility] Comment on above: Frzdqdqdsy=894-221 m g/dL & Higher Jwhp=341 mg/dL or greater LDL Cholesterol, Calculated 111 mg/dL [facility] Comment on above: Njpefxbhvl=788-741 m g/dL & Higher Qzpp=872 mg/dL or greater Laboratory - Chemistry and C hemistry - challengeOrdered By: Nikko Jeter on 02-01-2025 AST [Catalytic activity/Vol] 22 U/L <32 [facility] Lipid Profileon 02-01-2025 CHOL:HDL 4.01 Normal [facility] Comment on above: Order Comment: Order Date: 02/01/25 Order Info: [id number] - LIPID Order Info: 1920-06 - AST Order Info: 1742-04 - ALT Order Info: 3025-2 - T4 Order Info: 3015-3 - TSH Performed By: #### L 500.4100 #### [facility] [address] [place], [place], [address] Cholesterol [Mass/Vol] 170 mg/dL Normal <=200 [facility] Comment on above: Order Comment: Order Date: 02/01/25 Order Info: 58625-6 - LIPID Order Info: 1920-06 - AST Order Info: 1742-04 - ALT Order Info: 6-2 - T4 Order Info: 3015-3 - TSH Result Comment: Chol esterol level, Desirable <200 mg/dL Borderline high cholesterol 200-239 mg/dL High cholesterol >=240 mg/dL Recommendations of the NCEP Adult Treatment Panel for the following risk-cutoff thresholds for the [place] population. Performed By: #### L 500.4100 #### [facility] [address] [place], [address] Cholesterol in HDL [Mass/Vol] 42 mg/dL Normal [facility] Comment on above: Order Comment: Order Date: 02/01/25 Order Info: 46419-0 - LIPID Order Info: 1920-06 - AST Order Info: 1742-04 ALT Order Info: 6-2 - T4 Order Info: 6-3 - TSH Result Comment: Jennifer onal Cholesterol Education Program (NCEP) guidelines: <40 mg/dL: Low HDL-cholesterol (major risk factor for CHD) >= 60 mg/dL: High HDL-cholesterol (negative risk factor for CHD) HDL-cholesterol is affected by a number of factors, e.g. smoking, exercise, hormones, sex and age. Performed By: #### L 500.4100 #### [facility] [address] [place], [address] Cholesterol in LDL [Mass/Vol] 111 mg/dL Normal [facility] Comment on above: Order Comment: Order Date: 02/01/25 Order Info: 28753-7 - LIPID Order Info: 1920-06 - AST Order Info: 1742-04 ALT Order Info: 3025-2 - T4 Order Info: 3015-3 - TSH Result Comment: Bord uklvpg=468-097 mg/dL Higher Ldjv=069 mg/dL or greater Performed By: #### L 500.4100 #### [facility] [address] [place], [address] Cholesterol in VLDL [Mass/Vol] 17 mg/dL Normal 5-40 [facility] Comment on above: Order Comment: Order Date: 02/01/25 Order Info: [id number] - LIPID Order Info: 1920-06 - AST Order Info: 1742-04 ALT Order Info: 3026-2 - T4 Order Info: 3016-3 - TSH Performed By: #### L 500.4100 #### [facility] [address] [place], [address] Triglyceride [Mass/Vol] 85 mg/dL Normal [facility] Comment on above: Order Comment: Order Date: 02/01/25 Order Info: 72333-2 - LIPID Order Info: 1920-06 - AST Order Info: 1741- - ALT Order Info: 3026-2 - T4 Order Info: 3016-3 - TSH Result Comment: The drugs N-Acetylcysteine and Metamizole may falsely depress this assay. Normal range: <150 mg/dL Borderline High: 150-199 mg/dL High: 200-499 mg/dL Very High: >500 mg/dL Performed By: #### L 500.4100 #### [facility] [address] [place], [address] Screening total cholesterol/ high density lipoprotein (HDL) cholesterol ratioOrdered By: Nikko Jeter on 02-01-2025 Cholesterol.total/Debra sterol in HDL [Mass ratio] 4.01 {ratio} [facility] Serum or plasma alanine jeffers otransferase (ALT) measurementOrdered By: Nikko Jeter on 02-01-2025 ALT [Catalytic activity/Vol] 16 U/L <35 [facility] Serum or plasma cholesterol in HDL measurement (mass/volume)Ordered By: Nikko Jeter on 02-01-2025 Cholesterol in HDL [Mass/Vol] 42 mg/dL >40 [facility] Comment on above: National Cholesterol Education Program (NCEP) guidelines:<40 mg/dL: Low HDL-cholesterol (major risk factor for CHD)>= 60 mg/dL: High HDL-cholesterol (negative risk factor for CHD)HDL-cholesterol is affected by a number of factors, e.g. smoking, exercise, hormones, sex and age. Serum or plasma cholesterol measurement (mass/volume)Ordered By: Nikko Jeter on 02-01-2025 Cholesterol [Mass/Vol] 170 mg/dL <201 [facility] Comment on above: Cholesterol level, D esirable <200 mg/dLBorderline high cholesterol 200-239 mg/dLHigh cholesterol >=240 mg/dLRecommendations of the NCEP Adult Treatment Panel for the following risk-cutoff thresholds for the [place] population. T4 Total, Thyroxinon 025 T4 [Mass/Vol] 8.5 ug/dL Normal 4.8-13.9 [facility] Comment on above: Order Comment: Order Date: 02/01/25 Order Info: [id number] - LIPID Order Info: 1920-06 - AST Order Info: 1742-04 - ALT Order Info: 3025-2 - T4 Order Info: 3015-3 - TSH Performed By: #### L 501.9310 #### [facility] [address] [place], [place], [id number] TSH DL <= 0.005 mIU/L QnOrde red By: Nikko Jeter on 02-01-2025 Thyroid Stimulating Hormone (TSH) 1.450 uIU/mL 0.300-4.200 [facility] TSH Qn 1.450 uIU/mL 0.300-4.200 [facility] Thyroid Stim Hormone (TSH)on 02-01-2025 TSH 1.450 uIU/mL Normal 0.300-4.200 [facility] Comment on above: Order Comment: Order Date: 02/01/25 Order Info: [id number] - LIPID Order Info: 1920-06 - AST Order Info: 1742-04 Order Info: 2 - T4 Order Info: 3015-3 - TSH Performed By: #### L 501.9520 #### [facility] [address] [facility] [place], [place], [address] ThyroxineOrdered By: Nikko Moody on 02-01-2025 T4 [Mass/Vol] 8.5 ug/dL 4.8-13.9 [facility] Triglycerides measurementOrd ered By: Nikko Jeter on 02-01-2025 Triglyceride [Mass/Vol] 85 mg/dL <199 [facility] Comment on above: The drugs N-Acetylcy steine and Metamizole may falsely depress this assay. Normal range: <150 mg/dLBorderline High: 150-199 mg/dLHigh: 200-499 mg/dLVery High: >500 mg/dL Basophil percentageOrdered B y: Tory Hernandez on 01-16-2024 Cholesterol [Mass/Vol] 172 mg/dL <200 [facility] Comment on above: <200 mg/dL Desirable 200-240 mg/dL Borderline >240 mg/dL High Risk Triglyceride [Mass/Vol] 112 mg/dL <199 [facility] Comment on above: The drugs N-Acetylcy steine and Metamizole may falsely depress this assay.Serum Triglycerides Reference Interval Normal <150 mg/dL Borderline high 150 - 199 mg/dL High 200 - 499 mg/dL Very High > or = 500 mg/dL Laboratory - Chemistry and C hemistry - challengeOrdered By: Tory Hernandez on 01-16-2024 Cholesterol in HDL [Mass/Vol] 43 mg/dL >40 [facility] Comment on above: The drugs N-Acetylcy steine and Metamizole may falsely depress this assay. Reference Range HDL <40 mg/dL Low HDL Cholesterol HDL >or= 60 mg/dL High HDL Cholesterol Cholesterol in LDL [Mass/Vol] 107 mg/dL 0-130 [facility] No Panel InformationOrdered By: Tory Hernandez on 01-16-2024 VLDL Cholesterol 22 mg/dL 5-40 [facility] Serum or plasma thyroid stim ulating hormone (TSH) measurement (units/volume)Ordered By: Tory Hernandez on 01-16-2024 TSH Qn 1.66 uIU/mL 0.358-3.74 [facility] Thin prep Papanicolaou smear with manual screeningOrdered By: Tory Hernandez on 01-16-2024 Thin prep Papanicolaou smear with manual screening 1.14 ng/dL 0.76-1.46 [facility] Basophil percentageOrdered B y: Dr. Hernandez on 01-14-2023 Cholesterol [Mass/Vol] 176 mg/dL <200 [facility] Comment on above: <200 mg/dL Desirable 200-240 mg/dL Borderline >240 mg/dL High Risk Triglyceride [Mass/Vol] 123 mg/dL <199 [facility] Comment on above: The drugs N-Acetylcy steine and Metamizole may falsely depress this assay.Serum Triglycerides Reference Interval Normal <150 mg/dL Borderline high 150 - 199 mg/dL High 200 - 499 mg/dL Very High > or = 500 mg/dL Laboratory - Chemistry and C hemistry - challengeOrdered By: Dr. Hernandez on 01-14-2023 ALT [Catalytic activity/Vol] 24 U/L 13-56 [facility] T4 [Mass/Vol] 11.9 ug/dL 4.8-13.9 [facility] No Panel InformationOrdered By: Dr. Hernandez on 01-14-2023 Parathyroid Hormone (Intact) 62.3 pg/mL 18.4-80.1 [facility] Thyroid Stimulating Hormone (TSH) 1.21 uIU/mL 0.358-3.74 [facility] Vitamin D 25-Hydroxy 34.9 ng/mL [facility] Comment on above: Vitamin D 25(OH) Sta tus Range Deficiency <20 ng/mL (50nmol/L) Insufficiency 20 - 30 ng/mL (50 - 75 nmol/L) Sufficiency 30 - 100 ng/mL (75 - 250 nmol/L) Toxicity >100 ng/mL (>250 nmol/L) Serum or plasma cholesterol in HDL measurement (mass/volume)Ordered By: Dr. Hernandez on 01-14-2023 Cholesterol in HDL [Mass/Vol] 38 mg/dL >40 [facility] Comment on above: The drugs N-Acetylcy steine and Metamizole may falsely depress this assay. Reference Range HDL <40 mg/dL Low HDL Cholesterol HDL >or= 60 mg/dL High HDL Cholesterol Serum or plasma cholesterol in VLDL measurement (mass/volume)Ordered By: Dr. Hernandez on 01-14-2023 Cholesterol in VLDL [Mass/Vol] 25 mg/dL 5-40 [facility] Serum or plasma low density lipoprotein (LDL) cholesterol measurement (mass/volume)Ordered By: Dr. Hernandez on 01-14-2023 Cholesterol in LDL [Mass/Vol] 113 mg/dL 0-130 [facility] Thin prep Papanicolaou smear with manual screeningOrdered By: Dr. Hernandez on 01-14-2023 Thin prep Papanicolaou smear with manual screening 16 U/L 15-37 [facility] Vital Signs Date Time Vital Sign Value Performing Clinician Trenton hutton 04-29-2025 10:44-0400 Body height 166.[address] Tory Hernandez MD Work Phone: [facility] 04-29-2025 10:44-0400 Body mass index (BMI) [Ratio] 29.6 kg/m2 Dr. Tory Hernandez MD Work Phone: [facility] 04-29-2025 10:44-0400 Body weight 82.[address] Tory Hernandez MD Work Phone: [facility] 04-29-2025 10:44-0400 Diastolic blood pressure 76 mm[Hg] Dr. Tory Hernandez MD Work Phone: [facility] 04-29-2025 10:44-0400 Systolic blood pressure 112 mm[Hg] Dr. Tory Hernandez MD Work Phone: [facility] 05-29-2022 09:14-0400 Body height 166.[address] Tory Hernandez Work Phone: [facility] Work Phone: Encounters Encounter Date Encounter Type Care Provider Facility Start: 06-30-2025 End: 06-30-[address] Tory Hernandez MD Work Phone: -Outpatient Breast Imaging Start: 06-30-2025 End: 06-30-2025 Patient encounter procedure Emily NGUYỄN -Outpatient Breast Imaging Work Phone: Start: 06-30-2025 End: 06-30-2025 ambulatory Greg Douglass Facility:[facility] Start: 04-29-2025 Encounter for gynecological examination (general) (routine) without abnormal findings [facility] Start: 04-29-2025 End: 04-29-2025 Patient encounter procedure Emily NGUYỄN -[facility] Work Phone: Start: 04-29-2025 End: 04-29-2025 Patient encounter status Emily NGUYỄN [facility] Start: 04-29-2025 End: 04-29-[address] Tory Hernandez MD Work Phone: [facility] Work Phone: Start: 02-04-2025 End: 02-04-[address] Tory Hernandez MD Work Phone: [facility] Work Phone: Start: 02-04-2025 End: 02-04-2025 Patient encounter procedure Nikko Jeter PURCHASE ORDER CHECKER-C -Outpatient Bone Densitometry Work Phone: Start: 02-04-2025 End: 02-04-2025 ambulatory Nikko Jeter PURCHASE ORDER CHECKER Facility:[facility] Start: 02-01-2025 End: 02-01-[address] Tory Hernandez MD Work Phone: [facility] Work Phone: Start: 02-01-2025 End: 02-01-2025 Patient encounter procedure Nikko Jeter PURCHASE ORDER CHECKER-C -Formerly [facility] Work Phone: Start: 02-01-2025 End: 02-01-2025 ambulatory Nikko Jeter PURCHASE ORDER CHECKER Facility:[facility] Start: 01-15-2024 End: 01-15-2024 ambulatory [facility] Work Phone: Start: 01-15-2024 End: 01-15-2024 Patient encounter procedure [facility] Start: 06-24-2023 End: 06-24-2023 ambulatory [facility] Work Phone: Start: 06-24-2023 End: 06-24-2023 Patient encounter procedure [facility] Work Phone: Start: 01-14-2023 End: 01-14-2023 ambulatory [facility] Work Phone: Start: 01-14-2023 End: 01-14-2023 Patient encounter procedure [facility] Start: 06-18-2022 End: 06-18-[address] Tory Hernandez Work Phone: [facility] Start: 05-29-2022 End: 05-29-[address] Tory Hernandez Work Phone: [facility] Procedures Date Procedure Procedure Detail Performing Clinician Start: 06-30-2025 Screening mammography Mariana Hernandez MD Work Phone: Start: 02-04-2025 Dual energy X-ray absorptiometry Dr. Tory Hernandez MD Work Phone: Start: 06-24-2023 Screening mammography Start: 06-18-2022 Screening mammography Mariana Hernandez Work Phone: Plan of Treatment Date Care Activity Detail Author MG Breast - bilateral Screening [facility] Payers Date Payer Category Payer Unknown [id number] 2025 Medicare [id number] 2025 Self-pay [id number] 2025 Unknown [id number] 2012 Unknown SELF PAY INSURANCE [id number] [id number] 2012 Unknown [id number] Unknown [id number] 0 [id number] Unknown [id number] Unknown [id number] Unknown [id number] Unknown [id number] Social History Date Type Detail Facility Start: 05-29-2022 Tobacco smoking stat [facility] Unknown if ever smoked [facility] Start: 1960 Sex Assigned At Female [facility] Start: 05-29-2022 Tobacco smoking stat us ARIS Never smoked tobacco (finding) [facility] Start: 02-06-2025 End: 02-08-2025 Sex Female (finding) [facility] Evaluation note 04-29-2025 Note Date & Type Note Facility 04-29-2025 Evaluation note Diagnosis Onset Date Resolution Encounter for routine gynecological examination noneactive April 29, 2025 10:24am [facility] Work Phone: Progress note 04-29-2025 Note Date & Type Note Facility 04-29-2025 Progress note [facility] Evaluation note Note Date & Type Note Facility Evaluation note Diagnosis Onset Date Encounter for routine gyneco logical examination noneactive [facility] Work Phone: Evaluation note Note Date & Type Note Facility Evaluation note No assessment information availa ble [facility] Work Phone: Evaluation note Note Date & Type Note Facility Evaluation note Diagnosis Onset Date Resolution Encounter for routine gynecological examination noneactive April 29, 2025 10:24am [facility] Work Phone: Progress note Note Date & Type Note Facility Progress note Note Date/Time April 29, 2025 11:09am [facility] [address], [address] [place] [address] OFFICE VISIT Date of Service: 04/29/25 MR#: [id number] Acct: [id number] Name: TILA NEGRO Rep #: [id number] : 1960 Provider: DELMA Pride Age/Sex: 64/F Location: [facility] [place] Status: Signed Intake Vital Signs 04/28/24 09:38 04/29/25 10:44 Height 5 ft 5.5 in 5 ft 5.5 in Weight: 181 lb BMI 29.6 BP 112/76 Intake 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 Call office sooner with questions or concerns. 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 29, 2025 10:2 4am screen for breast cancer June 30 10:02am Reason for Visit Admit Date Encounter for routine gynecological exam ination April 29, 2025 10:24am Chief Complaint 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 Betsy Henley DO Attending Provider, Refe [facility] Provider Active Team Status: Active Member Role Status Dates Dr. Tory Hernandez MD Primary Care Provider Active Team Status: Inactive Member Role Status Dates Dr. Tory Hernandez MD Primary Care Provider Active Start: February 01, 2025 End: February 01, 2025 Nikko Jeter PURCHASE ORDER CHECKER, PURCHASE ORDER CHECKER-C Attending Provider Active Start: February 01, 2025 End: February 01, 2025 Nikko Jeter PURCHASE ORDER CHECKER, PURCHASE ORDER CHECKER-C Referring Provider Active Start: February 01, 2025 End: February 01, 2025 Team Status: Active Member Role Status Dates Dr. Tory Hernandez MD Primary Care Provider Active Start: February 04, 2025 Nikko Jeter PURCHASE ORDER CHECKER, PURCHASE ORDER CHECKER-C Attending Provider Active Start: February 04, 2025 Nikko Jeter PURCHASE ORDER CHECKER, PURCHASE ORDER CHECKER-C Referring Provider Active Start: February 04, 2025 Team Status: Inactive Member Role Status Dates Dr. Tory Hernandez MD Primary Care Provider Active Start: February 04, 2025 End: February 04, 2025 Nikko Jeter PURCHASE ORDER CHECKER, PURCHASE ORDER CHECKER-C Attending Provider Active Start: February 04, 2025 End: February 04, 2025 Nikko Jeter PURCHASE ORDER CHECKER, PURCHASE ORDER CHECKER-C Referring Provider Active Start: February 04, 2025 End: February 04, 2025 Team Status: Inactive Member Role Status Dates Dr. Tory Hernandez MD Primary Care Provider Active Start: April 29, 2025 End: April 29, 2025 Dr. Tory Hernandez MD Referring Provider Active Start: April 29, 2025 End: April 29, 2025 DELMA Araya Attending Provider Active Start: April 29, 2025 End: April 29, 2025 Team Status: Active Member Role/Relationship Status Dates Dr. Greg Douglass MD Primary Care Provider Active Team Status: Inactive Member Role/Relationship Status Dates Dr. Tory Hernandez MD Primary Care Provider Active Start: April 29, 2025 End: April 29, 2025 Dr. Tory Hernandez MD Referring Provider Active Start: April 29, 2025 End: April 29, 2025 DELMA Araya Attending Provider Active Start: April 29, 2025 End: April 29, 2025 Team Status: Inactive Member Role/Relationship Status Dates Emily Barkman , PURCHASE ORDER CHECKER-C Attending Provider Active Start: June 30, 2025 End: June 30, 2025 DELMA Araya Referring Provider Active Start: June 30, 2025 End: June 30, 2025 Dr. Greg Douglass MD Primary Care Provider Active Start: June 30, 2025 End: June 30, 2025 INFORMATION SOURCE (unrecogn ized section and content) DATE CREATED AUTHOR 07/09/2025 [facility] FOR RECORDS PERTAINING TO PATIENTS WHO ARE [...] BE BASED ON THE PRIMARY CLINICAL RECORDS. [employer] [facility]. provides no warranty or guarantee of the accuracy or completeness of information in this document.
== END | disposition home or self-care (01) ==
LOC: LAB 11:02
PROVIDERS: PCP Family Medicine; Referring Provider Internal Medicine Cardiovascular Disease; Visit Provider Internal Medicine Cardiovascular Disease
DX: I10 Essential (primary) hypertension (principal); E55.9 Vitamin D deficiency, unspecified; E03.9 Hypothyroidism, unspecified; E78.5 Hyperlipidemia, unspecified
CPT/HCPCS: 36415; 80053; 83735; 84443; 85027

== ENCOUNTER → 2025-10-29 | Outpatient (CLI) | payer MEDICARE, OTHER, SELFPAY ==
--- NOTE | 2025-10-29 06:42 | ECHOCS_ITS ---
Reason For Study Reason For Study: Palpitations, Abn EKG Procedure This was a 2D Doppler, Color Flow transthoracic echocardiogram. Contrast injection was performed. The study was technically difficult. Exam performed in department. Left Ventricle Normal size and thickness. The left ventricular ejection fraction is 65 %. Diastolic function is indeterminate. Right Ventricle Normal right ventricle. Atria The left and right atria are normal. Mitral Valve Trivial mitral valve insufficiency. Tricuspid Valve Mild (1+) tricuspid valve insufficiency. Normal pulmonary artery pressure. Aortic Valve Trisinus/trileaflet aortic valve. Pulmonic Valve Trivial pulmonic valve insufficiency. Great Vessels Normal sized aortic root. Pericardium/Pleural No pericardial effusion. Medication Diluted definity 1ml given slow IV push to enhance endocardial definition. MMode/2D Measurements & Calculations LVIDd: 4.3 cm IVSd: 0.86 cm Ao root diam: 3.2 cm LVIDs: 2.9 cm LVPWd: 1.00 cm RVDd: 2.8 cm FS: 32.3 % LAV(MOD-bp): 22.9 ml LVAd ap4: 28.7 cm2 SV(MOD-sp4): 53.0 ml LAV(MOD-bp) Indexed: 12.1 ml/m2 LVLd ap4: 7.7 cm SI(MOD-sp4): 28.0 ml/m2 LAV(MOD-sp2): 29.0 ml EDV(MOD-sp4): 89.1 ml LAV(MOD-sp4): 18.6 ml EDV(sp4-el): 90.4 ml LVAs ap4: 16.0 cm2 LVLs ap4: 6.2 cm ESV(MOD-sp4): 36.1 ml ESV(sp4-el): 35.3 ml EF(MOD-sp4): 59.4 % EF(sp4-el): 61.0 % SV(sp4-el): 55.1 ml LA A4 area: 10.0 cm2 LA dimension(2D): 3.1 cm RA A4 area: 7.1 cm2 TAPSE: 2.0 cm Time Measurements MV dec time: 0.33 sec Doppler Measurements & Calculations MV E max aguila: 61.5 cm/sec Lat Peak E' Aguila: 9.5 cm/sec Med Peak E' Aguila: 7.7 cm/sec MV A max aguila: 99.5 cm/sec E/E' lat: 6.5 E/E' med: 7.9 MV E/A: 0.62 MV dec slope: 187.2 cm/sec2 Ao V2 max: 142.8 cm/sec LV V1 max: 113.9 cm/sec Ao max P.2 mmHg LV V1 max P.2 mmHg Ao V2 mean: 100.4 cm/sec LV V1 mean P.7 mmHg Ao mean P.6 mmHg LV V1 mean: 77.8 cm/sec Ao V2 VTI: 31.7 cm LV V1 VTI: 27.5 cm AV (velocity ratio): 0.87 PA V2 max: 100.8 cm/sec TR max aguila: 291.0 cm/sec TR max P.0 mmHg ECHO/Echo Complete W/ Contrast Interpretation Summary The left ventricular ejection fraction is 65 %. Diastolic function is indeterminate. Mild (1+) tricuspid valve insufficiency. Ordering Physician: Maxime Mccarty Referring Physician: Greg Douglass Performed By: Ashley Sousa RDCS, RVT
--- OUTSIDE RECORDS SUMMARY | 2025-10-29 06:59 | XMS RPT_ITS | CCD ---
Author Organization [facility] Care Team Providers Care Radiation Oncologist Name Role Phone Dr. Tory Hernandez Primary Care Provider Dr. Tory Hernandez Referring Provider Dr. Betsy Henley Attending Provider Dr. Tory Hernandez MD Primary Care Provider McMorrow MARKETING AUTOMATION ANALYST-CNikko Attending Provider Charlesorrow MARKETING AUTOMATION ANALYST-C, Nikko Referring Provider Dr. Tory Hernandez MD Referring Provider Bigg ROMO-CEmily Attending Provider Dr. Tory Hernandez MD Primary Care Provider Bigg ROMO-C, Emily Referring Provider Dr. Greg Douglass MD Primary Care Provider Greg Douglass Primary Care Unavailable Emily Pride Referring Unavailable Emily Pride Attending Unavailable McMorrow MARKETING AUTOMATION ANALYSTNikko Attending Unavailable Tory Hernandez Primary Care Unavailable McMorrow MARKETING AUTOMATION ANALYSTNikko Referring Unavailable McMorrow MARKETING AUTOMATION ANALYSTNikko Referring Unavailable McMorrow MARKETING AUTOMATION ANALYSTNikko Attending Unavailable Tory Hernandez Primary Care Unavailable [...] PO DAILY August 13, 2018 12:00am Multivit Inu-Yxnb-Db-Herb 186 (Hair, Skin And Nails Advanced) 1 EACH tablet (9 sources) Start: 08-13-2018 take 1 tablet by mouth once daily Multivit Ztu-Ifov-Ux-Herb 186 (Hair, Skin And Nails Advanced) 1 EACH tablet Active 1 NMA PO DAILY August 13, 2018 12:00am Start: 08-13-2018 take 1 tablet by sharif th once daily Multivit Jfh-Zcsr-Mb-Herb 186 (Hair, Skin And Nails Advanced) 1 [...] By: Avni Blake on 06-30-2025 Study report [facility] [address] [place] [address] SCRN MAMM (CAD)W/CHARLOTTE BILAT MR#: [id number] Acct: [id number] Name: TILA NEGRO Rep #: [id number] : 1960 F 64 From: [place] Blake MD PCP: Dr. Greg Douglass MD Status: RE G CLI Study:SCRN MAMM (CAD)W/CHARLOTTE BILAT Date of Exa m: 06/30/25 Exam# [id number] Ordering Dr: Emily Pride MARKETING AUTOMATION ANALYST-C EXAM: SCRN MAMM (CAD)W/CHARLOTTE BILAT DATE: 06/30/2025 [...] to the patient. Reading Location: [place] CC: MARKETING AUTOMATION ANALYST-C Emily Pride; Dr. Greg Douglass MD ~ Desktop Support Technician: Signed [facility] SCRN MAMM (CAD)W/CHARLOTTE BILATo n 06-30-2025 SCRN MAMM (CAD)W/CHARLOTTE BILAT [facility] Services [address] [place] [address] SCRN MAMM (CAD)W/CHARLOTTE BILAT MR#: [id number] Acct: [id number] Name: TILA NEGRO Rep #: [id number] : 1960 F 64 From: Avni alanis MD PCP: Dr. Greg Douglass MD Status: REG CLI Study: SCRN MAMM (CAD)W/CHARLOTTE BILAT Date of Exam: 06/12 Exam# [id number] Ordering Dr: Emily Pride EXAM: SCRN MAMM [...] CC: DELMA Pride; Dr. Greg Douglass MD Desktop Support Technician: Signed Normal [facility] Car Supervisor Office Visit Reporton 04-29-2025 Car Supervisor Office Visit Report [facility] [address], [address] [place] [address] OFFICE VISIT Date of Service: 04/29/25 MR#: [id number] Acct: [id number] Name: TILA NEGRO DEBORAH Rep #: [id number] : 1960 Provider: DELMA Narayan Age/Sex: 64/F Location: [facility] Status: Signed Intake Vital Signs 04/28/24 09:38 04/29/25 10:44 Height 5 ft 5.5 in 5 ft 5.5 in Weight: 181 lb BMI 29.6 BP 112/76 Intake Visit Reasons: 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) 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 Normal [facility] Bone density reportOrdered B y: Marquita Alvarez on 02-05-2025 Study report Skeletal system DXA [facility] [address] [place], [place] [address] Dexa Bone Density Study MR#: [id number] Acct: [id number] Name: TILA NEGRO DEBORAH Rep #: [id number] : 1960 F 64 From: Woodrow Alvarez DO PCP: Dr. Tory Hernandez MD Status: REG CLI Study:Dexa Bone Density Study Date of Exam: 02/04/25 Exam# [id number] Ordering Dr: Nikko Jeter NP MARKETING AUTOMATION ANALYST-C EXAM: DEXA BONE DENSITY STUDY 02/04/2025 REASON [...] Nikko Jeter; Dr. Tory Hernandez MD ~ Desktop Support Technician: Signed [facility] Dexa Bone Density Studyon Dexa Bone Density Study [facility] Imaging Services [address] [place], [place] [address] Dexa Bone Density Study MR#: [id number] Acct: [id number] Name: TILA NEGRO DEBORAH Rep #: [id number] : 1960 F 64 From: Marquita Sellers PCP: Dr. Tory Hernandez MD Status: REG CLI Study: Dexa Bone Density Study Date of Exam: 02/04/25 Exam# [id number] Ordering Dr: Nikko Jeter NP, NP EXAM: [...] Recommend follow-up, if clinically warranted. Reading Location: [facility] CC: Nikko NGUYỄN McMorrrandy; Dr. Tory Hernandez MD Desktop Support Technician: Signed Normal [facility] Hemoglobin A1con 02-02-2025 HbA1c (Bld) [Mass fraction] 5.6 % Low <=5.6 [facility] Comment on above: Order Comment: Order Date: 02/01/25 Order Info: 4548-4 - A1C Performed By: #### L 501.9985 #### [facility] [address] [facility] [place], [place], [address] AST(SGOT)on 02-01-2025 AST [Catalytic activity/Vol] 22 U/L Normal <=31 [facility] Comment on above: Order Comment: Order Date: 02/01/25 Order Info: [id number] - LIPID Order Info: 1920-06 - AST Order Info: 1742-04 - ALT Order Info: 6-2 - T4 Order Info: 3015-3 - TSH Performed By: #### L 501.4100 #### [facility] [address] [place], [address] Alanine Aminotransferas (SGP T)on 02-01-2025 ALT [Catalytic activity/Vol] 16 U/L Normal <=34 [facility] Comment on above: Order Comment: Order Date: 02/01/25 Order Info: [id number] - LIPID Order Info: 1920-06 - AST Order Info: 1742-04 - ALT Order Info: 6-2 - T4 Order Info: 3015-3 - TSH Performed By: #### L 501.4405 #### [facility] [address] [place], [place], [address] Calculated very low density lipoprotein (VLDL) cholesterol measurementOrdered By: Nikko Jeter on 02-01-2025 Calculated very low density lipoprotein (VLDL) cholesterol measurement 17 mg/dL -40 [facility] VLDL Cholesterol 17 mg/dL 5-40 [facility] Hemoglobin A1c percentageOrd ered By: Nikko Jeter on 02-01-2025 HbA1c (Bld) [Mass fraction] 5.6 % Low >5.7 [facility] LDL calc ser/plasOrdered By: Nikko Jeter on 02-01-2025 Cholesterol in LDL [Mass/Vol] 111 mg/dL [facility] Comment on above: Snrpkctjfv=329-920 m g/dL & Higher Jiku=254 mg/dL or greater LDL Cholesterol, Calculated 111 mg/dL [facility] Comment on above: Gknkydmsih=506-409 m g/dL & Higher Fuwt=914 mg/dL or greater Laboratory - Chemistry and C hemistry - challengeOrdered By: Nikko Jeter on 02-01-2025 AST [Catalytic activity/Vol] 22 U/L <32 [facility] Lipid Profileon 02-01-2025 CHOL:HDL 4.01 Normal [facility] Comment on above: Order Comment: Order Date: 02/01/25 Order Info: [id number] - LIPID Order Info: 1920-06 - AST Order Info: 1742-04 - ALT Order Info: 3025-2 - T4 Order Info: 3015-3 - TSH Performed By: #### L 500.4100 #### [facility] [address] [place], [place], [address] Cholesterol [Mass/Vol] 170 mg/dL Normal <=[address] [facility] Comment on above: Order Comment: Order Date: 02/01/25 Order Info: [id number] - LIPID Order Info: 1920-06 - AST Order Info: 1742-04 - ALT Order Info: 6-2 - T4 Order Info: 3015-3 - TSH Result Comment: Chol esterol level, Desirable <200 mg/dL Borderline high cholesterol 200-239 mg/dL High cholesterol >=240 mg/dL Recommendations of the NCEP Adult Treatment Panel for the following risk-cutoff thresholds for the [place] population. Performed By: #### L 500.4100 #### [facility] [address] [place], [address] Cholesterol in HDL [Mass/Vol] 42 mg/dL Normal [facility] Comment on above: Order Comment: Order Date: 02/01/25 Order Info: [id number] - LIPID Order Info: 1920-06 - AST [...] age. Performed By: #### L 500.4100 #### [facility] [address] [place], [address] Cholesterol in LDL [Mass/Vol] 111 mg/dL Normal [facility] Comment on above: Order Comment: Order Date: 02/01/25 Order Info: [id number] - LIPID Order Info: 1920-06 - AST Order Info: 1742-04 ALT Order Info: 3025-2 - T4 Order Info: 3015-3 - TSH Result Comment: Bord rvoivp=551-821 mg/dL Higher Hlvf=992 mg/dL or greater Performed By: #### L 500.4100 #### [facility] [address] [place], [address] Cholesterol in VLDL [Mass/Vol] 17 mg/dL Normal 5-40 [facility] Comment on above: Order Comment: Order Date: 02/01/25 Order Info: [id number] - LIPID Order Info: 1920-06 - AST Order Info: 1742-04 ALT Order Info: 3026-2 - T4 Order Info: 3016-3 - TSH Performed By: #### L 500.4100 #### [facility] [address] [place], [address] Triglyceride [Mass/Vol] 85 mg/dL Normal [facility] Comment on above: Order Comment: Order Date: 02/01/25 Order Info: [id number] - LIPID Order Info: 1920-06 - AST Order Info: 1741- - ALT Order Info: 3026-2 - T4 Order Info: 3016-3 - TSH Result Comment: The drugs N-Acetylcysteine and Metamizole may falsely depress this assay. Normal range: <150 mg/dL Borderline High: 150-199 mg/dL High: 200-499 mg/dL Very High: >500 mg/dL Performed By: #### L 500.4100 #### [facility] [address] [place], [address] Screening total cholesterol/ high density lipoprotein (HDL) cholesterol ratioOrdered By: Nikko Jeter on 02-01-2025 Cholesterol.total/Debra sterol in HDL [Mass ratio] 4.01 {ratio} [facility] Serum or plasma alanine jeffers otransferase (ALT) measurementOrdered By: Nikko Jeter on 02-01-2025 ALT [Catalytic activity/Vol] 16 U/L <35 [facility] Serum or plasma cholesterol in HDL measurement (mass/volume)Ordered By: Nikko Jeter on 02-01-2025 Cholesterol in HDL [Mass/Vol] 42 mg/dL >40 [facility] Comment on above: National Cholesterol Education Program (NCEP) guidelines:<40 mg/dL: Low HDL-cholesterol (major risk factor for CHD)>= 60 mg/dL: High HDL-cholesterol (negative risk factor for CHD)HDL-cholesterol is affected by a number of factors, e.g. smoking, exercise, hormones, sex and age. Serum or plasma cholesterol measurement (mass/volume)Ordered By: Nikko Jeter on 02-01-2025 Cholesterol [Mass/Vol] 170 mg/dL <[address] [facility] Comment on above: Cholesterol level, D esirable <200 mg/dLBorderline high cholesterol 200-239 mg/dLHigh cholesterol >=240 mg/dLRecommendations of the NCEP Adult Treatment Panel for the following risk-cutoff thresholds for the [place] population. T4 Total, Thyroxinon 025 T4 [Mass/Vol] 8.5 ug/dL Normal 4.8-13.9 [facility] Comment on above: Order Comment: Order Date: 02/01/25 Order Info: [id number] - LIPID Order Info: 1920-06 - AST Order Info: 1742-04 - ALT Order Info: 3025-2 - T4 Order Info: 3015-3 - TSH Performed By: #### L 501.9310 #### [facility] [address] [place], [place], [address] TSH DL <= 0.005 mIU/L QnOrde red By: Nikko Jeter on 02-01-2025 Thyroid Stimulating Hormone (TSH) 1.450 uIU/mL 0.300-4.200 [facility] TSH Qn 1.450 uIU/mL 0.300-4.200 [facility] Thyroid Stim Hormone (TSH)on 02-01-2025 TSH 1.450 uIU/mL Normal 0.300-4.200 [facility] Comment on above: Order Comment: Order Date: 02/01/25 Order Info: [id number] - LIPID Order Info: 1920-06 - AST Order Info: 1742-04 Order Info: 2 - T4 Order Info: 3015-3 - TSH Performed By: #### L 501.9520 #### [facility] [address] [facility] [place], [place], [address] ThyroxineOrdered By: Nikko Moody on 02-01-2025 T4 [Mass/Vol] 8.5 ug/dL 4.8-13.9 [facility] Triglycerides measurementOrd ered By: Nikko Jeter on 02-01-2025 Triglyceride [Mass/Vol] 85 mg/dL <199 [facility] Comment on above: The drugs N-Acetylcy steine and Metamizole may falsely depress this assay. Normal range: <150 mg/dLBorderline High: 150-199 mg/dLHigh: 200-499 mg/dLVery High: >500 mg/dL Basophil percentageOrdered B y: Tory Hernandez on 01-16-2024 Cholesterol [Mass/Vol] 172 mg/dL <[address] [facility] Comment on above: <200 mg/dL Desirable 200-240 mg/dL Borderline >240 mg/dL High Risk Triglyceride [Mass/Vol] 112 mg/dL <199 [facility] Comment on above: The drugs N-Acetylcy steine and Metamizole may falsely depress this assay.Serum Triglycerides Reference Interval Normal <150 mg/dL Borderline high 150 - 199 mg/dL High 200 - 499 mg/dL Very High > or = 500 mg/dL Laboratory - Chemistry and C hemistry - challengeOrdered By: Tory Hernandez on 01-16-2024 Cholesterol in HDL [Mass/Vol] 43 mg/dL >40 [facility] Comment on above: The drugs N-Acetylcy steine and Metamizole may falsely depress this assay. Reference Range HDL <40 mg/dL Low HDL Cholesterol HDL >or= 60 mg/dL High HDL Cholesterol Cholesterol in LDL [Mass/Vol] 107 mg/dL 0-130 [facility] No Panel InformationOrdered By: Tory Hernandez on 01-16-2024 VLDL Cholesterol 22 mg/dL 5-40 [facility] Serum or plasma thyroid stim ulating hormone (TSH) measurement (units/volume)Ordered By: Tory Hernandez on 01-16-2024 TSH Qn 1.66 uIU/mL 0.358-3.74 [facility] Thin prep Papanicolaou smear with manual screeningOrdered By: Tory Hernandez on 01-16-2024 Thin prep Papanicolaou smear with manual screening 1.14 ng/dL 0.76-1.46 [facility] Basophil percentageOrdered B y: Dr. Hernandez on 01-14-2023 Cholesterol [Mass/Vol] 176 mg/dL <200 [facility] Comment on above: <200 mg/dL Desirable 200-240 mg/dL Borderline >240 mg/dL High Risk Triglyceride [Mass/Vol] 123 mg/dL <199 [facility] Comment on above: The drugs N-Acetylcy steine and Metamizole may falsely depress this assay.Serum Triglycerides Reference Interval Normal <150 mg/dL Borderline high 150 - 199 mg/dL High 200 - 499 mg/dL Very High > or = 500 mg/dL Laboratory - Chemistry and C hemistry - challengeOrdered By: Dr. Hernandez on 01-14-2023 ALT [Catalytic activity/Vol] 24 U/L 13-56 [facility] T4 [Mass/Vol] 11.9 ug/dL 4.8-13.9 [facility] No Panel InformationOrdered By: Dr. Hernandez on 01-14-2023 Parathyroid Hormone (Intact) 62.3 pg/mL 18.4-80.1 [facility] Thyroid Stimulating Hormone (TSH) 1.21 uIU/mL 0.358-3.74 [facility] Vitamin D 25-Hydroxy 34.9 ng/mL [facility] Comment on above: Vitamin D 25(OH) Sta tus Range Deficiency <20 ng/mL (50nmol/L) Insufficiency 20 - 30 ng/mL (50 - 75 nmol/L) Sufficiency 30 - 100 ng/mL (75 - 250 nmol/L) Toxicity >100 ng/mL (>250 nmol/L) Serum or plasma cholesterol in HDL measurement (mass/volume)Ordered By: Dr. Hernandez on 01-14-2023 Cholesterol in HDL [Mass/Vol] 38 mg/dL >40 [facility] Comment on above: The drugs N-Acetylcy steine and Metamizole may falsely depress this assay. Reference Range HDL <40 mg/dL Low HDL Cholesterol HDL >or= 60 mg/dL High HDL Cholesterol Serum or plasma cholesterol in VLDL measurement (mass/volume)Ordered By: Dr. Hernandez on 01-14-2023 Cholesterol in VLDL [Mass/Vol] 25 mg/dL 5-40 [facility] Serum or plasma low density lipoprotein (LDL) cholesterol measurement (mass/volume)Ordered By: Dr. Hernandez on 01-14-2023 Cholesterol in LDL [Mass/Vol] 113 mg/dL 0-130 [facility] Thin prep Papanicolaou smear with manual screeningOrdered By: Dr. Hernandez on 01-14-2023 Thin prep Papanicolaou smear with manual screening 16 U/L 15-37 [facility] Vital Signs Date Time Vital Sign Value Performing Clinician Trenton hutton 04-29-2025 10:44-0400 Body height 166.[address] Tory Hernandez MD Work Phone: [facility] 04-29-2025 10:44-0400 Body mass index (BMI) [Ratio] 29.6 kg/m2 Dr. Tory Hernandez MD Work Phone: [facility] 04-29-2025 10:44-0400 Body weight 82.[address] Tory Hernandez MD Work Phone: [facility] 04-29-2025 10:44-0400 Diastolic blood pressure 76 mm[Hg] Dr. Tory Hernandez MD Work Phone: [facility] 04-29-2025 10:44-0400 Systolic blood pressure 112 mm[Hg] Dr. Tory Hernandez MD Work Phone: [facility] 05-29-2022 09:14-0400 Body height 166.[address] Tory Hernandez Work Phone: [facility] Work Phone: Encounters Encounter Date Encounter Type Care Provider Facility Start: 06-30-2025 End: 06-30-[address] Tory Hernandez MD Work Phone: -Outpatient Breast Imaging Start: 06-30-2025 End: 06-30-2025 Patient encounter procedure Emily NGUYỄN -Outpatient Breast Imaging Work Phone: Start: 06-30-2025 End: 06-30-2025 ambulatory Greg Douglass Facility:[facility] Start: 04-29-2025 Encounter for gynecological examination (general) (routine) without abnormal findings [facility] Start: 04-29-2025 End: 04-29-2025 Patient encounter procedure Emily NGUYỄN -[facility] Work Phone: Start: 04-29-2025 End: 04-29-2025 Patient encounter status Emily NGUYỄN [facility] Start: 04-29-2025 End: 04-29-[address] Tory Hernandez MD Work Phone: [facility] Work Phone: Start: 02-04-2025 End: 02-04-[address] Tory Hernandez MD Work Phone: [facility] Work Phone: Start: 02-04-2025 End: 02-04-2025 Patient encounter procedure Nikko Jeter MARKETING AUTOMATION ANALYST-C -Outpatient Bone Densitometry Work Phone: Start: 02-04-2025 End: 02-04-2025 ambulatory Nikko Jeter MARKETING AUTOMATION ANALYST Facility:[facility] Start: 02-01-2025 End: 02-01-[address] Tory Hernandez MD Work Phone: [facility] Work Phone: Start: 02-01-2025 End: 02-01-2025 Patient encounter procedure Nikko Jeter MARKETING AUTOMATION ANALYST-C -[facility] Work Phone: Start: 02-01-2025 End: 02-01-2025 ambulatory Nikko Jeter MARKETING AUTOMATION ANALYST Facility:[facility] Start: 01-15-2024 End: 01-15-2024 ambulatory [facility] Work Phone: Start: 01-15-2024 End: 01-15-2024 Patient encounter procedure [facility] Start: 06-24-2023 End: 06-24-2023 ambulatory [facility] Work Phone: Start: 06-24-2023 End: 06-24-2023 Patient encounter procedure [facility]-Outpatient Breast Imaging Work Phone: Start: 01-14-2023 End: 01-14-2023 ambulatory [facility] Work Phone: Start: 01-14-2023 End: 01-14-2023 Patient encounter procedure [facility] Start: 06-18-2022 End: 06-18-[address] Tory Hernandez Work Phone: [facility]-Outpatient Breast Imaging Start: 05-29-2022 End: 05-29-[address] Tory Hernandez Work Phone: [facility] Procedures Date Procedure Procedure Detail Performing Clinician Start: 06-30-2025 Screening mammography Mariana Hernandez MD Work Phone: Start: 02-04-2025 Dual energy X-ray absorptiometry Dr. Tory Hernandez MD Work Phone: Start: 06-24-2023 Screening mammography Start: 06-18-2022 Screening mammography Mariana Hernandez Work Phone: Plan of Treatment Date Care Activity Detail Author MG Breast - bilateral Screening [facility] Payers Date Payer Category Payer Unknown [id number] 2025 Medicare [id number] 2025 Self-pay [id number] 2025 Unknown [id number] 2012 Unknown SELF PAY INSURANCE [id number] [id number] 2012 Unknown [id number] Unknown [id number] Unknown [id number] 2.16.8 [id number] Unknown [id number] [id number] Unknown [id number] 2.16.8 [id number] Unknown [id number] 2.16.8 [id number] Social History Date Type Detail Facility Start: 05-29-2022 Tobacco smoking stat [facility] Unknown if ever smoked [facility] Start: 1960 Sex Assigned At Female [facility] Start: 05-29-2022 Tobacco smoking stat us [facility] Never smoked tobacco (finding) [facility] Start: 02-06-2025 End: 02-08-2025 Sex Female (finding) [facility] Evaluation note 04-29-2025 Note Date & Type Note Facility 04-29-2025 Evaluation note Diagnosis Onset Date Resolution Encounter for routine gynecological examination noneactive April 29, 2025 10:24am [facility] Work Phone: Progress note 04-29-2025 Note Date & Type Note Facility 04-29-2025 Progress note [facility] Evaluation note Note Date & Type Note Facility Evaluation note Diagnosis Onset Date Encounter for routine gyneco logical examination noneactive [facility] Work Phone: Evaluation note Note Date & Type Note Facility Evaluation note No assessment information availa ble [facility] Work Phone: Evaluation note Note Date & Type Note Facility Evaluation note Diagnosis Onset Date Resolution Encounter for routine gynecological examination noneactive April 29, 2025 10:24am [facility] Work Phone: Progress note Note Date & Type Note Facility Progress note Note Date/Time April 29, 2025 11:09am [facility] [address], [address] [place] [address] OFFICE VISIT Date of Service: 04/29/25 MR#: [id number] Acct: [id number] Name: TILA NEGRO Rep #: [id number] : 1960 Provider: DELMA Pride Age/Sex: 64/F Location: [facility] Status: Signed Intake Vital Signs 04/28/24 09:38 04/29/25 10:44 Height 5 ft 5.5 in 5 ft 5.5 in Weight: 181 lb BMI 29.6 BP 112/76 Intake Visit 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 Call office sooner with questions or concerns. Orders: Orders SCRN MAMM (CAD)W/CHARLOTTE BILAT 04/07/25 Z12.31 - Encounter for screening mammogramfor malignant neoplasm of breast Medications: Refilled estradiol 0.01%(0.1mg/gram) 1 g vaginal .3xw 42.5 grams 3RF 04/29/25 1109 <Electronically signed by Emily NGUYỄN> Date _ Emily NGUYỄN Cosigner Signature: Date (if applicable) CC: ~ [facility] Work Phone: Reason for referral (narrative) Note Date & Type Note Facility Reason for referral (narrative) No reason for referral information available [facility] Work Phone: Chief Complaint and Reason for Visit Chief Complaint Admit Date 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) April 29, 2025 10:2 4am screen for breast cancer June 30 10:02am Reason for Visit Admit Date Encounter for routine gynecological exam ination April 29, 2025 10:24am Chief Complaint 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 Betsy Henley DO Attending Provider, [facility] Provider Active Team Status: Active Member Role Status Dates Dr. Tory Hernandez MD Primary Care Provider Active Team Status: Inactive Member Role Status Dates Dr. Tory Hernandez MD Primary Care Provider Active Start: February 01, 2025 End: February 01, 2025 Nikko Jeter MARKETING AUTOMATION ANALYST, MARKETING AUTOMATION ANALYST-C Attending Provider Active Start: February 01, 2025 End: February 01, 2025 Nikko Jeter MARKETING AUTOMATION ANALYST, MARKETING AUTOMATION ANALYST-C Referring Provider Active Start: February 01, 2025 End: February 01, 2025 Team Status: Active Member Role Status Dates Dr. Tory Hernandez MD Primary Care Provider Active Start: February 04, 2025 Nikko Jeter MARKETING AUTOMATION ANALYST, MARKETING AUTOMATION ANALYST-C Attending Provider Active Start: February 04, 2025 Nikko Jeter MARKETING AUTOMATION ANALYST, MARKETING AUTOMATION ANALYST-C Referring Provider Active Start: February 04, 2025 Team Status: Inactive Member Role Status Dates Dr. Tory Hernandez MD Primary Care Provider Active Start: February 04, 2025 End: February 04, 2025 Nikko Jeter MARKETING AUTOMATION ANALYST, MARKETING AUTOMATION ANALYST-C Attending Provider Active Start: February 04, 2025 End: February 04, 2025 Nikko Jeter MARKETING AUTOMATION ANALYST, MARKETING AUTOMATION ANALYST-C Referring Provider Active Start: February 04, 2025 [...] Member Role/Relationship Status Dates Emily Barkman , MARKETING AUTOMATION ANALYST-C Attending Provider Active Start: June 30, 2025 End: June 30, 2025 DELMA Araya Referring Provider Active Start: June 30, 2025 End: June 30, 2025 Dr. Greg Douglass MD Primary Care Provider Active Start: June 30, 2025 End: June 30, 2025 INFORMATION SOURCE (unrecogn ized section and content) DATE CREATED AUTHOR 07/09/2025 [facility] FOR RECORDS PERTAINING TO PATIENTS [...] BE BASED ON THE PRIMARY CLINICAL RECORDS. [employer] [facility]. provides no warranty or guarantee of the accuracy or completeness of information in this document.
--- NOTE | 2025-11-01 11:45 | STRESSREP ---
Stress Test Report Date: 10/29/2025 Procedure: Exercise tolerance test/imaging study Indications: Palpitations/abnormal ECG Consent: Per the patient Procedure: The patient exercised on a Jag protocol for 8 minutes and 59 seconds achieving a peak heart rate of 148 bpm (96% predicted maximal heart rate) with a peak blood pressure 168/70 mmHg and a peak MET capacity of 10.4 METs. The baseline ECG demonstrated sinus rhythm. The peak exercise ECG showed sinus tachycardia with no ischemic changes. There were no cardiac dysrhythmias pretest, during exercise, or recovery. The functional capacity was considered very good. There was no complaint of chest discomfort during exercise or recovery. The examination was discontinued secondary to target heart rate being achieved. The patient was injected with 11.2 mCi of technetium 99m Cardiolite and subsequently rest SPECT Cardiolite nuclear imaging was obtained in the horizontal long, vertical long, and short axis views. Post-exercise, the patient was injected with 34.1 mCi of technetium 99m Cardiolite and subsequently stress SPECT Cardiolite nuclear imaging was obtained in the horizontal long, vertical long, and short axis views. A gated Cardiolite study at peak stress was obtained. Rest and stress SPECT Cardiolite nuclear imaging status post realignment, normalization, and attenuation correction, demonstrates the appearance of relative uniform tracer uptake and myocardial perfusion appearing within normal limits. There is end systolic thickening and brightening. The gated Cardiolite study demonstrates myocardial thickening and inward wall motion. The reported LVEF is 74%. Impression: 1. Technically adequate (percent predicted maximal heart rate greater than 85%) exercise tolerance test 2. Peak exercise ECG with no ischemic changes 3. There were no cardiac dysrhythmias pretest, during exercise, or recovery 4. Rest and stress SPECT Cardiolite nuclear imaging demonstrate relative uniform tracer uptake and myocardial perfusion appearing within normal limits. 5. The gated Cardiolite study reports an LVEF of 74%. This note was generated with [employer] software. It may contain incorrect words, spelling, and punctuation that were not noted in checking the note before signing.
== END | disposition home or self-care (01) ==
LOC: CVS 06:42
PROVIDERS: PCP Family Medicine; Referring Provider Internal Medicine Cardiovascular Disease; Visit Provider Internal Medicine Cardiovascular Disease
DX: R00.2 Palpitations (principal); I47.29 Other ventricular tachycardia; R94.31 Abnormal electrocardiogram [ECG] [EKG]; I10 Essential (primary) hypertension; E03.9 Hypothyroidism, unspecified; E55.9 Vitamin D deficiency, unspecified
CPT/HCPCS: 78452; 93017; 93306; A9500; Q9957; A4216; C8929